=== PATIENT | male | born 1975 | race Caucasian/White ===

== ENCOUNTER 2020-11-19 15:17 | Outpatient (REF) | payer OTHER, SELFPAY ==
--- NOTE | ~2020-11-19 | XR_ITS ---
EXAMINATION: XR ANKLE, RIGHT CLINICAL INFORMATION: Right ankle swelling/discomfort for one month. COMPARISON: None. TECHNIQUE: AP, lateral, and mortise views of the right ankle. FINDINGS: No acute fracture or dislocation. The ankle mortise is maintained. No joint space narrowing or marginal osteophytes. No osseous erosion. Soft tissue swelling/thickening in the region of the distal Achilles, likely indicating underlying tendinopathy. XR/XR ankle RT 2V IMPRESSION: Soft tissue swelling/thickening in the region of the distal Achilles, likely indicating underlying tendinopathy.
== END 2020-11-19 15:18 | disposition home or self-care (01) ==
LOC: HO.XRAY 15:17
PROVIDERS: PCP Physician Assistant; Visit Provider Family Medicine
DX: R07.89 Other chest pain (principal); M25.471 Effusion, right ankle
CPT/HCPCS: 73600

== ENCOUNTER 2020-11-20 08:47 | Outpatient (REF) | payer OTHER, SELFPAY ==
[2020-11-20 10:25] LABS: Alanine Aminotransferase 23 U/L (0-40); Albumin Level 4.3 g/dL (3.5-5.0); Alkaline Phosphatase 57 U/L (39-117); Anion Gap 13 (12-20); Aspartate Amino Transferase 20 U/L (5-37); Bilirubin Total 0.8 mg/dL (0.0-1.0); Blood Urea Nitrogen 13 mg/dL (9-16); Carbon Dioxide 29 mmol/L (22-29); Chloride 103 mmol/L (96-108); Cholesterol 297 mg/dL; Estimated Glomerular Filt Rate > 60; Glucose Fasting 108 mg/dL (60-99); HDL Cholesterol 53 mg/dL; LDL Cholesterol Calculated 194 mg/dl; Potassium 4.2 mmol/L (3.3-5.1); Sodium 141 mmol/L (135-145); Total Protein 6.8 g/dL (6.5-8.0); Triglycerides 252 mg/dL
[2020-11-20 10:50] LABS: Prostate Specific Antigen Scr 0.28 ng/mL (<0.05-4.0); TSH reflex Free T4 0.61 uIU/mL (0.32-4.0)
== END 2020-11-20 08:48 | disposition home or self-care (01) ==
LOC: HO.LAB 08:47
PROVIDERS: PCP Physician Assistant; Visit Provider Family Medicine
DX: Z00.00 Encounter for general adult medical examination without abnormal findings (principal); Z12.5 Encounter for screening for malignant neoplasm of prostate
CPT/HCPCS: 36415; 80053; 80061; 84153; 84443

== ENCOUNTER 2020-12-26 16:00 | Outpatient (RCR) | payer OTHER, SELFPAY ==
--- NOTE | 2020-11-09 16:32 | MHC.PT.EP ---
[facility] Office [place] Office [place] Office [address] Donnie Skinner [address] [phone] F: [phone] F: [phone] F: [phone] F: [phone] Physical Therapy Plan of Care Date of Evaluation: 11/09/20 Date of Surgery: NA Diagnosis: EFFUSION R ANKLE Assessment: Pt IS 45 YO M REFERRED TO PT FROM DR LAWRENCE WITH R ANKLE PAIN/SWELLING OF INSIDIOUS ONSET WORSENING OVER LAST 2 MONTHS. Pt REPORTS 4 KNEE SURGERIES R (LAST OVER A YEAR AGO WITH PT AFTER). PRESENTS WITH GENU VARUS AND PES PLANUS WITH SWELLING MED ACHILLES AREA WITH SLIGHT TTP HERE WITH SLIGHT DECREASED IN R ANKLE EVERSION STRENGTH. Pt SHOULD BENEFIT FROM PT TO ADDRESS THESE ISSUES. Frequency and Duration: The patient will be seen 2X/WK X 6 WKS Short Term Goals: 1. INCREASED AWARENESS ANKLE CARE 2. DECREASED SWELLING NOTED/REPORTED 3. I KT IF BENEFICIAL Vp Analysis Goals: 1.I HEP WITH DC EX PLAN 2. IMPROVED LEFI 3. DECREASED R ANKLE PAIN AT LEAST 50% WITH ADLS Treatment Plan: Modalities to reduce pain, spasms and effusion. Manual therapy to restore motion and function. Therapeutic exercise to improve strength and flexibility. Neuromuscular re-education for posture and balance. Therapeutic activities to return to functional activities of daily living. Electronically signed by: GHAZAL REIS PT Please sign and return to therapist. Thank you for your referral.
--- NOTE | 2021-01-18 13:26 | MHC.PT.DC ---
[facility] Office [place] Office [place] Office [address] Donnie Skinner 140 [facility] [phone] F: [phone] F: [phone] F: [phone] F: [phone] Physical Therapy Discharge Report Diagnosis: EFFUSION R ANKLE Date of Surgery: NA Date of Evaluation: 11/09/20 Date of Discharge: 12/26/20 Treatments to Date: 10 Cancellations to Date: No Shows to Date: Discharge Status: Independent with HEP Patient Elected to Stop Discharge Summary: Pt WAS LAST SEEN ON 12/26/20 WHERE SUBJECTIVELY (PER NOTE) [pt stated he feels he is back to where he first started. A friend of his recently so he was not as compliant w/ HEP as he had been. He also was doing a lot of stairs.]. PLAN WAS TO SEE Pt FOR 1 WK FU (BUT NOT SCHEDULED) [ End ] Electronically signed by: GHAZAL REIS PT Please sign and return to therapist. Thank you for your referral.
== END 2021-01-18 13:38 | disposition other institution (70) ==
LOC: HO.PT 16:00
PROVIDERS: Visit Provider Family Medicine
DX: M25.471 Effusion, right ankle (principal)
CPT/HCPCS: 97033; 97110; 97112; 97140; 97162; 97530

== ENCOUNTER 2021-04-15 18:18 | Outpatient (REF) | payer OTHER, SELFPAY ==
[2021-04-15 19:22] LABS: Influenza A PCR NEGATIVE (Negative); Influenza B PCR NEGATIVE (Negative); Resp Syncy Virus RNA Qual PCR NEGATIVE (Negative); SARS COV2 PCR INHOUSE NEGATIVE (Negative)
== END 2021-04-15 18:19 | disposition home or self-care (01) ==
LOC: HO.LNP 18:18
PROVIDERS: Visit Provider Family Medicine
DX: Z20.822 Contact with and (suspected) exposure to COVID-19 (principal); B34.9 Viral infection, unspecified
CPT/HCPCS: 0241U

== ENCOUNTER 2021-05-22 16:20 | Outpatient (REF) | payer OTHER, SELFPAY ==
--- NOTE | ~2021-05-22 | US_ITS ---
EXAMINATION: US SCROTUM CLINICAL INFORMATION: Scrotal pain, greater on left. N50.819. COMPARISON: None TECHNIQUE: A sonogram of the scrotum was performed assessing pastrana-scale appearance and color Doppler flow. Spectral Doppler analysis of the arterial and venous flow were performed in the testes bilaterally. FINDINGS: RIGHT: Right testicle measures 3.6 x 3.4 x 3.7 cm, volume 24 mL. No focal testicular parenchymal lesions are visualized. Normal color flow with low resistance waveform. No torsion. Small right epididymal head cyst measuring 0.3 cm. No right hydrocele or varicocele is seen. Right epididymal Doppler flow is within normal LEFT: Left testicle measures 3.6 x 2.4 x 5.0 cm, volume 22 mL. No focal testicular parenchymal lesions are visualized. Normal color flow with low resistance waveform. No torsion. Left epididymal head is normal in size. No left hydrocele or varicocele is seen. Left epididymal Doppler flow is within normal. US/US scrotum IMPRESSION: 1. No intratesticular mass or torsion. No hydrocele. 2. Small right epididymal head cyst under 5 mm.
== END 2021-05-22 16:21 | disposition home or self-care (01) ==
LOC: HO.US 16:20
PROVIDERS: PCP Family Medicine; Visit Provider Family Medicine
DX: N50.819 Testicular pain, unspecified (principal)
CPT/HCPCS: 76870

== ENCOUNTER 2021-08-09 13:42 | Outpatient (REF) | payer OTHER, SELFPAY ==
[2021-08-09 15:02] LABS: Binax Internal Control QC Valid; Binax Now Covid-19 Ag Negative (Negative)
== END 2021-08-09 13:43 | disposition home or self-care (01) ==
LOC: HO.LAB 13:42
PROVIDERS: Visit Provider Internal Medicine
DX: Z20.822 Contact with and (suspected) exposure to COVID-19 (principal)
CPT/HCPCS: 36415; C9803

== ENCOUNTER 2021-08-13 09:08 | Outpatient (REF) | payer OTHER, SELFPAY ==
[2021-08-13 11:43] LABS: MANUAL DIFF FLAG NO
[2021-08-13 11:57] LABS: Basophils Percent Auto 0.9 % (0-2); Eosinophils Absolute Auto 0.3 X10*3/uL (0.0-0.4); Eosinophils Percent Auto 6.7 % (0-4); Hematocrit 45.3 % (42.0-52.0); Hemoglobin 15.1 g/dl (14.0-18.0); Lymphocytes Absolute Auto 1.7 X10*3/uL (1.2-4.9); Lymphocytes Percent Auto 35.8 % (20-40); Mean Corpuscular HGB Conc 33.3 g/dl (31.0-36.0); Mean Corpuscular Hemoglobin 30.6 pg (27.0-33.0); Mean Corpuscular Volume 91.9 fL (80.0-98.0); Mean Platelet Volume 10.6 fL (9.4-12.4); Monocytes Absolute Auto 0.4 X10*3/uL (0.1-1.2); Monocytes Percent Auto 7.7 % (2-11); Neutrophils Absolute Auto 2.3 x10*3/uL (2.0-8.3); Neutrophils Percent Auto 48.9 % (45-73); Platelet Count 272 X10*3/uL (160-400); Red Blood Count 4.93 X10*6/uL (4.60-5.80); White Blood Count 4.7 X10*3/uL (4.8-10.8)
[2021-08-13 12:20] LABS: Alanine Aminotransferase 22 U/L (0-40); Albumin Level 4.2 g/dL (3.5-5.0); Alkaline Phosphatase 58 U/L (39-117); Anion Gap 8 (12-20); Aspartate Amino Transferase 16 U/L (5-37); Bilirubin Total 0.6 mg/dL (0.0-1.0); Blood Urea Nitrogen 13 mg/dL (9-16); Calcium 9.6 mg/dL (8.4-10.2); Carbon Dioxide 32 mmol/L (22-29); Chloride 104 mmol/L (96-108); Cholesterol 250 mg/dL; Estimated Glomerular Filt Rate > 60; Glucose Random 115 mg/dL (60-115); HDL Cholesterol 56 mg/dL; LDL Cholesterol Calculated 166 mg/dl; Potassium 4.7 mmol/L (3.3-5.1); Rheumatoid Factor < 15.0 IU/mL (<15.0); Sodium 139 mmol/L (135-145); Total Protein 7.1 g/dL (6.5-8.0); Triglycerides 140 mg/dL
[2021-08-13 13:00] LABS: Erythrocyte Sedimentation Rate 3 MM/HR (0-15)
[2021-08-15 13:42] LABS: CRP High Sensitivity 1.1 mg/L
== END 2021-08-13 09:09 | disposition home or self-care (01) ==
LOC: HO.WFDLDS 09:08
PROVIDERS: Visit Provider Family Medicine
DX: Z00.00 Encounter for general adult medical examination without abnormal findings (principal); E78.2 Mixed hyperlipidemia; M25.50 Pain in unspecified joint
CPT/HCPCS: 36415; 80053; 80061; 85025; 85652; 86141; 86431

== ENCOUNTER 2021-10-01 11:22 | Outpatient (REF) | payer OTHER, SELFPAY ==
--- NOTE | ~2021-10-01 | XR_ITS ---
EXAMINATION: XR LUMBOSACRAL SPINE WITH OBLIQUES CLINICAL INFORMATION: Flexion/extension views to evaluate instability. COMPARISON: None TECHNIQUE: AP, both oblique, and lateral views of the lumbar spine. Lateral view of the lumbosacral junction. FINDINGS: There is normal lumbar lordosis. The vertebral heights are normal. There is grade 1 anterolisthesis L5 over S1. There is loss of L5-S1 disc height. The rest of the disc heights and alignment is normal. No acute fracture, lytic or sclerotic process seen. On oblique views, there is bilateral L5 pars defect. The paravertebral soft tissues are normal. XR/XR lumbar spine 6V w bending IMPRESSION: Bilateral L5 pars defect with grade 1 anterolisthesis L5 over S1. There is no acute fracture or lytic process seen. Mild degenerative disc changes at L5-S1 disc level.
== END 2021-10-01 11:23 | disposition home or self-care (01) ==
LOC: HO.XRAY 11:22
PROVIDERS: PCP Family Medicine; Visit Provider Physical Medicine & Rehabilitation
DX: M53.2X7 Spinal instabilities, lumbosacral region (principal)
CPT/HCPCS: 72114

== ENCOUNTER → 2021-11-26 14:30 | Outpatient (BNVA) | payer OTHER, SELFPAY | PROVIDERS: PCP Family Medicine; Visit Provider Urology | DX: N50.819 Testicular pain, unspecified (principal) | CPT/HCPCS: 99202 ==

== ENCOUNTER 2021-12-19 12:01 | Outpatient (REF) | payer OTHER, SELFPAY ==
[2021-12-19 14:32] LABS: Alanine Aminotransferase 20 U/L (0-40); Albumin Level 4.4 g/dL (3.5-5.0); Alkaline Phosphatase 61 U/L (39-117); Anion Gap 13 (12-20); Aspartate Amino Transferase 16 U/L (5-37); Bilirubin Total 0.6 mg/dL (0.0-1.0); Blood Urea Nitrogen 10 mg/dL (9-16); Calcium 9.9 mg/dL (8.4-10.2); Carbon Dioxide 29 mmol/L (22-29); Chloride 102 mmol/L (96-108); Cholesterol 280 mg/dL; Estimated Glomerular Filt Rate > 60; Glucose Fasting 94 mg/dL (60-99); HDL Cholesterol 53 mg/dL; LDL Cholesterol Calculated 205 mg/dl; Potassium 4.7 mmol/L (3.3-5.1); Sodium 139 mmol/L (135-145); Total Protein 7.3 g/dL (6.5-8.0); Triglycerides 113 mg/dL
[2021-12-19 14:39] LABS: Prostate Specific Antigen Scr 0.26 ng/mL (<0.05-4.0)
== END 2021-12-19 12:02 | disposition home or self-care (01) ==
LOC: HO.WFDLDS 12:01
PROVIDERS: Visit Provider Family Medicine
DX: Z00.00 Encounter for general adult medical examination without abnormal findings (principal); Z12.5 Encounter for screening for malignant neoplasm of prostate; E78.2 Mixed hyperlipidemia
CPT/HCPCS: 36415; 80053; 80061; 84153; 84443

== ENCOUNTER → 2022-03-20 10:52 | Outpatient (BNVA) | payer OTHER, SELFPAY | PROVIDERS: PCP Family Medicine; Visit Provider Nurse Practitioner | DX: Z01.818 Encounter for other preprocedural examination (principal); K21.9 Gastro-esophageal reflux disease without esophagitis | CPT/HCPCS: 99202; 99212 ==

== ENCOUNTER 2022-04-14 09:44 | Outpatient (REF) | payer OTHER, SELFPAY ==
[2022-04-14 10:40] LABS: Cholesterol 270 mg/dL; HDL Cholesterol 54 mg/dL; LDL Cholesterol Calculated 199 mg/dl; Triglycerides 87 mg/dL
== END 2022-04-14 09:45 | disposition home or self-care (01) ==
LOC: HO.LAB 09:44
PROVIDERS: PCP Family Medicine; Visit Provider Family Medicine
DX: E78.2 Mixed hyperlipidemia (principal)
CPT/HCPCS: 36415; 80061

== ENCOUNTER 2022-07-15 08:29 | Day surgery (SDC) | payer OTHER, SELFPAY ==
[2022-07-08 15:31] VITALS: BMI 22.8
--- NOTE | 2022-07-14 12:11 | HO.ANESPROP2 ---
Documented by User: Ruby Rodriguez NP 07/14/22 12:14 HPI - Anesthesia Eval Consult details Narrative: 46yo M Colonoscopy PMFSH Active Problems Active Problems: All Active Problems (Updated 07/08/22 @ 15:24 by Sandra Reese RN) Right ankle swelling (Acute) Heartburn (Acute) Anxiety (Acute) Laboratory examination ordered as part of a routine general medical examination (Acute) Screening for prostate cancer (Acute) Atypical chest pain (Acute) Elevated fasting blood sugar (Acute) Hyperlipidemia (Acute) Screening for colon cancer (Acute) Adult general medical exam (Acute) Viral illness (Acute) Intercostal muscle pain (Acute) Testicular pain (Acute) Mixed hyperlipidemia (Acute) Joint pain (Acute) Bilateral hip pain (Acute) Low back pain (Acute) Spondylosis without myelopathy or radiculopathy, lumbar region (Acute) Screening for prostate cancer (Acute) Preop examination (Acute) Past Medical History Medical History Anxiety Bilateral hip pain Depression Elevated cholesterol GERD (gastroesophageal reflux disease) Lumbar spondylosis Surgical History Surgical History H/O right knee surgery Social History Social History Housing: House Alcohol intake: current Alcohol intake frequency: 0-2 drinks per day Alcohol type: beer Patient Tobacco Use Status: Never used Tobacco e-Cigarette/Vaping Use: Never Used Second Hand Smoke Exposure: No service: No Current occupational status: employed Current occupational exposures/hazards: No Cognitive needs: No Hearing needs: No Vision needs: No Meds Allergies Allergy/AdvReac Type Severity Reaction Status Date / Time morphine AdvReac Intermediate nausea, Verified 07/12/22 09:05 vomiting Home Medications Medication Instructions Recorded Confirmed Last Taken Type lorazepam 0.5 mg tablet 0.5 mg PO anxiety 11/06/20 07/12/22 Unknown History buspirone 5 mg tablet 5 mg PO DAILY PRN 12/19/21 07/12/22 Unknown History gabapentin 300 mg capsule 300 mg PO TID 02/26/22 07/12/22 Unknown History Exam Exam Date and Time: July 14, 2022 1211 Height,Weight and Vital Signs: Height 5 ft 9 in Weight 70.307 kg Pertinent Lab Results Pertinent Lab Results: Laboratory Tests 08/13/21 12/19/21 09:20 12:10 WBC 4.7 L Hgb 15.1 Hct 45.3 Plt Count 272 Sodium 139 Potassium 4.7 Chloride 102 Carbon Dioxide 29 BUN 10 Creatinine 0.86 Assessment and Plan Assessment Anesthesia Assessment: Chart Reviewed Documented by User: Deana Max MD 07/15/22 11:54 [facility] Past Medical History Medical History Anxiety Bilateral hip pain Depression Elevated cholesterol GERD (gastroesophageal reflux disease) Lumbar spondylosis Functional capacity: independent ambulation Family History Family history of problems with anesthesia: No Surgical History Surgical History H/O right knee surgery History of Problems with Anesthesia: No Social History Social History Housing: House Alcohol intake: current Alcohol intake frequency: 0-2 drinks per day Alcohol type: beer Patient Tobacco Use Status: Never used Tobacco e-Cigarette/Vaping Use: Never Used Second Hand Smoke Exposure: No service: No Current occupational status: employed Current occupational exposures/hazards: No Cognitive needs: No Hearing needs: No Vision needs: No Meds Allergies Allergy/AdvReac Type Severity Reaction Status Date / Time morphine AdvReac Intermediate nausea, Verified 07/12/22 09:05 vomiting Home Medications Medication Instructions Recorded Confirmed Last Taken Type lorazepam 0.5 mg tablet 0.5 mg PO anxiety 11/06/20 07/12/22 Unknown History buspirone 5 mg tablet 5 mg PO DAILY PRN 12/19/21 07/12/22 Unknown History gabapentin 300 mg capsule 300 mg PO TID 02/26/22 07/12/22 Unknown History Exam Airway Mallampati Class: II TM Dist: >3cm Neck ROM: Full Heart: RRR Lungs: CTA Assessment and Plan Final Anesthetic Review Family History of Problems with Anesthesia: No History of Problems with Anesthesia: No ASA Class: II Final Preanesthetic Review: No Changes in Pt Med Stat, Meds/Allgs Chart Reviewed, Consent Obtained/Reviewed and Anes Risks/Benef Reviewed Patient Risk: Low Procedure Risk: Low Anesthetic Plan Disposition: Standard PACU
[2022-07-15 08:44] VITALS: BMI 22.6
[2022-07-15 08:50] VITALS: BP 122/86; PULSE 89; RESP 16; TEMP 36.7; O2SAT 96
--- NOTE | 2022-07-15 09:07 | P.HPSUR_ITS ---
Pre-Procedural Eval Section A Date of Service: 07/15/22 Section B Chief Complaint: screening Relevant Social History: None Present Medications: see Short Stay Collaborative assessment Medical History: Significant History (Anxiety Bilateral hip pain Depression Elevated cholesterol GERD (gastroesophageal reflux disease) Lumbar spondylosis) History of Previous Operations: Relevant previous surgery/procedure and date(s) (knee surgery) Allergies: Allergies Allergy/AdvReac Type Severity Reaction Status Date / Time morphine AdvReac Intermediate nausea, Verified 07/12/22 09:05 vomiting Review of Systems Sugical H&P ROS: Negative: Constitution, Cardiovascular, Respiratory, Neurol ogical, Psychiatric, Hem-Onc, Allergic/Immunologic, Gastrointestinal, Genitourinary, Musculoskeletal, Integumentary, Endocrine and Eyes/Ears/Nose/Throat Exam Surgical H&P Exam: Normal: HEENT, Normal: Heart, Normal: Lungs, Normal: Extremities, Normal: Abdomen, Normal: Skin and Normal: Neurological Plan Diagnosis/Plan: Unchanged I have reviewed the history and physical and performed a pertinent physical examination on my patient. No changes have occurred unless specified. Time Spent With Patient Time: Total time managing care of this patient today ____ minutes.
[2022-07-15] MEDS: Lactated Ringers 1,000 ML 100 ML IVCONT (09:09)
--- NOTE | 2022-07-15 09:30 | W.PM.OPN ---
Operative Note Operative Note Date of Service: 07/15/22 Narrative: Operative Information Procedure Description: Colonoscopy Indication: screening Anesthesia: MAC COLONOSCOPY Instrument: Olympus variable stiffness pediatric scope 190L Colonoscopy Monitoring: Vital signs and clinical assessment, continuous EKG monitoring, Pulse oximetry, Carbon Dioxide monitoring and blood pressure monitoring were done throughout the procedure. Colon withdrawal time was 13 minutes. Procedure: The patient was placed in the left lateral decubitis position and pre-procedure medications were administered. After a digital rectal examination of the ano-rectum, the video colonoscope was inserted into the rectum and advanced through the colon to the cecum/TI. The colonoscope was slowly withdrawn in a retrograde panoramic fashion and the colon mucosa was carefully examined including a retroflexed view of the rectum. Findings and interventions are described below. Procedure Difficulty: easy Findings: Terminal Ileum-normal Cecum: 10 mm flat polyp lifted with saline and removed en bloc with cold snare Ascending Colon: normal Transverse Colon - x 2 sessile polyps 8-10 mm removed with cold snare Descending Colon: 12 mm sessile polyp removed with cold snare Sigmoid Colon: severe diverticulosis with wide mouthed tics noted Rectum: Retroflexion with small internal hemorrhoids, grade I Anorectum - normal Colon preparation: [place] Bowel Preparation Scale Right colon; 2 Transverse colon: 3 Left colon; 3 (0 = Unprepared colon segment with mucosa not seen due to solid stool that cannot be cleared. 1 = Portion of mucosa of the colon segment seen, but other areas of the colon segment not well seen due to staining, residual stool and/or opaque liquid. 2 = Minor amount of residual staining, small fragments of stool and/or opaque liquid, but mucosa of colon segment seen well. 3 = Entire mucosa of colon segment seen well with no residual staining, small fragments of stool or opaque liquid) Impression and Post Procedure Diagnosis: polyps internal hemorrhoids diverticular disease Plan: High fiber diet leaflet Avoid straining at stool, epsom salts and sitz bath, anusol supps or cream Repeat Colonoscopy in 3 years due to polyp burden or earlier if clinically indicated Above findings were reviewed with the patient and relevant handouts were provided if indicated.
[2022-07-15 10:14] VITALS: BP 91/46; PULSE 91; RESP 16; TEMP 36.4; O2SAT 96
[2022-07-15 10:29] VITALS: BP 95/56; PULSE 86; RESP 16; O2SAT 96
[2022-07-15 10:44] VITALS: BP 102/60; PULSE 77; RESP 16; TEMP 36.3; O2SAT 97
--- NOTE | 2022-07-15 11:56 | HO.POSTANES ---
Post Anesthesia Evaluation Post Anesthesia Evaluation Vital Signs: Vital Signs Temp Pulse Resp BP Pulse Ox O2 Del Method O2 Flow Rate 07/15/22 10:44 97.3 F 77 16 102/60 97 Room Air 07/15/22 10:29 86 16 95/56 L 96 Room Air 07/15/22 10:14 97.6 F 91 16 91/46 L 96 Nasal Cannula 2 07/15/22 08:50 98.1 F 89 16 122/86 96 Room Air Anesthesia: Monitored Mental Status: Awake Pain Control: Satisfactory Nausea/Vomiting: None Hydration: Adequate Anesthesia-Related Issues: No Anes. Related Issues
== END 2022-07-15 11:03 | disposition home or self-care (01) ==
PROVIDERS: PCP Family Medicine; Visit Provider Internal Medicine Gastroenterology
PROC: 0DJD8ZZ Inspection of Lower Intestinal Tract, Via Natural or Artificial Opening Endoscopic (ICD-10-PCS; CPT 45378; principal; 2022-07-15 10:00)
DX: Z12.11 Encounter for screening for malignant neoplasm of colon (principal); D12.0 Benign neoplasm of cecum; D12.3 Benign neoplasm of transverse colon; D12.4 Benign neoplasm of descending colon; K57.30 Diverticulosis of large intestine without perforation or abscess without bleeding; K64.0 First degree hemorrhoids; K21.9 Gastro-esophageal reflux disease without esophagitis; E78.00 Pure hypercholesterolemia, unspecified; F41.1 Generalized anxiety disorder; Z79.899 Other long term (current) drug therapy; Z88.8 Allergy status to other drugs, medicaments and biological substances
CPT/HCPCS: 45385; 45381; 88305

== ENCOUNTER → 2022-07-29 11:18 | Outpatient (BNVA) | payer OTHER, SELFPAY | PROVIDERS: PCP Family Medicine; Visit Provider Nurse Practitioner | DX: K57.30 Diverticulosis of large intestine without perforation or abscess without bleeding (principal); D12.0 Benign neoplasm of cecum; D12.3 Benign neoplasm of transverse colon; D12.4 Benign neoplasm of descending colon; K64.8 Other hemorrhoids; Z98.890 Other specified postprocedural states | CPT/HCPCS: 99212 ==

== ENCOUNTER 2022-07-30 12:00 | Outpatient (RCR) | payer OTHER, SELFPAY | END 2022-08-06 09:33 | disposition home or self-care (01) | LOC: HO.PT 12:00 | PROVIDERS: PCP Family Medicine; Visit Provider Orthopaedic Surgery | DX: M54.50 Low back pain, unspecified (principal) | CPT/HCPCS: 97110; 97161; 97530 ==

== ENCOUNTER 2022-08-19 09:02 | Outpatient (REF) | payer OTHER, SELFPAY ==
[2022-08-19 10:05] LABS: Cholesterol 196 mg/dL; HDL Cholesterol 60 mg/dL; LDL Cholesterol Calculated 122 mg/dl; Triglycerides 72 mg/dL
== END 2022-08-19 09:03 | disposition home or self-care (01) ==
LOC: HO.LAB 09:02
PROVIDERS: PCP Family Medicine; Visit Provider Family Medicine
DX: E78.5 Hyperlipidemia, unspecified (principal)
CPT/HCPCS: 36415; 80061

== ENCOUNTER 2023-04-17 08:54 | Outpatient (AMB) | payer OTHER, SELFPAY ==
[2023-04-17 09:03] VITALS: BP 116/62; PULSE 75; RESP 12; TEMP 36.7; O2SAT 99; BMI 23.8
--- NOTE | 2023-04-17 09:03 | MHC.PC.OV ---
Vital Signs 04/17/23 09:03 Height 5 ft 9 in Weight 161 lb BMI 23.8 BP 116/62 Blood Pressure Location Rt brachial Position Sitting Respiration 12 Pulse 75 Pulse Source Pulse Oximeter Temp 98.1 F Temp Source Oral Pulse Oximetry (%) 99 Oxygen Delivery Method Room Air Intake Visit Reasons: Lymph Node Pain Intake Note: Patient is here today with hearing blockage in right ear. Allergies morphine Adverse Reaction (Intermediate, Verified 04/17/23 09:34) nausea, vomiting Medication List - Last Reconciled 04/17/23 by Ainsley Meneses CNP atorvastatin 20 mg PO BEDTIME gabapentin 300 mg PO TID 30 days lorazepam 0.5 mg PO Tobacco use date assessed: 04/17/23 Dental Screening Dental Screen Date: 04/17/23 Did you have a dental visit in the last 12 months?: Yes Did you have a dental problem in the last 6 months where you did not have access to dental care?: No Was dental information given to patient?: Yes HPI HPI Comments History of Present Illness Details 47 year old male presents with c/o blockage both ears, right greater than left. He also reports intermittent ringing of the right ear for the past 2 days. No ear pain, headache, fever, chills body aches, fatigue, or weakness. He reports intermittent suprapubic pressure with intermittent sharp pain to his left side. His symptoms have been ongoing for a month. He note she he had normal colonoscopy last year. He denies acute symptoms. He denies n/v, bowel changes or blood in his stool. He denies dysuria, urinary frequency/urgency, or blood in the urine. 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 Terry Zacarias, July Sepulveda, Kev Ling and colleagues, with an educational lincoln from [employer]. Review of Systems Const Details: Const Denies chills, Denies fatigue, Denies fever(s), Denies headache(s) and Denies weakness ENT Reports as per HPI Card Denies chest pain, Denies lightheadedness, Denies dyspnea and Denies other (Palpitations) Resp Denies cough, Denies dyspnea, Denies wheezing and Denies other ( shortness of breath) GI Reports as per HPI Denies hematuria and Denies dysuria Musc Denies abnormal gait, Denies myalgias, Denies arthralgias, Denies numbness and Denies tingling Skin/Breast Denies rash, Denies unusual bruising and Denies wounds Neuro Denies abnormal gait, Denies dizziness, Denies headache(s), Denies memory loss, Denies numbness, Denies Sensory deficit (Neuro), Denies tingling and Denies weakness Psych Denies anxiety, Denies depression, Denies memory loss Endo Denies cold intolerance, Denies fatigue, Denies heat intolerance, Denies polydipsia and Denies polyuria Aller/Immun Denies wheezing Physical exam (Primary Care) Vital Signs: Last Vital Signs Temp 98.1 F 04/17/23 09:03 Pulse 75 04/17/23 09:03 Resp 12 04/17/23 09:03 BP 116/62 04/17/23 09:03 Pulse Ox 99 04/17/23 09:03 Oxygen Delivery Method Room Air 04/17/23 09:03 BMI result Body Mass Index 23.8 Tobacco/Smoking Status: Tobacco use Status Tobacco use date assessed 04/17/23 04/17/23 09:12 Patient Tobacco Use Status Never used Tobacco 04/17/23 09:12 e-Cigarette/Vaping Use Never Used 04/17/23 09:12 Thrive Assessment: Date of Thrive Assessment Date Thrive assessed 08/21/22 04/17/23 09:12 Const Other: General: no acute distress and well developed Nutritional Appearance: well nourished Orientation/consciousness: patient oriented x3 HENSD Head is normocephalic Impacted cerumen to both ears occluding the TMs Nasal turbinates and oropharynx are pink and moist Sinuses are nontender with palpation No auricular or cervical lymphadenopathy Eyes General: appearance normal, both eyes and all related structures Pupils: Equal, round and reactive pupils present EOM: EOMs intact bilaterally Resp Effort & Inspection: normal respiratory effort Auscultation: clear to auscultation bilaterally Cardio Rate: regular rate Rhythm: regular rhythm Heart sounds: S1 normal heart sound present, S2 normal heart sound present, no gallops, no murmurs and no rubs GI Palpation (GI): No Abdominal aortic bruit present, Soft to palpation, nontender, No hepatosplenomegaly present and No Rebound tenderness present Auscultation: Hyperactive bowel sounds General: Yes no CVA tenderness Back/Spine/Pelvis Back: no CVA tenderness Cervical Spine: cervical ROM normal and No Cervical spine tenderness Thoracic/Lumbar Spine: thoraco-lumbar ROM normal, No pain with thoraco-lumbar ROM, No thoracic spinal tenderness and No lumbar spinal tenderness Extrem General: Yes normal to inspection, No edema and No calf tenderness Skin General: warm and dry. Normal skin color. Normal skin turgor Lesions: no lesions Rashes: no rashes Trauma: no lacerations or abrasions Wounds: no wounds Nails: normal Neuro General: patient oriented x3, gait normal and no focal neuro deficit Cranial nerves: Yes Equal, round and reactive pupils present Cognition (Neuro): normal cognition Gait exam (Neuro): Normal gait present Sensory Exam: No Sensory deficit (Neuro) Psych Appearance: grossly normal Affect: normal affect Attitude: cooperative Thought process: Normal thought process present Assessment and Plan Assessment & Plan (1) Impacted cerumen of both ears: Code(s): H61.23 - Impacted cerumen, bilateral Plan: Impacted cerumen of both ears occluding the TMs Significant amount of cerumen removed from both ears with irrigation Normal ear canal and TM bilaterally Patient reports significant hearing improvement Advised to follow-up with new or worsening symptoms Verbalized understanding and agree with the plan. (2) Suprapubic pain: Code(s): R10.2 - Pelvic and perineal pain Plan: He reports intermittent suprapubic pressure with intermittent sharp pain to his left side. His symptoms have been ongoing for a month. No associated symptoms. Abdomen is soft, nontender, nondistended, hyperactive bowel sounds x4 Likely muscular pain. May also be attributed to GI issues including excessive gas UTI is also possible. UA ordered with culture May take ibuprofen or Tylenol for pain or discomfort Warm/cold compresses encouraged Follow-up with PCP with new or worsening symptoms Verbalized understanding and agreed with treatment plan. Orders: Orders UA CC w/rflx Micro + Cult Today R10.2 - Pelvic and perineal pain Coding Level of Care Code Est Pt Level 3 (33688) Diagnoses Impacted cerumen of both ears H61.23 Suprapubic pain R10.2
== END 2023-04-17 09:57 | disposition home or self-care (01) ==
PROVIDERS: PCP Family Medicine; Visit Provider Nurse Practitioner Family
DX: H61.23 Impacted cerumen, bilateral (principal); R10.2 Pelvic and perineal pain
CPT/HCPCS: 99213

== ENCOUNTER 2023-04-24 12:50 | Outpatient (REF) | payer OTHER, SELFPAY ==
[2023-04-24 13:39] LABS: Appearance Urine Clear; Color Urine Yellow; Glucose Urine UA Negative (Negative); Leukocyte Esterase Urine Negative (Negative); Nitrite Urine Negative (Negative); PH 7.5 (5.0-9.0); Specific Gravity - Urine <= 1.005 (1.005-1.025); Urine Blood Negative (Negative); Urine Ketones Negative (Negative); Urine Protein Negative (Neg-Trace)
[2023-04-24 14:29] LABS: Creatinine Urine 30.34 mg/dL; Microalbumin Urine < 5.0 mg/L
== END 2023-04-24 12:51 | disposition home or self-care (01) ==
LOC: HO.LAB 12:50
PROVIDERS: PCP Family Medicine; Visit Provider Nurse Practitioner Family
DX: Z00.00 Encounter for general adult medical examination without abnormal findings (principal); R10.2 Pelvic and perineal pain; I10 Essential (primary) hypertension
CPT/HCPCS: 81003; 82043; 82570

== ENCOUNTER 2023-05-14 08:19 | Outpatient (AMB) | payer OTHER, SELFPAY ==
--- NOTE | 2023-05-14 08:27 | MHC.PC.OV ---
Vital Signs 05/14/23 08:28 Height 5 ft 9 in Weight 154 lb 8 oz BMI 22.8 BP 108/64 Blood Pressure Location Lt brachial Position Sitting Respiration 12 Pulse 58 Pulse Source Pulse Oximeter Temp 98.7 F Temp Source Oral Pulse Oximetry (%) 99 Oxygen Delivery Method Room Air Intake Visit Reasons: suprapubric pain Intake Note: Patient is here to discuss abdominal pain x6 weeks. Patient reports he has tried ibuprofen and dietary changes. Patient states this has helped some. 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 pain. He reports abd. pain x6 weeks. He has trialed ibuprofen and dietary changes which has helped some. Pt notes abd. pain seems to be exacerbated by greasy food. Pt notes bowel movements are 75% solid, 25% loose. Pt notes he had a colonoscopy about 6 months ago which showed some polyps and diverticuloses. 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 Terry Zacarias, July Sepulveda, Kev Ling and colleagues, with an educational lincoln from [employer]. Review of Systems Const Denies chills, Denies fatigue, Denies fever(s), Denies headache(s) and Denies weakness ENT Denies dizziness and Denies headache(s) Card Denies dyspnea Resp Denies cough, Denies dyspnea, Denies wheezing and Denies other (shortness of breath) GI Reports abdominal pain Musc Denies numbness and Denies tingling Neuro Denies dizziness, Denies headache(s), Denies numbness, Denies tingling and Denies weakness Psych Denies anxiety and Denies depression Endo Denies fatigue Aller/Immun Denies wheezing Physical exam (Primary Care) Vital Signs: Last Vital Signs Temp 98.7 F 05/14/23 08:28 Pulse 58 05/14/23 08:28 Resp 12 05/14/23 08:28 BP 108/64 05/14/23 08:28 Pulse Ox 99 05/14/23 08:28 Oxygen Delivery Method Room Air 05/14/23 08:28 BMI result Body Mass Index 22.8 Tobacco/Smoking Status: Tobacco use Status Tobacco use date assessed 04/17/23 05/14/23 08:37 Patient Tobacco Use Status Never used Tobacco 05/14/23 08:37 e-Cigarette/Vaping Use Never Used 05/14/23 08:37 Thrive Assessment: Date of Thrive Assessment Date Thrive assessed 08/21/22 05/14/23 08:37 Const General: well developed; No acute distress Nutritional Appearance: well nourished Orientation/consciousness: patient [facility]: Yes normocephalic and Yes atraumatic Eyes General: appearance normal, both eyes and all related structures Pupils: Equal, round and reactive pupils present EOM: EOMs intact bilaterally Resp Effort & Inspection: normal respiratory effort Neuro General: patient oriented x3 and gait normal Cranial nerves: Yes Equal, round and reactive pupils present Psych Affect: normal affect Assessment and Plan Assessment & Plan (1) Abdominal pain: Code(s): R10.9 - Unspecified abdominal pain Plan: 47-year-old?male?with?colonoscopy?in?July?that?showed?diverticulosis,?presenting?with?left?lower?quadrant?discomfort?for?the?past?2?months.??Seems?to?be?associated?with?food?and?bowel?movements. No?rebound?tenderness. No?abdominal?wall?abnormalities?or?impulse?on?cough/Valsalva. No?blood?in?stools.??No?fevers?or?chills. Possible?smoldering/chronic?diverticulitis Possible?constipation Possible?functional?obstruction/ileus?though?less?likely Check?plain?abdominal?film Check?labs Will?give?him?a?course?metronidazole?and?prednisone If?not?improving,?he?can?follow-up?with?GI If?significantly?worsens?he?will?call?for?re-evaluation. Orders: Orders Comprehensive Met. Panel Today R10.9 - Unspecified abdominal pain XR KUB Today R10.9 - Unspecified abdominal pain CRP High Sensitivity Today R10.9 - Unspecified abdominal pain Complete Blood Count Auto Diff Today Z00.00 - Encounter for general adult medical examination without abnormal findings Erythrocyte Sedimentation Rate Today R10.9 - Unspecified abdominal pain Referrals Gastroenterology Referral R10.9 - Unspecified abdominal pain Medications: New metronidazole 500 mg PO Q12H 5 days 10 tabs 0RF Coding Level of Care Code Est Pt Level 3 (99584) Diagnoses Abdominal pain R10.9
[2023-05-14 08:28] VITALS: BP 108/64; PULSE 58; RESP 12; TEMP 37.1; O2SAT 99; BMI 22.8
== END 2023-05-14 09:12 | disposition home or self-care (01) ==
PROVIDERS: PCP Family Medicine; Visit Provider Family Medicine
DX: R10.9 Unspecified abdominal pain (principal)
CPT/HCPCS: 99213

== ENCOUNTER 2023-05-14 09:13 | Outpatient (REF) | payer OTHER, SELFPAY ==
[2023-05-14 11:39] LABS: MANUAL DIFF FLAG NO
[2023-05-14 11:51] LABS: Eosinophils Absolute Auto 0.3 X10*3/uL (0.0-0.4); Hematocrit 46.6 % (42.0-52.0); Hemoglobin 15.3 g/dl (14.0-18.0); Imm Gran Abs Auto 0.01 X10*3/uL (0.00-0.03); Imm Gran Pct Auto 0.2 % (0.0-0.4); Lymphocytes Absolute Auto 1.5 X10*3/uL (1.2-4.9); Lymphocytes Percent Auto 35.2 % (20-40); Mean Corpuscular HGB Conc 32.8 g/dl (31.0-36.0); Mean Corpuscular Hemoglobin 30.2 pg (27.0-33.0); Mean Corpuscular Volume 91.9 fL (80.0-98.0); Mean Platelet Volume 11.1 fL (9.4-12.4); Monocytes Absolute Auto 0.4 X10*3/uL (0.1-1.2); Monocytes Percent Auto 8.9 % (2-11); Neutrophils Percent Auto 48.7 % (45-73); Platelet Count 233 X10*3/uL (160-400); Red Blood Count 5.07 X10*6/uL (4.60-5.80); Red Cell Distribution Width 13.2 % (11.0-16.0); White Blood Count 4.2 X10*3/uL (4.8-10.8)
[2023-05-14 12:22] LABS: Prostate Specific Antigen Scr 0.26 ng/mL (<0.05-4.0)
[2023-05-14 12:27] LABS: Alanine Aminotransferase 22 U/L (0-40); Albumin Level 4.3 g/dL (3.5-5.0); Alkaline Phosphatase 66 U/L (39-117); Anion Gap 14 (12-20); Aspartate Amino Transferase 19 U/L (5-37); Bilirubin Total 0.4 mg/dL (0.0-1.0); Blood Urea Nitrogen 14 mg/dL (9-16); Calcium 9.7 mg/dL (8.4-10.2); Carbon Dioxide 27 mmol/L (22-29); Chloride 104 mmol/L (96-108); Cholesterol 168 mg/dL (<200); Estimated Glomerular Filt Rate > 60; Glucose Fasting 94 mg/dL (60-99); Glucose Random 94 mg/dL (60-115); HDL Cholesterol 49 mg/dL (>40); LDL Cholesterol Calculated 104 mg/dL (<100); Potassium 4.5 mmol/L (3.3-5.1); Sodium 140 mmol/L (135-145); Total Protein 7.3 g/dL (6.5-8.0); Triglycerides 78 mg/dL (<150)
[2023-05-14 12:31] LABS: TSH reflex Free T4 0.56 uIU/mL (0.32-4.0)
== END 2023-05-14 09:14 | disposition home or self-care (01) ==
LOC: HO.WFDLDS 09:13
PROVIDERS: Visit Provider Family Medicine
DX: Z00.00 Encounter for general adult medical examination without abnormal findings (principal); R10.9 Unspecified abdominal pain
CPT/HCPCS: 36415; 80053; 80061; 84153; 84443; 85025

== ENCOUNTER 2023-06-01 08:58 | Outpatient (REF) | payer OTHER, SELFPAY ==
--- NOTE | ~2023-06-01 | XR_ITS ---
EXAMINATION: XR ABDOMEN KUB CLINICAL INDICATION: Abdominal pain COMPARISON: None available. TECHNIQUE: AP view of the abdomen. FINDINGS: The bowel gas pattern is normal with no evidence of ileus or obstruction. No unusual soft tissue calcifications are noted. The bones are unremarkable. XR/XR KUB IMPRESSION: Unremarkable examination.
== END 2023-06-01 08:59 | disposition home or self-care (01) ==
LOC: HO.XRAY 08:58
PROVIDERS: PCP Family Medicine; Visit Provider Family Medicine
DX: R10.9 Unspecified abdominal pain (principal)
CPT/HCPCS: 74018

== ENCOUNTER 2023-06-03 15:19 | Outpatient (AMB) | payer OTHER, SELFPAY ==
--- NOTE | 2023-06-03 15:24 | MHC.OFFVIS ---
Intake Vital Signs 06/03/23 15:35 Height 5 ft 9 in Weight 159 lb 2.78 oz BMI 23.5 BP 123/86 Blood Pressure Location Rt brachial Position Sitting Pulse 66 Intake Visit Reasons: abdominal pain Intake Note: Patient presents to in office visit today for abdominal pain. CC: Patient c/o LLQ abdominal pain for a coupl months. Pain is constant, flax seed and psyllium husk seems to help per PT. He also reports having more loose stools than usual. Per Pt Dr. Stoddard ordered blood work and imaging and both have been done but he has not discussed results with PCP yet. 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 Otherwise, he tolerated the procedure well and his bowels have returned to normal after the procedure. I reviewed the results with him and he is quite agreeable to a 3 year follow-up. He says he does not have any first-degree relatives to inform but appreciates the information nevertheless. He seeks reassurance about his chances of developing colon cancer and I tell him that so long as he make sure he never goes more than 5 years without a colonoscopy this should be a completely prevent double illness. He feels better with this explanation. He is agreeable to a 3 year recall and he knows that we will put him on a list. If he moves out of the area will need to remember that we want to do this again in 3 years due to the size and number polyps. Overall he is quite satisfied with the service we provided. d Laboratory Tests 05/14/23 09:15 WBC 4.2 L Hgb 15.3 Hct 46.6 Plt Count 233 Estimated GFR > 60 Total Bilirubin 0.4 AST 19 ALT 22 Alkaline Phosphata se 66 TSH 0.56 KUB X-RAY: This is it is chart but has not been read by Radiology at [facility] Patient was seen in the past for only a screening colonoscopy and appears to be presenting today for a new complaint of abdominal pain. His primary care provider seem to feel it was diverticulitis in gave him a course of Flagyl and some prednisone. About 2 mos ago he started having abd pain in the LLQ. It was bad for a week, then he saw his PCP and he has been Trying to be more attentive to my diet. Now it is coming and going in severity but it is a bit better. He denies any blood or CIC, some looser stools. No fever/chills, no N/V. Denies any diet changes, new medications, He is educated about diverticulitis and possible foods that sometimes trigger some people in terms of seeds and nuts. He also has educated that sometimes there is some bowel irritability that persist after antibiotic treatment. At this point I suggest that we wait and watch and see how things resolved and if he has an acute exacerbation to call my office immediately and I will treat him presumptively with a antibiotics so that he does not have to go through and ER visit. 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 Current occupational exposures/hazards: No Cognitive needs: No Hearing needs: No Vision needs: No Review of Systems Const Denies fatigue, Denies fever(s), Denies night sweats, Denies poor appetite and Denies weight loss ENT Reports Normal hearing present, Denies dental pain, Denies dysphagia, Denies hearing loss, Denies mouth pain, Denies odynophagia, Denies throat swelling, Denies tongue swelling and Reports other (Dentition adequate) Card Reports no additional complaints Resp Reports no additional complaints GI Reports abdominal pain, Denies melena, Denies bloating, Denies hematochezia, Denies constipation, Reports GI cramping, Denies dysphagia, Denies excessive flatus, Denies early satiety, Denies heartburn, Reports diarrhea, Denies nausea, Denies odynophagia, Denies vomiting and Denies hematemesis Skin/Breast Denies pruritus, Denies lesions, Denies rash and Denies jaundice Neuro Reports Normal hearing present and Denies Abnormal speech present Endo Denies fatigue Aller/Immun Denies throat swelling and Denies tongue swelling Physical Exam Vital Signs: Last Vital Signs Pulse 66 06/03/23 15:35 BP 123/86 06/03/23 15:35 BMI result Body Mass Index 23.5 Const General: cooperative, no acute distress, well developed and well groomed Nutritional Appearance: average body habitus and well nourished Orientation/consciousness: oriented to person, oriented to place and oriented to time Limitations: No language barrier HEENT Head: Yes normocephalic and Yes atraumatic Eyes General: appearance normal, both eyes and all related structures Pupils: Equal, round and reactive pupils present Neck Neck: Yes normal visual inspection and Yes no lymphadenopathy Thyroid: Thyroid normal Resp Effort & Inspection: normal respiratory effort and able to speak in complete sentences Auscultation: clear to auscultation bilaterally Cardio Rate: regular rate Rhythm: regular rhythm Heart sounds: Normal, physiologic split S2 sound present Peripheral pulses: radial pulses present and posterior tibial pulses present GI Inspection: No distended and No Abdominal panniculus present Palpation (GI): Soft to palpation, nontender, no guarding, not rigid and No hepatosplenomegaly present Percussion: Yes normal to percussion Auscultation: normal bowel sounds Rectal Exam - Male: Yes deferred Skin General skin exam: no rashes or lesions noted, turgor normal, skin not dry, no jaundice, No spider nevi and no striae Rashes: no rashes Nails: normal Neuro General: oriented to person, oriented to place and oriented to time Cranial nerves: Yes Equal, round and reactive pupils present and Yes Normal hearing present Speech: No Abnormal speech present Extrem General: Yes normal to inspection, No clubbing, No cyanosis and No edema Psych Appearance: grossly normal and well kempt Mental Status: mental status grossly normal Speech and movement: Normal speech and movement present Affect: normal affect Attitude: cooperative Thought process: Normal thought process present and not confabulating Thought content: Normal thought content present Insight: Fair insight present (Psych) Judgement: Fair judgement present (Psych) Results Reviewed Results Reviewed: Laboratory Tests 05/14/23 09:15 WBC 4.2 L Hgb 15.3 Hct 46.6 Plt Count 233 Estimated GFR > 60 Total Bilirubin 0.4 AST 19 ALT 22 Alkaline Phosphatase 66 TSH 0.56 KUB X-RAY: This is it is chart but has not been read by Radiology at Assessment & Plan Assessment & Plan (1) Diverticulitis: Code(s): K57.92 - Diverticulitis of intestine, part unspecified, without perforation or abscess without bleeding Plan Patient was seen in the past for only a screening colonoscopy and appears to be presenting today for a new complaint of abdominal pain. His primary care provider seem to feel it was diverticulitis in gave him a course of Flagyl and some prednisone. About 2 mos ago he started having abd pain in the LLQ. It was bad for a week, then he saw his PCP and he has been Trying to be more attentive to my diet. Now it is coming and going in severity but it is a bit better. He denies any blood or CIC, some looser stools. No fever/chills, no N/V. Denies any diet changes, new medications, He is educated about diverticulitis and possible foods that sometimes trigger some people in terms of seeds and nuts. He also has educated that sometimes there is some bowel irritability that persist after antibiotic treatment. At this point I suggest that we wait and watch and see how things resolved and if he has an acute exacerbation to call my office immediately and I will treat him presumptively with a antibiotics so that he does not have to go through and ER visit. Return office visit in 4 weeks Medications: New amoxicillin-pot clavulanate 875-125 mg 1 tab PO BID 14 tabs 0RF K57.92 - Diverticulitis of intestine, part unspecified, without perforation or abscess without bleeding Coding Level of Care Code Est Pt Level 3 (93973) Diagnoses Diverticulitis K57.92
[2023-06-03 15:35] VITALS: BP 123/86; PULSE 66; BMI 23.5
== END 2023-06-03 16:01 | disposition home or self-care (01) ==
PROVIDERS: PCP Family Medicine; Visit Provider Nurse Practitioner
DX: K57.92 Diverticulitis of intestine, part unspecified, without perforation or abscess without bleeding (principal)
CPT/HCPCS: 99213

== ENCOUNTER → 2023-06-03 15:19 | Outpatient (BNVA) | payer OTHER, SELFPAY | PROVIDERS: PCP Family Medicine; Visit Provider Nurse Practitioner | DX: K57.92 Diverticulitis of intestine, part unspecified, without perforation or abscess without bleeding (principal) | CPT/HCPCS: 99212 ==

== ENCOUNTER 2023-07-01 15:38 | Outpatient (AMB) | payer OTHER, SELFPAY ==
[2023-07-01 15:46] VITALS: BP 120/71; PULSE 72; BMI 23.4
--- NOTE | 2023-07-01 15:46 | A.OFFVIS_ITS ---
Intake Vital Signs 07/01/23 15:46 Height 5 ft 9 in Weight 158 lb 4.67 oz BMI 23.4 BP 120/71 Blood Pressure Location Lt brachial Position Sitting Pulse 72 Intake Visit Reasons: 3 week follow up Intake Note: Patient presents to in office visit today for abdominal pain. CC: Patient reports he feels that LLQ abd pain has subsided but feels pressure when he needs to have a BM. Patient reports having loose stools. Denies other GI symptoms today. 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 His primary care provider seem to feel it was diverticulitis in gave him a course of Flagyl and some prednisone. About 2 mos ago he started having abd pain in the LLQ. It was bad for a week, then he saw his PCP and he has been Trying to be more attentive to my diet. Now it is coming and going in severity but it is a bit better. He denies any blood or CIC, some looser stools. No fever/chills, no N/V. Denies any diet changes, new medications, Assessment & Plan (1) Diverticulitis: Code(s): K57.92 - Diverticulitis of intestine, part unspecified, without perforation or abscess without bleeding Medications: New amoxicillin-pot cl avulanate 875-125 mg 1 tab PO BID 14 t abs 0RF K57.92 - Diverticu litis of intestine , part unspecified , without perforat ion or abscess wit hout bleeding [facility] He is definitely feeling better, no pain but still some pressure. His BM's are still loose, his baseline was normal and formed. WE discuss fiber, watch and wait and if worse he will call and will treat with double abx. ROV 6 weeks. 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 Current occupational exposures/hazards: No Cognitive needs: No Hearing needs: No Vision needs: No Review of Systems Const Denies fatigue, Denies fever(s), Denies night sweats, Denies poor appetite and Denies weight loss Eyes Details: glasses Reports requires corrective lenses ENT Reports Normal hearing present, Denies dental pain, Denies dysphagia, Denies hearing loss, Denies mouth pain, Denies odynophagia, Denies throat swelling, Denies tongue swelling and Reports other (Dentition adequate) Card Reports no additional complaints Resp Reports no additional complaints GI Denies abdominal pain, Denies melena, Denies bloating, Denies hematochezia, Denies constipation, Denies GI cramping, Denies dysphagia, Denies excessive flatus, Denies early satiety, Denies heartburn, Denies diarrhea, Denies nausea, Denies odynophagia, Denies vomiting and Denies hematemesis Skin/Breast Denies pruritus, Denies lesions, Denies rash and Denies jaundice Neuro Reports Normal hearing present and Denies Abnormal speech present Endo Denies fatigue Aller/Immun Denies throat swelling and Denies tongue swelling Physical Exam Vital Signs: Last Vital Signs Pulse 72 07/01/23 15:46 BP 120/71 07/01/23 15:46 BMI result Body Mass Index 23.4 Const General: cooperative, no acute distress, well developed and well groomed Nutritional Appearance: average body habitus and well nourished Orientation/consciousness: oriented to person, oriented to place and oriented to time Limitations: No language barrier HEENT Head: Yes normocephalic and Yes atraumatic Eyes General: appearance normal, both eyes and all related structures Pupils: Equal, round and reactive pupils present Neck Neck: Yes normal visual inspection and Yes no lymphadenopathy Thyroid: Thyroid normal Resp Effort & Inspection: normal respiratory effort and able to speak in complete sentences Auscultation: clear to auscultation bilaterally Cardio Rate: regular rate Rhythm: regular rhythm Heart sounds: Normal, physiologic split S2 sound present Peripheral pulses: radial pulses present and posterior tibial pulses present GI Inspection: No distended and No Abdominal panniculus present Palpation (GI): Soft to palpation, nontender, no guarding, not rigid and No hepatosplenomegaly present Percussion: Yes normal to percussion Auscultation: normal bowel sounds Rectal Exam - Male: Yes deferred Skin General skin exam: no rashes or lesions noted, turgor normal, skin not dry, no jaundice, No spider nevi and no striae Rashes: no rashes Nails: normal Neuro General: oriented to person, oriented to place and oriented to time Cranial nerves: Yes Equal, round and reactive pupils present and Yes Normal hearing present Speech: No Abnormal speech present Extrem General: Yes normal to inspection, No clubbing, No cyanosis and No edema Psych Appearance: grossly normal and well kempt Mental Status: mental status grossly normal Speech and movement: Normal speech and movement present Affect: normal affect Attitude: cooperative Thought process: Normal thought process present and not confabulating Thought content: Normal thought content present Insight: Fair insight present (Psych) Judgement: Fair judgement present (Psych) Assessment & Plan Assessment & Plan (1) Diverticulitis: Code(s): K57.92 - Diverticulitis of intestine, part unspecified, without perforation or abscess without bleeding (2) Abdominal pain: Code(s): R10.9 - Unspecified abdominal pain Plan He is definitely feeling better, no pain but still some pressure. His BM's are still loose, his baseline was normal and formed. WE discuss fiber, watch and wait and if worse he will call and will treat with double abx. ROV 6 weeks. Coding Level of Care Code Est Pt Level 3 (35464) Diagnoses Diverticulitis K57.92 Abdominal pain R10.9
== END 2023-07-01 16:22 | disposition home or self-care (01) ==
PROVIDERS: PCP Family Medicine; Visit Provider Nurse Practitioner
DX: K57.92 Diverticulitis of intestine, part unspecified, without perforation or abscess without bleeding (principal); R10.9 Unspecified abdominal pain
CPT/HCPCS: 99213

== ENCOUNTER → 2023-07-01 15:38 | Outpatient (BNVA) | payer OTHER, SELFPAY | PROVIDERS: PCP Family Medicine; Visit Provider Nurse Practitioner | DX: K57.92 Diverticulitis of intestine, part unspecified, without perforation or abscess without bleeding (principal); R10.9 Unspecified abdominal pain | CPT/HCPCS: 99212 ==

== ENCOUNTER 2023-07-04 09:06 | Outpatient (AMB) | payer OTHER, SELFPAY ==
[2023-07-04 09:15] VITALS: BP 102/76; PULSE 94; TEMP 36.9; O2SAT 95; BMI 22.4
--- NOTE | 2023-07-04 09:15 | MHC.OFFWIV ---
Intake Vital Signs 07/04/23 09:15 Height 5 ft 9 in Weight 152 lb BMI 22.4 BP 102/76 Blood Pressure Location Rt brachial Position Sitting Pulse 94 Pulse Source Pulse Oximeter Temp 98.5 F Temp Source Oral Pulse Oximetry (%) 95 Oxygen Delivery Method Room Air Intake Visit Reasons: EP, nausea after taking anti biotics Intake Note: Pt is here today c/o nausea, h/a and bodyaches due to the side affect to ABX Patient Tobacco Use Status: Never used Tobacco Allergies amoxicillin Allergy (Mild, Verified 07/10/23 16:10) nausea, body aches, headaches, vomiting, body acheses morphine Adverse Reaction (Intermediate, Verified 07/04/23 09:18) nausea, vomiting HPI EP, nausea after taking anti biotics HPI Details Patient is a 47 year male comes to the walk-in clinic complaining of headaches, body aches and nausea with vomiting after starting a prescription of amoxicillin for prophylaxis on July 02 after oral surgery. He said that that dentist had advised that he take Pepto-Bismol, which is not alleviating his symptoms. He has no blood in the stool or in his emesis. He has no fever chills, weakness or dizziness, malaise, respiratory symptoms, chest pain or shortness of breath, or other significant associated symptoms. States that this happened to him with a past prescription of amoxicillin. 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 Current occupational exposures/hazards: No Cognitive needs: No Hearing needs: No Vision needs: No Review of Systems Const All systems reviewed & are unremarkable except as noted in HPI and below Physical Exam Vital Signs: Last Vital Signs Temp 98.5 F 07/04/23 09:15 Pulse 94 07/04/23 09:15 BP 102/76 07/04/23 09:15 Pulse Ox 95 07/04/23 09:15 Oxygen Delivery Method Room Air 07/04/23 09:15 BMI result Body Mass Index 22.4 Const General: cooperative, healthy appearing, comfortable, no acute distress, alert, awake, Physically active and well groomed; No anxious, diaphoretic, ill appearing, intoxicated appearing, poor hygiene or tired appearing Nutritional Appearance: average body habitus Orientation/consciousness: oriented to person Limitations: no limitations Neck Neck: Yes normal visual inspection, Yes no lymphadenopathy, Yes trachea midline, Yes supple and No anterior neck swelling Resp Effort & Inspection: normal respiratory effort, able to speak in complete sentences, no audible wheezes, no cough, no grunting, not labored, no nasal flaring, no retractions and symmetric chest movement Auscultation: clear to auscultation bilaterally, no crackles, no rales, no rhonchi, no wheezes, lung sounds not diminished and No rub present Cardio Palpation: normal PMI Rate: regular rate Rhythm: regular rhythm Heart sounds: S1 normal heart sound present and S2 normal heart sound present GI Palpation (GI): Soft to palpation, not firm, nontender, no guarding, not rigid and No hepatosplenomegaly present Skin Other: Good color, warm and dry Neuro General: oriented to person Psych Appearance: grossly normal Mental Status: mental status grossly normal Speech and movement: Normal speech and movement present Affect: normal affect Attitude: cooperative Thought process: Normal thought process present Insight: Good insight present (Psych) Judgement: Good judgement present (Psych) Assessment & Plan Assessment & Plan (1) Medication side effects: Code(s): T88.7XXA - Unspecified adverse effect of drug or medicament, initial encounter Plan: Started patient on cefdinir and recommended that he not take amoxicillin again. He was agreeable with this plan. Also wrote him for Rufino for the nausea. He plans to call his dentist on Thursday, and he has appointment to follow-up with primary care in a few days, so he plans on getting labs done prior to that. He knows reach up sooner if symptoms persist or worsen in the meantime. Medications: New ondansetron 4 mg PO TID PRN 15 tabs 0RF nausea and vomiting 5 days cefdinir 300 mg PO BID 20 caps 0RF 10 days Coding Level of Care Code Est Pt Level 4 (76221) Diagnoses Medication side effects T88.7XXA
== END 2023-07-04 09:56 | disposition home or self-care (01) ==
PROVIDERS: PCP Family Medicine; Visit Provider Physician Assistant Medical
DX: T88.7XXA Unspecified adverse effect of drug or medicament, initial encounter (principal)
CPT/HCPCS: 99051; 99214

== ENCOUNTER 2023-07-10 15:55 | Outpatient (AMB) | payer OTHER, SELFPAY ==
[2023-07-10 16:07] VITALS: BP 120/64; PULSE 78; O2SAT 97; BMI 22.8
--- NOTE | 2023-07-10 16:07 | MHC.PC.OV ---
Vital Signs 07/10/23 16:07 Height 5 ft 9 in Weight 154 lb 2 oz BMI 22.8 BP 120/64 Blood Pressure Location Lt brachial Position Sitting Pulse 78 Pulse Source Pulse Oximeter Pulse Oximetry (%) 97 Oxygen Delivery Method Room Air Intake Visit Reasons: Extended exam with f/u labs and health maintenance Intake Note: Patient is here for extended exam and follow up labs, and today has a concern of a knot in his back for 5 days. Allergies amoxicillin Allergy (Mild, Verified 07/10/23 16:10) nausea, body aches, headaches, vomiting, body acheses morphine Adverse Reaction (Intermediate, Verified 07/04/23 09:18) nausea, vomiting Tobacco use date assessed: 07/10/23 HPI Extended exam with f/u labs and health maintenance HPI Details 47 y/o male presents for an extended exam with f/u labs and health maintenance. Labs were drawn 05/14/23. Reviewed labs with pt. Triglyceries 78. TC 168. LDL 104. HDL 49. He is on artovastatin 20mg daily. His labs were fine. Pt has complaints of upper back pain. Pt continues to eat a healthy diet. 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 Terry Zacarias, July Sepulveda, Kev Ling and colleagues, with an educational lincoln from [employer]. Review of Systems Const Denies chills, Denies fatigue, Denies fever(s), Denies headache(s) and Denies weakness Eyes Denies change in vision ENT Denies dizziness, Denies headache(s), Denies hearing loss, Denies nasal congestion, Denies sinus pain, Denies sinus pressure and Denies sore throat Card Denies chest pain, Denies lightheadedness, Denies dyspnea and Denies other (palpitations) Resp Denies cough, Denies dyspnea and Denies wheezing GI Denies abdominal pain, Denies melena, Denies hematochezia, Denies change in bowel habits, Denies dyspepsia and Denies nausea Denies hematuria and Denies dysuria Musc Denies abnormal gait, Denies myalgias, Denies arthralgias, Denies numbness and Denies tingling Skin/Breast Denies rash, Denies unusual bruising and Denies wounds Neuro Denies abnormal gait, Denies dizziness, Denies headache(s), Denies memory loss, Denies numbness, Denies Sensory deficit (Neuro), Denies tingling and Denies weakness Psych Denies anxiety, Denies depression and Denies memory loss Endo Denies cold intolerance, Denies fatigue, Denies heat intolerance, Denies polydipsia and Denies polyuria Stevan/Lymph Denies easy bleeding and Denies easy bruising Aller/Immun Denies wheezing Physical exam (Primary Care) Vital Signs: Last Vital Signs Pulse 78 07/10/23 16:07 BP 120/64 07/10/23 16:07 Pulse Ox 97 07/10/23 16:07 Oxygen Delivery Method Room Air 07/10/23 16:07 BMI result Body Mass Index 22.8 Tobacco/Smoking Status: Tobacco use Status Tobacco use date assessed 07/10/23 07/10/23 16:11 Patient Tobacco Use Status Never used Tobacco 07/10/23 16:11 e-Cigarette/Vaping Use Never Used 07/10/23 16:11 Thrive Assessment: Date of Thrive Assessment Date Thrive assessed 08/21/22 07/10/23 16:11 Const General: no acute distress, well developed, alert and awake Nutritional Appearance: well nourished Orientation/consciousness: patient oriented x3 HENMT Head: Yes normocephalic and Yes atraumatic Ears: hearing grossly normal bilaterally and TM's normal bilaterally General nose exam: Normal external nose present and Normal nares present Mouth: Normal oral and palatal mucosa present and moist mucous membranes Teeth and gingiva: dentition normal Throat: Yes posterior oropharynx normal Eyes General: appearance normal, both eyes and all related structures Pupils: Equal, round and reactive pupils present and Pupil accommodation reflex normal EOM: EOMs intact bilaterally Neck Neck: Yes normal visual inspection, Yes no lymphadenopathy and Yes trachea midline Thyroid: Thyroid normal Carotids: no bruits Lymphatic: no lymphadenopathy noted Chest Chest palpation & inspection: normal inspection of the chest Resp Effort & Inspection: normal respiratory effort Auscultation: clear to auscultation bilaterally Cardio Rate: regular rate Rhythm: regular rhythm Heart sounds: S1 normal heart sound present, S2 normal heart sound present, no gallops, no murmurs and no rubs Bruits: no abdominal aortic bruits and no carotid bruits GI Palpation (GI): No Abdominal aortic bruit present, Soft to palpation, nontender, No hepatosplenomegaly present and No Rebound tenderness present Auscultation: normal bowel sounds General: Yes no CVA tenderness Back/Spine/Pelvis Back: no CVA tenderness Cervical Spine: cervical ROM normal and No Cervical spine tenderness Thoracic/Lumbar Spine: thoraco-lumbar ROM normal, No pain with thoraco-lumbar ROM, No thoracic spinal tenderness and No lumbar spinal tenderness Skin Lesions: no lesions Rashes: no rashes Trauma: no lacerations or abrasions Wounds: no wounds Nails: normal Neuro General: patient oriented x3 Cranial nerves: Yes Equal, round and reactive pupils present Cognition (Neuro): normal cognition Gait exam (Neuro): Normal gait present Motor exam (neuro): 5/5 motor strength present throughout Sensory Exam: No Sensory deficit (Neuro) Deep tendon reflexes (DTR's): Right patellar reflex intensity grade: 2+ and Left patellar reflex intensity grade: 2+ Extrem General: Yes normal to inspection and No edema Psych Appearance: grossly normal Affect: normal affect Attitude: cooperative Thought process: Normal thought process present Assessment and Plan Assessment & Plan (1) Diverticulitis: Code(s): K57.92 - Diverticulitis of intestine, part unspecified, without perforation or abscess without bleeding Plan: No?significant?abdominal?pain. He?is?hydrating?well?and?watching?his?diet Follow-up?with?GI?as?recommended?and?he?make?an?acute?visit?here?if?he?has?a?flare-up?and?can?not?get?in?to?see?GI (2) Hyperlipidemia: Code(s): E78.5 - Hyperlipidemia, unspecified Plan: Well?controlled Continue?current?medication (3) Abdominal pain: Code(s): R10.9 - Unspecified abdominal pain Plan: As?above Stable (4) Upper back pain: Code(s): M54.9 - Dorsalgia, unspecified Plan: Left?subscapularis?strain Recommended?ice/heat, relative?rest?and?then demonstrated?exercises?he?can?try If?not?improving?he?will?let?me?know?and?I?will?refer?him?for?physical?therapy (5) Screening for colon cancer: Code(s): Z12.11 - Encounter for screening for malignant neoplasm of colon Plan: Follow-up?with?Gastroenterology?as?recommended (6) Screening for prostate cancer: Code(s): Z12.5 - Encounter for screening for malignant neoplasm of prostate Plan: PSA?was?within?normal?limits (7) Adult general medical exam: Code(s): Z00.00 - Encounter for general adult medical examination without abnormal findings Plan: 47-year-old?male?presents?for?an?extended?exam Encouraged?healthy?diet?with?active?lifestyle?and?exercise. Orders: Orders Microalbumin, Random (w Creat) 11 Months I10 - Essential (primary) hypertension Comprehensive [place]. Panel Fast 11 Months Z00.00 - Encounter for general adult medical examination without abnormal findings Lipid Panel 11 Months Z00.00 - Encounter for general adult medical examination without abnormal findings Prostate Specific Antigen Scr 11 Months Z12.5 - Encounter for screening for malignant neoplasm of prostate UA and rflx microscopic 11 Months Z00.00 - Encounter for general adult medical examination without abnormal findings TSH reflex Free T4 11 Months Z00.00 - Encounter for general adult medical examination without abnormal findings Coding Level of Care Code Est Pt Level 4 (64084) Diagnoses Diverticulitis K57.92 Hyperlipidemia E78.5 Abdominal pain R10.9 Upper back pain M54.9 Screening for colon cancer Z12.11 Screening for prostate cancer Z12.5 Adult general medical exam Z00.00
== END 2023-07-10 16:38 | disposition home or self-care (01) ==
PROVIDERS: PCP Family Medicine; Visit Provider Family Medicine
DX: Z00.00 Encounter for general adult medical examination without abnormal findings (principal); K57.92 Diverticulitis of intestine, part unspecified, without perforation or abscess without bleeding; E78.5 Hyperlipidemia, unspecified; R10.9 Unspecified abdominal pain; M54.9 Dorsalgia, unspecified
CPT/HCPCS: 99396

== ENCOUNTER 2023-08-07 09:24 | Outpatient (AMB) | payer OTHER, SELFPAY ==
[2023-08-07 09:51] VITALS: BP 122/70; PULSE 61; RESP 16; O2SAT 99; BMI 23.6
--- NOTE | 2023-08-07 09:51 | MHC.PC.OV ---
Vital Signs 08/07/23 09:51 Height 5 ft 9 in Weight 160 lb 2 oz BMI 23.6 BP 122/70 Blood Pressure Location Lt brachial Position Sitting Respiration 16 Pulse 61 Pulse Source Pulse Oximeter Pulse Oximetry (%) 99 Oxygen Delivery Method Room Air Intake Visit Reasons: back pain Intake Note: Patient is here with back pain, looking for referral to Stevie Ohara, head of Neurosurgery, and would like CT scan. Allergies amoxicillin Allergy (Mild, Verified 08/07/23 09:53) nausea, body aches, headaches, vomiting, body acheses morphine Adverse Reaction (Intermediate, Verified 08/07/23 09:53) nausea, vomiting Tobacco use date assessed: 08/07/23 HPI back pain HPI Details 47 y/o male presents with complaints of back pain. Pt reports he would like a referral to Stevie Ohara, Neurosurgery. Pt reports he has had a MRI about a year and a half ago. He notes he has trialed PT about over a year ago and states he did not see much relief from this. Pt reports he has been using gabapentin at night which has been helping. Also?using?some?ibuprofen Pain?at?low?back?and?radiates?into?his?thighs Pain?gets?severe?enough?to?make?walking?difficult No?loss?of?bowel?or?bladder?function [facility] Medical History Bilateral hip pain GERD (gastroesophageal reflux disease) Lumbar spondylosis Elevated cholesterol Depression Anxiety Surgical History H/O colonoscopy H/O right knee surgery Social History Housing: House Alcohol intake: current Alcohol intake frequency: 0-2 drinks per day Alcohol type: beer Patient Tobacco Use Status: Never used Tobacco e-Cigarette/Vaping Use: Never Used Second Hand Smoke Exposure: No service: No Current occupational status: employed 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 Terry Zacarias, July Sepulveda, Kev Ling and colleagues, with an educational lincoln from [employer]. Review of Systems Const Denies chills, Denies fatigue, Denies fever(s), Denies headache(s) and Denies weakness ENT Denies dizziness and Denies headache(s) Card Denies dyspnea Resp Denies cough, Denies dyspnea, Denies wheezing and Denies other (shortness of breath) Musc Reports back pain, Denies numbness and Denies tingling Neuro Denies dizziness, Denies headache(s), Denies numbness, Denies tingling and Denies weakness Psych Denies anxiety and Denies depression Endo Denies fatigue Aller/Immun Denies wheezing Physical exam (Primary Care) Vital Signs: Last Vital Signs Pulse 61 08/07/23 09:51 Resp 16 08/07/23 09:51 BP 122/70 08/07/23 09:51 Pulse Ox 99 08/07/23 09:51 Oxygen Delivery Method Room Air 08/07/23 09:51 BMI result Body Mass Index 23.6 Tobacco/Smoking Status: Tobacco use Status Tobacco use date assessed 08/07/23 08/07/23 09:58 Patient Tobacco Use Status Never used Tobacco 08/07/23 09:58 e-Cigarette/Vaping Use Never Used 08/07/23 09:58 Thrive Assessment: Date of Thrive Assessment Date Thrive assessed 08/21/22 08/07/23 09:58 Const General: well developed; No acute distress Nutritional Appearance: well nourished Orientation/consciousness: [facility] x[facility]: Yes normocephalic and Yes atraumatic Eyes General: appearance normal, both eyes and all related structures Pupils: Equal, round and reactive pupils present EOM: EOMs intact bilaterally Resp Effort & Inspection: normal respiratory effort Neuro General: patient oriented x3 and gait normal Cranial nerves: Yes Equal, round and reactive pupils present Psych Affect: normal affect Assessment and Plan Assessment & Plan (1) Lumbar radiculopathy: Code(s): M54.16 - Radiculopathy, lumbar region Plan: Severe?low?back?pain?which?can?affect?walking.??This?radiates?down?into?buttocks?and?thighs. History?of?spondylolisthesis?at?L5-S1?and?pars?defect. Will?check?x-ray?and?also?send?patient?for?MRI He?is?had?physical?therapy?which?did?not?help?much.??He?is?followed?by?pain?management?and?has?had?start?injections?which?helped?partially. Will?follow-up?in?a?week?to?review?x-ray?with?patient?and?see?if?we?need?additional?imaging?such?as?CT?scan?for?fractures. Patient?had?spoken?with??Oh's?office?and?they?recommended?CT?scan?if?there?is?a?fracture.??They?will?need?an?MRI?ultimately. He?can?use?ibuprofen?and?gabapentin?as?well?as?ice?and?heat (2) Low back pain: Code(s): M54.50 - Low back pain, unspecified Plan: As?above Orders: Orders MR lumbar spine wo con Today M54.16 - Radiculopathy, lumbar region XR lumbar spine 2-3V Today M54.50 - Low back pain, unspecified Coding Level of Care Code Est Pt Level 3 (01963) Diagnoses Lumbar radiculopathy M54.16 Low back pain M54.50
== END 2023-08-07 11:44 | disposition home or self-care (01) ==
PROVIDERS: PCP Family Medicine; Visit Provider Family Medicine
DX: M54.16 Radiculopathy, lumbar region (principal); M54.50 Low back pain, unspecified
CPT/HCPCS: 99213

== ENCOUNTER 2023-08-07 11:12 | Outpatient (REF) | payer OTHER, SELFPAY ==
--- NOTE | ~2023-08-07 | XR_ITS ---
EXAMINATION: XR LUMBOSACRAL SPINE CLINICAL INFORMATION: Low back pain COMPARISON: 10/01/2021 TECHNIQUE: Three views of the lumbosacral spine. FINDINGS: There are 5 not ribs bearing vertebral bodies. There is stable grade 1 anterior listhesis of L5 over S1 and narrowing of L5-S1 intervertebral disc space. There is bilateral pars defect at the level of L5-S1. Pedicles are otherwise are preserved. There is no fractures or subluxations. There is mild wedge-shaped deformity of T12 vertebral body with marginal spurring, most likely chronic XR/XR lumbar spine 2-3V IMPRESSION: Chronic changes at the level of L5-S1 with grade 1 anterolisthesis of L5 over S1 and narrowing of L5-S1 intervertebral disc space.
== END 2023-08-07 11:13 | disposition home or self-care (01) ==
LOC: HO.XRAY 11:12
PROVIDERS: PCP Family Medicine; Visit Provider Family Medicine
DX: M54.50 Low back pain, unspecified (principal)
CPT/HCPCS: 72100

== ENCOUNTER 2023-08-12 15:48 | Outpatient (AMB) | payer OTHER, SELFPAY ==
--- NOTE | 2023-08-12 15:55 | MHC.OFFVIS ---
Intake Vital Signs 08/12/23 15:57 Height 5 ft 9 in Weight 157 lb 13.616 oz BMI 23.3 BP 119/69 Blood Pressure Location Lt brachial Position Sitting Pulse 64 Intake Visit Reasons: 6 week follow up Intake Note: Patient presents to in office visit today in 6 weeks follow up of diverticulosis. CC: Patient reports he feels well about the same. Denies other GI symptoms today. 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 His [facility] care provider seem to feel it w as diverticulitis in gave him a cour se of Flagyl and s ome prednisone. A bout 2 mos ago he started having abd pain in the zLLQ. It was bad for a week, then he saw his PCP and he has been Trying to b e more attentive t o my diet. NOw it is coming and goi ng in severity but it is a bit santi r. He denies any b lood or CIC, some looser stools. No fever/chills, no N /V. Denies any t changes, new med ications, Ass essment & Plan (1 ) Diverticulitis: Code(s): K57 .92 - Diverticulit is of intestine, p art unspecified, w ithout perforation or abscess withou t bleeding M edications: New a moxicillin-pot cl avulanate 875-125 mg 1 tab PO BID 1 4 t abs 0RF K57.92 - D iverticu litis of intestine , part unspecified , without per forat ion or a bscess wit mary t bleeding He is definitely feeling better, no pain b ut still some pres sure. His BM's are still loose, his baseline was ludin l and formed. WE d iscuss fiber, watc h and wait and if worse he will call and will treat wi th double abx. R OV 6 weeks. A ssessment & Plan (1) Diverticulitis : Code(s): K57.92 - Diverticu litis of intestine , part unspecified , without perforat ion or abscess wit hout bleeding (2) Abdominal pain: Code(s): R10 .9 - Unspecified a bdominal pain TODAY'S VISIT He has not had any pain, but is still quite aware of his bowels. He is taking metamucil, but CIC was not a prior problem. Will give empiric bactrim and flagyl for self tx if sx recur. ROV 6 mos. 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 Current occupational exposures/hazards: No Cognitive needs: No Hearing needs: No Vision needs: No Review of Systems Const Denies fatigue, Denies fever(s), Denies night sweats, Denies poor appetite and Denies weight loss Eyes Details: glasses Reports requires corrective lenses ENT Reports Normal hearing present, Denies dental pain, Denies dysphagia, Denies hearing loss, Denies mouth pain, Denies odynophagia, Denies throat swelling, Denies tongue swelling and Reports other (Dentition adequate) Card Reports no additional complaints Resp Reports no additional complaints GI Denies abdominal pain, Denies melena, Denies bloating, Denies hematochezia, Denies constipation, Denies GI cramping, Denies dysphagia, Denies excessive flatus, Denies early satiety, Denies heartburn, Denies diarrhea, Denies nausea, Denies odynophagia, Denies vomiting and Denies hematemesis Skin/Breast Denies pruritus, Denies lesions, Denies rash and Denies jaundice Neuro Reports Normal hearing present and Denies Abnormal speech present Endo Denies fatigue Aller/Immun Denies throat swelling and Denies tongue swelling Physical Exam Vital Signs: Last Vital Signs Pulse 64 08/12/23 15:57 BP 119/69 08/12/23 15:57 BMI result Body Mass Index 23.3 Const General: cooperative, no acute distress, well developed and well groomed Nutritional Appearance: average body habitus and well nourished Orientation/consciousness: oriented to person, oriented to place and oriented to time Limitations: No language barrier HEENT Head: Yes normocephalic and Yes atraumatic Eyes General: appearance normal, both eyes and all related structures Pupils: Equal, round and reactive pupils present Neck Neck: Yes normal visual inspection and Yes no lymphadenopathy Thyroid: Thyroid normal Resp Effort & Inspection: normal respiratory effort and able to speak in complete sentences Auscultation: clear to auscultation bilaterally Cardio Rate: regular rate Rhythm: regular rhythm Heart sounds: Normal, physiologic split S2 sound present Peripheral pulses: radial pulses present and posterior tibial pulses present GI Inspection: No distended and No Abdominal panniculus present Palpation (GI): Soft to palpation, nontender, no guarding, not rigid and No hepatosplenomegaly present Percussion: Yes normal to percussion Auscultation: normal bowel sounds Rectal Exam - Male: Yes deferred Skin General skin exam: no rashes or lesions noted, turgor normal, skin not dry, no jaundice, No spider nevi and no striae Rashes: no rashes Nails: normal Neuro General: oriented to person, oriented to place and oriented to time Cranial nerves: Yes Equal, round and reactive pupils present and Yes Normal hearing present Speech: No Abnormal speech present Extrem General: Yes normal to inspection, No clubbing, No cyanosis and No edema Psych Appearance: grossly normal and well kempt Mental Status: mental status grossly normal Speech and movement: Normal speech and movement present Affect: normal affect Attitude: cooperative Thought process: Normal thought process present and not confabulating Thought content: Normal thought content present Insight: Good insight present (Psych) Judgement: Good judgement present (Psych) Assessment & Plan Assessment & Plan (1) Diverticulitis: Code(s): K57.92 - Diverticulitis of intestine, part unspecified, without perforation or abscess without bleeding Plan He has not had any pain, but is still quite aware of his bowels. He is taking metamucil, but CIC was not a prior problem. Will give empiric bactrim and flagyl for self tx if sx recur. ROV 6 mos. Medications: New sulfamethoxazole-trimethoprim 800-160 mg (Bactrim DS) 1 tab PO BID 10 days 20 tabs 0RF K57.92 - Diverticulitis of intestine, part unspecified, without perforation or abscess without bleeding metronidazole 500 mg PO TID 10 days 30 tabs 0RF Coding Level of Care Code Est Pt Level 3 (81916) Diagnoses Diverticulitis K57.92
[2023-08-12 15:57] VITALS: BP 119/69; PULSE 64; BMI 23.3
== END 2023-08-12 16:24 | disposition home or self-care (01) ==
PROVIDERS: PCP Family Medicine; Visit Provider Nurse Practitioner
DX: K57.92 Diverticulitis of intestine, part unspecified, without perforation or abscess without bleeding (principal)
CPT/HCPCS: 99213

== ENCOUNTER → 2023-08-12 15:48 | Outpatient (BNVA) | payer OTHER, SELFPAY | PROVIDERS: PCP Family Medicine; Visit Provider Nurse Practitioner | DX: K57.92 Diverticulitis of intestine, part unspecified, without perforation or abscess without bleeding (principal) | CPT/HCPCS: 99212 ==

== ENCOUNTER 2023-08-13 16:37 | Outpatient (AMB) | payer OTHER, SELFPAY ==
--- NOTE | 2023-08-13 16:35 | A.OFFPC_ITS ---
Intake Visit Reasons: f/u x-ray Intake Note: Patient reports he has no concerns at this time. 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 Lumbar spine x-ray 08/07/23 shows chronic changes at the level of L5-S1 with grade 1 anterolisthesis of L5 over S1 and narrowing of L5-S1 intervertebral disc space. 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 Terry Zacarias, July Sepulveda, Kev Ling and colleagues, with an educational lincoln from [employer]. Review of Systems Const Denies chills, Denies fatigue, Denies fever(s), Denies headache(s) and Denies weakness ENT Denies dizziness and Denies headache(s) Card Denies dyspnea Resp Denies cough, Denies dyspnea, Denies wheezing and Denies other (shortness of b reath) Musc Denies numbness and Denies tingling Neuro Denies dizziness, Denies headache(s), Denies numbness, Denies tingling and Denies weakness Psych Denies anxiety and Denies depression Endo Denies fatigue Aller/Immun Denies wheezing Physical exam (Primary Care) Tobacco/Smoking Status: Tobacco use Status Tobacco use date assessed 08/07/23 08/13/23 16:37 Patient Tobacco Use Status Never used Tobacco 08/13/23 16:37 e-Cigarette/Vaping Use Never Used 08/13/23 16:37 Thrive Assessment: Date of Thrive Assessment Date Thrive assessed 08/21/22 08/13/23 16:37 Telehealth Telehealth Location of provider rendering services: practice address Location of patient: other (In his car) Patient Identification confirmed using: Name, : Yes Telehealth method: voice only Patient verbally consented to treatment: Yes Patient verbally consented to billing insurance company: Yes Patient informed of any privacy concerns related to visit: Yes Minutes spent on Phone/Video with Pt.: 1 Assessment and Plan Assessment & Plan (1) Lumbar radiculopathy: Code(s): M54.16 - Radiculopathy, lumbar region Plan: Lumbar?plain?film?showed?anterolisthesis?of?L5?over?S1?with?disc?narrowing?of?L5 -S1. Patient?has?lumbar?radiculopathy?with?radiation?into?his?legs Ordering?MRI?to?evaluate?further. The?patient?had?already?contacted??Oh's office?and?they?will?require?MRI He?has?already?had?physical?therapy?which?did?not?help?much We?can?follow-up?after?MRI?and?make?referral. Orders: Orders MR lumbar spine wo con Today M54.16 - Radiculopathy, lumbar region, M54.50 - Low back pain, unspecified Coding Level of Care Code Tele Est Pt Level 2 (71368) Diagnoses Lumbar radiculopathy M54.16
== END 2023-08-13 16:45 | disposition home or self-care (01) ==
PROVIDERS: PCP Family Medicine; Visit Provider Family Medicine
DX: M54.16 Radiculopathy, lumbar region (principal)
CPT/HCPCS: 99212

== ENCOUNTER 2023-09-11 09:35 | Outpatient (AMB) | payer OTHER, SELFPAY ==
[2023-09-11 09:47] VITALS: BP 120/77; PULSE 71; O2SAT 97; BMI 24.1
--- NOTE | 2023-09-11 09:47 | MHC.PC.OV ---
Vital Signs 09/11/23 09:47 Height 5 ft 9 in Weight 163 lb BMI 24.1 BP 120/77 Blood Pressure Location Lt brachial Position Sitting Pulse 71 Pulse Source Pulse Oximeter Pulse Oximetry (%) 97 Oxygen Delivery Method Room Air Intake Visit Reasons: follow up re eval Intake Note: Patient is here for reeval of MRI. Allergies amoxicillin Allergy (Mild, Verified 09/11/23 09:50) nausea, body aches, headaches, vomiting, body acheses morphine Adverse Reaction (Intermediate, Verified 09/11/23 09:50) nausea, vomiting Tobacco use date assessed: 08/07/23 HPI follow up re eval HPI Details 48 y/o male presents to f/u MRI for lumbar radiculopathy. Patient?presents?to?discuss?insurance?denial?of?order?for?MRI?of?lumbar?spine. We?reviewed?patient's?history?regarding?low?back?pain?and?lumbar?radiculopathy. Lumbar plain film showed anterolisthesis of L5 over S1 with disc narrowing of L5-S1. 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 Pain noted in L5 region Since B/L hip L>R and now Low back & Hips and radiates francy thighs w/ numbness Testicular pain & urologist stated related to back issues Has used Gabapentin, Ibuprofen PT x 6 weeks november/december 2020 Cortisone injections x 2 starting Sep 2022, help w/ pain but not mobility/flexibility PFSH Medical History Bilateral hip pain GERD (gastroesophageal reflux disease) Lumbar spondylosis Elevated cholesterol Depression Anxiety Surgical History H/O colonoscopy H/O right knee surgery Social History Housing: House Alcohol intake: current Alcohol intake frequency: 0-2 drinks per day Alcohol type: beer Patient Tobacco Use Status: Never used Tobacco e-Cigarette/Vaping Use: Never Used Second Hand Smoke Exposure: No service: No Current occupational status: employed 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 Terry Zacarias, July Sepulveda, Kev Ling and colleagues, with an educational lincoln from [employer]. Review of Systems Const Denies chills, Denies fatigue, Denies fever(s), Denies headache(s) and Denies weakness ENT Denies dizziness and Denies headache(s) Card Denies dyspnea Resp Denies cough, Denies dyspnea, Denies wheezing and Denies other (shortness of breath) Musc Denies numbness and Denies tingling Neuro Denies dizziness, Denies headache(s), Denies numbness, Denies tingling and Denies weakness Psych Denies anxiety and Denies depression Endo Denies fatigue Aller/Immun Denies wheezing Physical exam (Primary Care) Vital Signs: Last Vital Signs Pulse 71 09/11/23 09:47 BP 120/77 09/11/23 09:47 Pulse Ox 97 09/11/23 09:47 Oxygen Delivery Method Room Air 09/11/23 09:47 BMI result Body Mass Index 24.1 Tobacco/Smoking Status: Tobacco use Status Tobacco use date assessed 08/07/23 09/11/23 09:54 Patient Tobacco Use Status Never used Tobacco 09/11/23 09:54 e-Cigarette/Vaping Use Never Used 09/11/23 09:54 Thrive Assessment: Date of Thrive Assessment Date Thrive assessed 08/21/22 09/11/23 09:54 Const General: well developed; No acute distress Nutritional Appearance: well nourished Orientation/consciousness: patient oriented x3 [facility] Head: Yes normocephalic and Yes atraumatic Eyes General: appearance normal, both eyes and all related structures Pupils: Equal, round and reactive pupils present EOM: EOMs intact bilaterally Resp Effort & Inspection: normal respiratory effort Back/Spine/Pelvis Other: Low back pain radiating into b/L hips and wrapping to anterolateral thighs and to the knees Neuro General: patient oriented x3 and gait normal Cranial nerves: Yes Equal, round and reactive pupils present Psych Affect: normal affect Assessment and Plan Assessment & Plan (1) Lumbar radiculopathy: Code(s): M54.16 - Radiculopathy, lumbar region Plan: As?above,?reviewed?history?of?patient's?low?back?pain?and?radiculopathy. I?have?generated?a?letter?regarding?this See?letter. Coding Level of Care Code Est Pt Level 4 (65129) Diagnoses Lumbar radiculopathy M54.16
== END 2023-09-11 11:13 | disposition home or self-care (01) ==
PROVIDERS: PCP Family Medicine; Visit Provider Family Medicine
DX: M54.16 Radiculopathy, lumbar region (principal)
CPT/HCPCS: 99215

== ENCOUNTER 2023-11-05 18:47 | Outpatient (REF) | payer OTHER, SELFPAY ==
--- NOTE | ~2023-11-05 | MR_ITS ---
MRI OF THE LUMBAR SPINE WITHOUT CONTRAST CLINICAL INFORMATION: Lumbar region radiculopathy. COMPARISON: Lumbar spine radiographs 08/07/2023.. TECHNIQUE: Multiplanar multisequence MR imaging of the lumbar spine obtained without contrast. FINDINGS: There is grade 2 spondylolytic anterolisthesis of L5 on S1 in the setting of chronic bilateral L5 pars defects. Grade 1 retrolisthesis of L3 on L4 and L4 on L5. There are Modic type I endplate signal changes at L5-S1. No additional bone marrow edema. No acute fractures. Chronic vertebral body height loss at T12 and L5. Multilevel endplate osteophytes. There is moderate disc volume loss at L5-S1 and there is mild disc volume loss at L3-L4 and L4-L5 with disc desiccation at all these levels. Conus terminates at the T12 level. No significant extraspinal soft tissue findings. The L1-L2 and the L2-L3 disc contours are normal. There is no central canal stenosis and there is no foraminal stenosis at these levels. L3-L4: Grade 1 retrolisthesis. Diffuse annular disc bulge and mild bilateral facet arthropathy. No central canal stenosis and no foraminal stenosis. Ventral annular fissure. L4-L5: Grade 1 retrolisthesis. Diffuse annular disc bulge and moderate bilateral hypertrophic facet arthropathy. No central canal stenosis. Mild foraminal encroachment bilaterally. L5-S1: Grade 2 spondylolytic anterolisthesis in the setting of chronic bilateral L5 pars defects that along with uncovered disc osteophyte results in severe bilateral foraminal stenosis with compression of the exiting L5 nerve roots bilaterally. A 4 mm synovial cyst along the medial margin of the degenerative right facet joint results in mass effect on the traversing right S1 nerve root within the right subarticular zone. No central canal stenosis. MR/MR lumbar spine wo con IMPRESSION: At L5-S1, grade 2 spondylolytic anterolisthesis in the setting of chronic bilateral L5 pars defects and uncovered disc osteophyte results in severe bilateral foraminal stenosis with compression of the exiting L5 nerve roots bilaterally. A 4 mm synovial cyst along the medial margin of the degenerative right facet joint at L5-S1 results in mass effect on the traversing right S1 nerve root within the right subarticular zone. No central canal stenosis. Modic type I endplate signal changes at L5-S1.
== END 2023-11-05 18:48 | disposition home or self-care (01) ==
LOC: HO.MRI 18:47
PROVIDERS: PCP Family Medicine; Visit Provider Family Medicine
DX: M54.16 Radiculopathy, lumbar region (principal); M54.50 Low back pain, unspecified
CPT/HCPCS: 72148

== ENCOUNTER → 2023-11-24 13:39 | Outpatient (AMB) | payer OTHER, SELFPAY ==
--- NOTE | 2023-11-24 13:37 | A.OFFPC_ITS ---
Intake Visit Reasons: MRI Results Intake Note: Patient would like to go over MRI results. Mysql Developer Required: No Accompanied by: Self / Same As Patient Allergies amoxicillin Allergy (Mild, Verified 11/24/23 13:38) nausea, body aches, headaches, vomiting, body acheses morphine Adverse Reaction (Intermediate, Verified 11/24/23 13:38) nausea, vomiting Tobacco use date assessed: 11/18/23 Dental Screening Dental Screen Date: 11/18/23 HPI MRI Results HPI Details 48 y/o male presents to discuss MRI resu lts for lumbar radiculopathy via telemedicine. Per lumbar spine MRI note: At L5-S1, grade 2 spondylolytic anterolisthesis in the setting of chronic bilateral L5 pars defects and uncovered disc osteophyte results in severe bilateral foraminal stenosis with compression of the exiting L5 nerve roots bilaterally. A 4 mm synovial cyst along the medial margin of the degenerative right facet joint at L5-S1 results in mass effect on the traversing right S1 nerve root within the right subarticular zone. No central canal stenosis. Modic type I endplate signal changes at L5-S1. 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 Terry Zacarias, July Sepulveda, Kev Ling and colleagues, with an educational lincoln from [email or web address]. Review of Systems Const Denies chills, Denies fatigue, Denies fever(s), Denies headache(s) and Denies weakness ENT Denies dizziness and Denies headache(s) Card Denies dyspnea Resp Denies cough, Denies dyspnea, Denies wheezing and Denies other (shortness of breath) Musc Denies numbness and Denies tingling Neuro Denies dizziness, Denies headache(s), Denies numbness, Denies tingling and Denies weakness Psych Denies anxiety and Denies depression Endo Denies fatigue Aller/Immun Denies wheezing Physical exam (Primary Care) Tobacco/Smoking Status: Tobacco use Status Tobacco use date assessed 11/18/23 11/24/23 13:38 Patient Tobacco Use Status Never used Tobacco 11/24/23 13:38 e-Cigarette/Vaping Use Never Used 11/24/23 13:38 Thrive Assessment: Date of Thrive Assessment Date Thrive assessed 11/18/23 11/24/23 13:38 Telehealth Telehealth Telehealth Platform: Telephone Location of provider rendering services: practice address Location of patient: address on file Patient Identification confirmed using: Name, : Yes Telehealth method: voice only Patient verbally consented to treatment: Yes Patient verbally consented to billing insurance company: Yes Patient informed of any privacy concerns related to visit: Yes Minutes spent on Phone/Video with Pt.: 11 Assessment and Plan Assessment & Plan (1) Lumbar radiculopathy: Code(s): M54.16 - Radiculopathy, lumbar region Plan: MRI shows: L5-S1 Grade 2 Anterolisthesis, Pars Defect and Osteophyte resulting in Severe Bilateral Foraminal stenoses with compression of exiting L5 nerve roots bilaterally. Synovial cyst producing Mass effect on travesing R S1 nerve root. Referred?to?neuro?surgery,?Dr.?0h. Orders: Referrals Neurosurgery Referral M54.16 - Radiculopathy, lumbar region Coding Level of Care Code Tele Est Pt Level 2 (28326) Diagnoses Lumbar radiculopathy M54.16
== END ==
PROVIDERS: PCP Family Medicine; Visit Provider Family Medicine
DX: M54.16 Radiculopathy, lumbar region (principal)
CPT/HCPCS: 99212

== ENCOUNTER 2024-02-25 15:46 | Outpatient (AMB) | payer OTHER, SELFPAY ==
--- NOTE | 2024-02-25 15:57 | MHC.OFFVIS ---
Vital Signs 02/25/24 15:58 Height 5 ft 9 in Weight 152 lb 1.903 oz BMI 22.5 BP 128/87 Blood Pressure Location Lt brachial Position Sitting Pulse 79 Intake Visit Reasons: 6 months follow up Intake Note: Ha presents in the office as a 6 month follow up. CC: No concerns at this time just here for a follow up. Claims Investigator Required: No Allergies amoxicillin Allergy (Mild, Verified 02/25/24 16:00) nausea, body aches, headaches, vomiting, body acheses morphine Adverse Reaction (Intermediate, Verified 02/25/24 16:00) nausea, vomiting HPI HPI 6 months follow up: Details: Assessment & Plan (1) Diverticulitis: Code(s): K57.92 - Diverticulitis of intestine, part unspecified, without perforation or abscess without bleeding Plan He has not had any pain, but is still quite aware of his bowels. He is taking metamucil, but CIC was not a prior problem. Will give empiric bactrim and flagyl for self tx if sx recur. ROV 6 mos. Medications: New sulfamethoxazole-trimethoprim 800-160 mg (Bactrim DS) 1 tab PO BID 10 days 20 tabs 0RF K57.92 - Diverticulitis of intestine, part unspecified, without perforation or abscess without bleeding metronidazole 500 mg PO TID 10 days 30 tabs 0RF TODAY'S VISIT He has continued to practice diet modification and has had no return of the pain and has not had to use the antibiotics I gave him. Stools are somewhat on the loose side but of course we do not want to attempt making them more formed as this could lead to constipation and may further precipitate diverticulitis attacks. He is agreeable to this. He is going to be due for colonoscopy in 2024 saw see him in 6 months and that will be what we discuss at her next visit. [facility] Medical History Screening for colon cancer Adult general medical exam Viral illness Joint pain Low back pain Screening for prostate cancer Preop examination Screening for prostate cancer Laboratory examination ordered as part of a routine general medical examination Bilateral hip pain GERD (gastroesophageal reflux disease) Lumbar spondylosis Elevated cholesterol Depression Anxiety Surgical History H/O colonoscopy H/O right knee surgery Family History (Updated 02/25/24 @ 16:00 by KAUSHIK Linares) Paternal Aunt Colon cancer Social History Housing: House Alcohol intake: current Alcohol intake frequency: 0-2 drinks per day Alcohol type: beer Patient Tobacco Use Status: Never used Tobacco e-Cigarette/Vaping Use: Never Used Second Hand Smoke Exposure: No service: No Current occupational status: employed 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 Current occupational exposures/hazards: No Cognitive needs: No Hearing needs: No Vision needs: No Review of Systems Const Denies fatigue, Denies fever(s), Denies night sweats, Denies poor appetite and Denies weight loss Eyes Details: glasses Reports requires corrective lenses ENT Reports Normal hearing present, Denies dental pain, Denies dysphagia, Denies hearing loss, Denies mouth pain, Denies odynophagia, Denies throat swelling, Denies tongue swelling and Reports other (Dentition adequate) Card Reports no additional complaints Resp Reports no additional complaints GI Details: Denies abdominal pain, Denies melena, Denies bloating, Denies hematochezia, Denies constipation, Denies GI cramping, Denies dysphagia, Denies excessive flatus, Denies early satiety, Denies heartburn, Denies diarrhea, Reports loose stools, Denies nausea, Denies odynophagia, Denies vomiting and Denies hematemesis Skin/Breast Denies pruritus, Denies lesions, Denies rash and Denies jaundice Neuro Reports Normal hearing present and Denies Abnormal speech present Endo Denies fatigue Aller/Immun Denies throat swelling and Denies tongue swelling Physical Exam Vital Signs: Last Vital Signs Pulse 79 02/25/24 15:58 BP 128/87 02/25/24 15:58 BMI result Body Mass Index 22.5 Const General: cooperative, no acute distress, well developed and well groomed Nutritional Appearance: average body habitus and well nourished Orientation/consciousness: oriented to person, oriented to place and oriented to time Limitations: No language barrier HEENT Head: Yes normocephalic and Yes atraumatic Eyes General: appearance normal, both eyes and all related structures Pupils: Equal, round and reactive pupils present Neck Neck: Yes normal visual inspection and Yes no lymphadenopathy Thyroid: Thyroid normal Resp Effort & Inspection: normal respiratory effort and able to speak in complete sentences Auscultation: clear to auscultation bilaterally Cardio Rate: regular rate Rhythm: regular rhythm Heart sounds: Normal, physiologic split S2 sound present Peripheral pulses: radial pulses present and posterior tibial pulses present GI Inspection: No distended and No Abdominal panniculus present Palpation (GI): Soft to palpation, nontender, no guarding, not rigid and No hepatosplenomegaly present Percussion: Yes normal to percussion Auscultation: normal bowel sounds Rectal Exam - Male: Yes deferred Skin General skin exam: no rashes or lesions noted, turgor normal, skin not dry, no jaundice, No spider nevi and no striae Rashes: no rashes Nails: normal Neuro General: oriented to person, oriented to place and oriented to time Cranial nerves: Yes Equal, round and reactive pupils present and Yes Normal hearing present Speech: No Abnormal speech present Extrem General: Yes normal to inspection, No clubbing, No cyanosis and No edema Psych Appearance: grossly normal and well kempt Mental Status: mental status grossly normal Speech and movement: Normal speech and movement present Affect: normal affect Attitude: cooperative Thought process: Normal thought process present and not confabulating Thought content: Normal thought content present Insight: Good insight present (Psych) Judgement: Good judgement present (Psych) Assessment & Plan Assessment & Plan (1) Diverticulitis: Code(s): K57.92 - Diverticulitis of intestine, part unspecified, without perforation or abscess without bleeding Category: Medical (2) Tubular adenoma of colon: Comment: 06/2022= 3 TA's scope repeat 3 years Code(s): D12.6 - Benign neoplasm of colon, unspecified Category: Medical Plan He has continued to practice diet modification and has had no return of the pain and has not had to use the antibiotics I gave him. Stools are somewhat on the loose side but of course we do not want to attempt making them more formed as this could lead to constipation and may further precipitate diverticulitis attacks. He is agreeable to this. He is going to be due for colonoscopy in 2024 saw see him in 6 months and that will be what we discuss at her next visit. Coding Level of Care Code Est Pt Level 3 (68691) Diagnoses Diverticulitis K57.92 Tubular adenoma of colon D12.6
[2024-02-25 15:58] VITALS: BP 128/87; PULSE 79; BMI 22.5
== END 2024-02-25 16:19 | disposition home or self-care (01) ==
PROVIDERS: PCP Family Medicine; Visit Provider Nurse Practitioner
DX: K57.92 Diverticulitis of intestine, part unspecified, without perforation or abscess without bleeding (principal); D12.6 Benign neoplasm of colon, unspecified
CPT/HCPCS: 99213

== ENCOUNTER → 2024-02-25 15:46 | Outpatient (BNVA) | payer OTHER, SELFPAY | PROVIDERS: PCP Family Medicine; Visit Provider Nurse Practitioner | DX: K57.92 Diverticulitis of intestine, part unspecified, without perforation or abscess without bleeding (principal); D12.6 Benign neoplasm of colon, unspecified | CPT/HCPCS: 99212 ==

== ENCOUNTER 2024-04-12 11:18 | Outpatient (AMB) | payer OTHER, SELFPAY ==
--- NOTE | 2024-04-12 11:14 | A.OFFPC_ITS ---
Vital Signs 04/12/24 11:35 Height 5 ft 9 in Weight 156 lb 4 oz BMI 23.1 BP 98/82 Blood Pressure Location Rt brachial Position Sitting Respiration 14 Pulse 72 Pulse Source Pulse Oximeter Pulse Oximetry (%) 98 Oxygen Delivery Method Room Air Intake Visit Reasons: follow-up on neurosurgery and knee pain Intake Note: Follow up knee pain Allergies amoxicillin Allergy (Mild, Verified 04/12/24 11:32) nausea, body aches, headaches, vomiting, body acheses morphine Adverse Reaction (Intermediate, Verified 04/12/24 11:32) nausea, vomiting Tobacco use date assessed: 04/12/24 Dental Screening Dental Screen Date: 11/18/23 HPI follow-up on neurosurgery and knee pain HPI Details 48 y/o male presents to f/u back pain, k nee pain. He is s/p L5-S1 steroid injection for foraminal stenosis and compression with radiculopathy in January. Had seen Dr. Romero and they had recommended ongoing steroid injections. Ongoing R knee pain and notes most of the symptoms are in the R. He has been taking ibuprofen, sometimes tylenol for relief. He reports significant anxiety - had been seeing a psychiatrist for several years and had been prescribed lorazepam. Reports difficulty sleeping. Denies any symptoms of sleep apnea. HPI Comments History of Present Illness Details Documentation assistance for Christopher Stoddard MD, was provided by Jhoan Lainez, Orthopedic Shoe Maker on 04/12/2024 at 11:47 AM DWAIN. Jamar, Dr. Stoddard, have read, observed, and verified documentation. [facility] Medical History Screening for colon cancer Adult general medical exam Viral illness Joint pain Low back pain Screening for prostate cancer Preop examination Screening for prostate cancer Laboratory examination ordered as part of a routine general medical examination Bilateral hip pain GERD (gastroesophageal reflux disease) Lumbar spondylosis Elevated cholesterol Depression Anxiety Surgical History H/O colonoscopy H/O right knee surgery Family History (Updated 02/25/24 @ 16:00 by KAUSHIK Linares) Paternal Aunt Colon cancer Social History Housing: House Alcohol intake: current Alcohol intake frequency: 0-2 drinks per day Alcohol type: beer Patient Tobacco Use Status: Never used Tobacco e-Cigarette/Vaping Use: Never Used Second Hand Smoke Exposure: No service: No Current occupational status: employed 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 1. Little interest or pleasure in doing things: not at all 2. Feeling down, depressed, or hopeless: not at all 3. Trouble falling or staying asleep, or sleeping too much: nearly every day 4. Feeling tired or having little energy: several days 5. Poor appetite or overeating: not at all 6. Feeling bad about yourself - or that you are a failure or have let yourself or your family down: not at all 7. Trouble concentrating on things, such as reading the newspaper or watching television: not at all 8. Moving or speaking so slowly that other people could have noticed. Or the opposite - being so fidgety or restless that you have been moving around a lot more than usual: not at all 9. Thoughts that you would be better off or of hurting yourself in some way: not at all Total score: 4 Depression Screening Interpretation: Positive Depression Screening Done: Yes 77088 - PHQ-9 Billing: Yes Source: Developed by Drs. Terry Zacarias, July Sepulveda, Kev Ling and colleagues, with an educational linclon from [employer]. Thrive Questionnaire Date Thrive assessed: 04/12/24 I am a: Patient What is your living situation today?: I have a steady place to live Within the past 12 months, did the food you bought not last and you didn't have the money to get more?: Never true Within the past 12 months, did you worry whether your food would run out before you got money to buy more?: Never true Do you have trouble paying for medicines?: No Do you have trouble getting transportation to medical appointments?: No Do you have trouble paying your heating and electricity bill?: No Do you have trouble taking care of your child, family member or friend?: No Do you have trouble with day-to-day activities such as bathing, preparing meals, shopping, managing finances, etc.?: No Are you currently unemployed and looking for a job?: No Are you interested in more education?: No Please select the resources that you would like help with: None Currently or been in a relationship where the following occur: No concerns reported THRIVE Score: 0 FAZAL-7 AMB Questionnaire FAZAL-7 Date FAZAL - 7 assessed: 04/12/24 Feeling nervous, anxious, or on edge: 0 = Not at all Not being able to stop or control worryin = Not at all Worrying too much about different things: 0 = Not at all Trouble relaxin = Several days Being so restless that it is hard to sit still: 0 = Not at all Becoming easily annoyed or irritable: 1 = Several days Feeling afraid as if something awful might happen: 1 = Several days Total FAZAL-7 score (0-4 normal; 5-9 mild; 10-14 moderate; 15-21 severe): 3 Source: Developed by Drs. Terry Zacarias, July Sepulveda, Kev Ling and colleagues, with an educational lincoln from [employer]. FAZAL-7 Assessment Billing FAZAL-7 Assessment Tool: FAZAL-7 Assessment 34277 Review of Systems Const Denies chills, Denies fatigue, Denies fever(s), Denies headache(s) and Denies weakness ENT Denies dizziness and Denies headache(s) Card Denies dyspnea Resp Denies cough, Denies dyspnea, Denies wheezing and Denies other (shortness of breath) Musc Details: R knee pain Denies numbness and Denies tingling Neuro Denies dizziness, Denies headache(s), Denies numbness, Denies tingling and Denies weakness Psych Reports anxiety and Denies depression Endo Denies fatigue Aller/Immun Denies wheezing Physical exam (Primary Care) Vital Signs: Last Vital Signs Pulse 72 04/12/24 11:35 Resp 14 04/12/24 11:35 BP 98/82 04/12/24 11:35 Pulse Ox 98 04/12/24 11:35 Oxygen Delivery Method Room Air 04/12/24 11:35 BMI result Body Mass Index 23.1 Tobacco/Smoking Status: Tobacco use Status Tobacco use date assessed 04/12/24 04/12/24 11:32 Patient Tobacco Use Status Never used Tobacco 04/12/24 11:14 e-Cigarette/Vaping Use Never Used 04/12/24 11:14 PHQ-9: PHQ-9 Score PHQ-9: Total score 4 04/12/24 11:43 Depression Screening Interpretation: Positive Thrive Assessment: Date of Thrive Assessment Date Thrive assessed 04/12/24 04/12/24 11:36 Currently or been in a relationship where the following occur: No concerns reported Const General: well developed; No acute distress Nutritional Appearance: well nourished Orientation/consciousness: patient oriented x3 [facility] Head: Yes normocephalic and Yes atraumatic Eyes General: appearance normal, both eyes and all related structures Pupils: Equal, round and reactive pupils present EOM: EOMs intact bilaterally Resp Effort & Inspection: normal respiratory effort Auscultation: clear to auscultation bilaterally Cardio Rate: regular rate Rhythm: regular rhythm Heart sounds: S1 normal heart sound present, S2 normal heart sound present, no gallops, no murmurs and no rubs Neuro General: patient oriented x3 and gait normal Cranial nerves: Yes Equal, round and reactive pupils present Psych Affect: normal affect Assessment and Plan Assessment & Plan (1) Lumbar radiculopathy: Code(s): M54.16 - Radiculopathy, lumbar region Plan: S/p L5-S1 steroid injection for foraminal stenosis and compression with radiculopathy, in January. Pt then saw Dr Ohara in March and they discussed fusion - recommended ongoing steroid?injections?until?they?are?no?longer?working.??Fusion?as?last?resort Patient?agrees?with?this?strategy Follow-up?with?neurosurgeon?as?recommended (2) Right knee pain: Code(s): M25.561 - Pain in right knee Plan: History?of?right?knee?arthritis Had?seen?new?[facility]?in?the?past.??Will?refer?him?back?to? Will?check?an?x-ray?and?start?some?physical?therapy Can?use?ibuprofen?as?needed Ice/heat Has?a?brace?and?can?use?this?for?longer?periods?of?walking?or?exertion (3) Anxiety: Code(s): F41.9 - Anxiety disorder, unspecified Plan: History?of?anxiety?and?difficulty?sleeping. Will?give?him?a?script?for?trazodone Encouraged?him?to?work?on?trying?to?go?to?bed?earlier?and?encouraged?h im?to?read?about?sleep?hygiene (4) Difficulty sleeping: Code(s): G47.9 - Sleep disorder, unspecified Plan: As?above Orders: Orders Comprehensive [place]. Panel Fast Today Z00.00 - Encounter for general adult medical examination without abnormal findings Lipid Panel Today Z00.00 - Encounter for general adult medical examination without abnormal findings Microalbumin, Random (w Creat) Today I10 - Essential (primary) hypertension Prostate Specific Antigen Scr Today Z12.5 - Encounter for screening for malignant neoplasm of prostate XR knee LT 3V Today M25.561 - Pain in right knee PT Evaluation and Treatment Today M25.561 - Pain in right knee TSH reflex Free T4 Today Z00.00 - Encounter for general adult medical examination without abnormal findings UA and rflx microscopic Today Z00.00 - Encounter for general adult medical examination without abnormal findings Referrals Orthopedics Referral M17.11 - Unilateral primary osteoarthritis, right knee, M25.561 - Pain in right knee Coding Level of Care Code Est Pt Level 4 (55893) Diagnoses Lumbar radiculopathy M54.16 Right knee pain M25.561 Anxiety F41.9 Difficulty sleeping G47.9 Additional Codes FAZAL-7 Assessment Billing - FAZAL-7 Assessment Tool: FAZAL-7 Assessment 75803 ([id number])
[2024-04-12 11:35] VITALS: BP 98/82; PULSE 72; RESP 14; O2SAT 98; BMI 23.1
== END 2024-04-12 12:03 | disposition home or self-care (01) ==
PROVIDERS: PCP Family Medicine; Visit Provider Family Medicine
DX: M54.16 Radiculopathy, lumbar region (principal); M25.561 Pain in right knee; F41.9 Anxiety disorder, unspecified; G47.9 Sleep disorder, unspecified
CPT/HCPCS: 96127; 99214

== ENCOUNTER 2024-04-28 14:35 | Outpatient (REF) | payer OTHER, SELFPAY ==
--- NOTE | ~2024-04-28 | XR_ITS ---
EXAMINATION: XR KNEE, RIGHT CLINICAL INFORMATION: Pain in right knee COMPARISON: None available. TECHNIQUE: 3 views of the right knee. FINDINGS: Tricompartmental degenerative changes are seen with most marked findings in the medial compartment with narrowing osteophytes and sclerosis. The lateral compartment is well maintained but there are lateral tibial plateau osteophytes. Posterior patellar osteophytes are seen. No significant joint effusion. No fracture. No chondrocalcinosis. XR/XR knee RT 3V IMPRESSION: Tricompartmental degenerative changes most marked in the medial compartment. Electronically signed by: Bennett Lindsey MD 04/28/2024 05:33 PM EDT
== END 2024-04-28 14:36 | disposition home or self-care (01) ==
LOC: HO.XRAY 14:35
PROVIDERS: PCP Family Medicine; Visit Provider Family Medicine
DX: M25.561 Pain in right knee (principal)
CPT/HCPCS: 73562

== ENCOUNTER 2024-05-05 10:56 | Outpatient (AMB) | payer OTHER, SELFPAY ==
--- NOTE | 2024-05-05 10:59 | MHC.OFFVIS ---
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 He has history of multiple surgeries to the right knee including femoral defect repair with Allograft that failed and was later removed, most recent being a Right knee Meniscal and Intraarticular debridement in 2019 at [facility]. His constant right knee pain is affecting and limiting his AODL. In 2020 he was given an unloading brace as he is not a surgical candidate due to his age. Currently he complains of right knee pain and swelling. His pain is felt all the time worse with squatting and prolonged walking. He is a patient with [facility] - He receives lumbar spine injections. 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 He wears an unloading brace and has done so for many years but this is falling apart. He states when he is wearing his brace it is tolerable and when it is not he has to modify his activities. He is not interested in surgery given his age. [facility] Medical History Screening for colon cancer Adult general medical exam Viral illness Joint pain Low back pain Screening for prostate cancer Preop examination Screening for prostate cancer Laboratory examination ordered as part of a routine general medical examination Bilateral hip pain GERD (gastroesophageal reflux disease) Lumbar spondylosis Elevated cholesterol Depression Anxiety Surgical History H/O colonoscopy H/O right knee surgery Family History (Updated 02/25/24 @ 16:00 by KAUSHIK Linares) Paternal Aunt Colon cancer Social History Housing: House Alcohol intake: current Alcohol intake frequency: 0-2 drinks per day Alcohol type: beer Patient Tobacco Use Status: Never used Tobacco e-Cigarette/Vaping Use: Never Used Second Hand Smoke Exposure: No service: No Current occupational status: employed 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 Severe, varus pattern, right knee osteoarthritis Assessment & Plan Assessment & Plan (1) Arthritis of right knee: Code(s): M17.11 - Unilateral primary osteoarthritis, right knee Category: Medical Plan: This is a very pleasant 48-year-old gentleman with right knee osteoarthritis. He is wearing unloading brace which helps him and I will help him get a 1 as this is no longer functional. I think this is a good approach. I also think injections could be useful. We did discuss surgery and the role of robotics in surgical intervention. He will let me know if I can help him out in the future but at this time he is satisfied with bracing. (2) Instability of right knee joint: Code(s): M25.361 - Other instability, right knee Category: Medical Plan: Medial unloading brace. Coding Level of Care Code New Pt Level 3 (15010) Complex EM visit Add On G2211 Diagnoses Arthritis of right knee M17.11 Instability of right knee joint M25.361
== END 2024-05-05 14:42 | disposition home or self-care (01) ==
PROVIDERS: PCP Family Medicine; Visit Provider Orthopaedic Surgery
DX: M17.11 Unilateral primary osteoarthritis, right knee (principal); M25.361 Other instability, right knee
CPT/HCPCS: 99203

== ENCOUNTER → 2024-05-05 10:56 | Outpatient (BNVA) | payer OTHER, SELFPAY | PROVIDERS: PCP Family Medicine; Visit Provider Orthopaedic Surgery | DX: M17.11 Unilateral primary osteoarthritis, right knee (principal); M25.361 Other instability, right knee | CPT/HCPCS: 99202 ==

== ENCOUNTER 2024-07-12 08:05 | Outpatient (REF) | payer OTHER, SELFPAY ==
[2024-07-12 09:11] LABS: Appearance Urine Clear; Color Urine Yellow; Glucose Urine UA Negative (Negative); Leukocyte Esterase Urine Negative (Negative); Nitrite Urine Negative (Negative); PH 5.5 (5.0-9.0); Urine Blood Negative (Negative); Urine Ketones Negative (Negative); Urine Protein Negative (Neg-Trace)
[2024-07-12 09:15] LABS: Alanine Aminotransferase 27 U/L (0-40); Albumin Level 4.1 g/dL (3.5-5.0); Alkaline Phosphatase 55 U/L (39-117); Anion Gap 10 (12-20); Aspartate Amino Transferase 20 U/L (5-37); Bilirubin Total 0.9 mg/dL (0.0-1.0); Blood Urea Nitrogen 13 mg/dL (9-16); Calcium 9.3 mg/dL (8.4-10.2); Carbon Dioxide 28 mmol/L (22-29); Chloride 107 mmol/L (96-108); Cholesterol 187 mg/dL (<200); Estimated Glomerular Filt Rate > 60; Glucose Fasting 108 mg/dL (60-99); HDL Cholesterol 59 mg/dL (>40); LDL Cholesterol Calculated 111 mg/dL (<100); Potassium 4.1 mmol/L (3.3-5.1); Sodium 141 mmol/L (135-145); Total Protein 6.7 g/dL (6.5-8.0); Triglycerides 86 mg/dL (<150)
[2024-07-12 09:31] LABS: TSH reflex Free T4 0.76 uIU/mL (0.32-4.0)
[2024-07-12 09:32] LABS: Prostate Specific Antigen Scr 0.21 ng/mL (<0.05-4.0)
[2024-07-12 09:57] LABS: Creatinine Urine 159.98 mg/dL
== END 2024-07-12 08:06 | disposition home or self-care (01) ==
LOC: HO.LAB 08:05
PROVIDERS: PCP Family Medicine; Visit Provider Family Medicine
DX: Z00.00 Encounter for general adult medical examination without abnormal findings (principal); I10 Essential (primary) hypertension; Z12.5 Encounter for screening for malignant neoplasm of prostate; S89.92XA Unspecified injury of left lower leg, initial encounter; S89.91XA Unspecified injury of right lower leg, initial encounter; M25.561 Pain in right knee; M25.562 Pain in left knee; E78.5 Hyperlipidemia, unspecified
CPT/HCPCS: 36415; 80053; 80061; 81003; 82043; 82570; 84153; 84443; 96127; 99212

== ENCOUNTER 2024-07-12 15:50 | Outpatient (AMB) | payer OTHER, SELFPAY ==
--- NOTE | 2024-07-12 16:22 | MHC.PC.OV ---
Vital Signs 07/12/24 16:26 Height 5 ft 9 in Weight 154 lb 4 oz BMI 22.8 BP 120/70 Blood Pressure Location Rt brachial Position Sitting Respiration 14 Pulse 80 Pulse Source Pulse Oximeter Temp 97.9 F Temp Source Oral Pulse Oximetry (%) 97 Oxygen Delivery Method Room Air Intake Visit Reasons: Extended exam with f/u labs and health maintenance Intake Note: physical Allergies amoxicillin Allergy (Mild, Verified 07/12/24 16:23) nausea, body aches, headaches, vomiting, body acheses morphine Adverse Reaction (Intermediate, Verified 07/12/24 16:23) nausea, vomiting Tobacco use date assessed: 07/12/24 Dental Screening Dental Screen Date: 07/12/24 Did you have a dental visit in the last 12 months?: Yes Did you have a dental problem in the last 6 months where you did not have access to dental care?: No Was dental information given to patient?: Patient has dentist [facility] Medical History (Updated 07/12/24 @ 17:12 by Christopher Stoddard MD) Screening for colon cancer Screening for prostate cancer Adult general medical exam Viral illness Joint pain Low back pain Screening for prostate cancer Preop examination Laboratory examination ordered as part of a routine general medical examination Bilateral hip pain GERD (gastroesophageal reflux disease) Lumbar spondylosis Elevated cholesterol Depression Anxiety Surgical History H/O colonoscopy H/O right knee surgery Family History (Updated 07/12/24 @ 16:25 by Diego Bhakta CMA) Paternal Aunt Colon cancer Mother Alzheimer dementia Social History Housing: House Alcohol intake: current Alcohol intake frequency: 0-2 drinks per day Alcohol type: beer Patient Tobacco Use Status: Never used Tobacco e-Cigarette/Vaping Use: Never Used Second Hand Smoke Exposure: No service: No Current occupational status: employed 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 1. Little interest or pleasure in doing things: not at all 2. Feeling down, depressed, or hopeless: not at all 3. Trouble falling or staying asleep, or sleeping too much: not at all 4. Feeling tired or having little energy: not at all 5. Poor appetite or overeating: not at all 6. Feeling bad about yourself - or that you are a failure or have let yourself or your family down: not at all 7. Trouble concentrating on things, such as reading the newspaper or watching television: not at all 8. Moving or speaking so slowly that other people could have noticed. Or the opposite - being so fidgety or restless that you have been moving around a lot more than usual: not at all 9. Thoughts that you would be better off or of hurting yourself in some way: not at all Total score: 0 Depression Screening Interpretation: Negative Depression Screening Done: Yes 89725 - PHQ-9 Billing: Yes Source: Developed by Drs. Terry Zacarias, July Sepulveda, Kev Ling and colleagues, with an educational lincoln from [employer]. Thrive Questionnaire Date Thrive assessed: 07/12/24 I am a: Patient What is your living situation today?: I have a steady place to live Within the past 12 months, did the food you bought not last and you didn't have the money to get more?: Never true Within the past 12 months, did you worry whether your food would run out before you got money to buy more?: Never true Do you have trouble paying for medicines?: No Do you have trouble getting transportation to medical appointments?: No Do you have trouble paying your heating and electricity bill?: No Do you have trouble taking care of your child, family member or friend?: No Do you have trouble with day-to-day activities such as bathing, preparing meals, shopping, managing finances, etc.?: No Are you currently unemployed and looking for a job?: No Are you interested in more education?: No Please select the resources that you would like help with: None Currently or been in a relationship where the following occur: No concerns reported THRIVE Score: 0 AUDIT C Alcohol Use Questionnaire (AUDIT-C) 1. How often do you have a drink containing alcohol?: 4 or more times a week 2. How many drinks containing alcohol do you have on a typical day when you are drinking?: 1 or 2 3. How often do you have six or more drinks on one occasion?: Never Total Score: 4 FAZAL-7 AMB Questionnaire FAZAL-7 Date FAZAL - 7 assessed: 07/12/24 Feeling nervous, anxious, or on edge: 2 = More than half the days Not being able to stop or control worryin = More than half the days Worrying too much about different things: 2 = More than half the days Trouble relaxin = More than half the days Being so restless that it is hard to sit still: 0 = Not at all Becoming easily annoyed or irritable: 2 = More than half the days Feeling afraid as if something awful might happen: 1 = Several days Total FAZAL-7 score (0-4 normal; 5-9 mild; 10-14 moderate; 15-21 severe): 11 Source: Developed by Drs. Terry Zacarias, July Sepulveda, Kev Ling and colleagues, with an educational lincoln from [employer]. FAZAL-7 Assessment Billing FAZAL-7 Assessment Tool: FAZAL-7 Assessment 88830 Physical exam (Primary Care) Vital Signs: Last Vital Signs Temp 97.9 F 07/12/24 16:26 Pulse 80 07/12/24 16:26 Resp 14 07/12/24 16:26 BP 120/70 07/12/24 16:26 Pulse Ox 97 07/12/24 16:26 Oxygen Delivery Method Room Air 07/12/24 16:26 BMI result Body Mass Index 22.8 Tobacco/Smoking Status: Tobacco use Status Tobacco use date assessed 07/12/24 07/12/24 16:28 Patient Tobacco Use Status Never used Tobacco 07/12/24 16:28 e-Cigarette/Vaping Use Never Used 07/12/24 16:28 PHQ-9: PHQ-9 Score PHQ-9: Total score 0 07/12/24 16:28 Depression Screening Interpretation: Negative Thrive Assessment: Date of Thrive Assessment Date Thrive assessed 07/12/24 07/12/24 16:28 Currently or been in a relationship where the following occur: No concerns reported Coding Level of Care Code Est Pt Level 4 (56754) Diagnoses Injury of left knee S89.92XA Injury of knee, right S89.91XA Left knee pain M25.562 Right knee pain M25.561 Elevated fasting blood sugar R73.01 Hyperlipidemia E78.5 Screening for colon cancer Z12.11 Screening for prostate cancer Z12.5 Adult wellness visit Z00.00 Additional Codes FAZAL-7 Assessment Billing - FAZAL-7 Assessment Tool: FAZAL-7 Assessment 70370 ([id number]) PHQ-9 - 40244 - PHQ-9 Billing: Yes ([id number]) Assessment & Plan Assessment & Plan (1) Injury of left knee: Code(s): S89.92XA - Unspecified injury of left lower leg, initial encounter Category: Medical Plan: Patient?fell?on?bilateral?knees?about?2?weeks?ago. Has?a?small?area?of?sharp?pain?on?left?patella?and?mild?effusion. Check?x-ray Use?ice?and?NSAIDs We?will?follow-up?after?x-ray (2) Injury of knee, right: Code(s): S89.91XA - Unspecified injury of right lower leg, initial encounter Category: Medical Plan: Patient?fell?on?bilateral?knees. History?of?severe?arthritis?and?meniscal?injuries?of?right?knee. Now?has?acute?on?chronic?pain?and?swelling?at?right?knee Check?x-ray Use?brain Relative?rest Use?ice?and?NSAIDs Has?seen??Ady and?may?need?referral?back?to?him We?will?follow-up?after?x-ray?and?determine?next?steps. (3) Left knee pain: Code(s): M25.562 - Pain in left knee Category: Medical Plan: As?above (4) Right knee pain: Code(s): M25.561 - Pain in right knee Category: Medical Plan: As?above (5) Elevated fasting blood sugar: Code(s): R73.01 - Impaired fasting glucose Category: Medical Plan: Mildly?elevated?fasting?blood?sugar?on?lab He?will?get?this?repeated?along?with?an?A1c?in?will?follow-up?at?his?next?visit (6) Hyperlipidemia: Code(s): E78.5 - Hyperlipidemia, unspecified Category: Medical Plan: Mildly?elevated?LDL?cholesterol Encouraged?a?diet?lower?in?saturated?fats?and?cholesterol.??We?can?follow-up?at?a?subsequent?visit (7) Screening for colon cancer: Code(s): Z12.11 - Encounter for screening for malignant neoplasm of colon Category: Medical Plan: Patient?is?followed?by?November?Gutiérrez?for?history?of?diverticulitis/diverticulosis He?has?an?upcoming?appointment?and?expects?he?will?get?scheduled?for?a?colonoscopy. (8) Screening for prostate cancer: Code(s): Z12.5 - Encounter for screening for malignant neoplasm of prostate Category: Medical Plan: PSA?is?within?normal?range. Will?continue?annual?screen (9) Adult wellness visit: Code(s): Z00.00 - Encounter for general adult medical examination without abnormal findings Category: Medical Plan: 48-year-old?male?presents?for?an?extended?exam Encouraged?healthy?diet?with?active?lifestyle?and?plenty?of?exercise Orders: Orders Lipid Panel 1 Day E78.5 - Hyperlipidemia, unspecified, Z00.00 - Encounter for general adult medical examination without abnormal findings XR knee RT 3V Today M25.561 - Pain in right knee, S89.91XA - Unspecified injury of right lower leg, initial encounter XR knee LT 3V Today M25.562 - Pain in left knee, S89.92XA - Unspecified injury of left lower leg, initial encounter Comprehensive [place]. Panel Fast 1 Day E78.5 - Hyperlipidemia, unspecified, Z00.00 - Encounter for general adult medical examination without abnormal findings Hemoglobin A1c Today R73.01 - Impaired fasting glucose
[2024-07-12 16:26] VITALS: BP 120/70; PULSE 80; RESP 14; TEMP 36.6; O2SAT 97; BMI 22.8
== END 2024-07-12 17:06 | disposition home or self-care (01) ==
PROVIDERS: PCP Family Medicine; Visit Provider Family Medicine
DX: S89.92XA Unspecified injury of left lower leg, initial encounter (principal); S89.91XA Unspecified injury of right lower leg, initial encounter; M25.562 Pain in left knee; M25.561 Pain in right knee; R73.01 Impaired fasting glucose; E78.5 Hyperlipidemia, unspecified; Z12.11 Encounter for screening for malignant neoplasm of colon; Z12.5 Encounter for screening for malignant neoplasm of prostate; Z00.00 Encounter for general adult medical examination without abnormal findings

== ENCOUNTER 2024-07-29 14:59 | Outpatient (REF) | payer OTHER, SELFPAY ==
--- NOTE | ~2024-07-29 | XR_ITS ---
CLINICAL HISTORY: M25.561 - Pain in right knee Exam: AP, lateral, and sunrise views of the right knee. Comparison: None. Findings: Mild genu varum. Mild patella baja. Moderate to severe tricompartmental osteoarthritis with joint space narrowing and osteophyte formation. This is most pronounced of the medial compartment. No acute fracture or erosion. Likely small knee joint effusion. Impression: 1. Moderate to severe DJD without acute fracture. 2. 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 This document has been electronically signed by: Eduardo Bryan MD on 08/01/2024 21:37:03
--- NOTE | ~2024-07-29 | XR_ITS ---
CLINICAL HISTORY: M25.562 - Pain in left knee Three views of the left knee. COMPARISON: None FINDINGS: No suprapatellar joint effusion. Joint spaces are maintained. Visualized portions of the distal femur, patella, and proximal tibia and fibula appear intact. IMPRESSION: 1. No radiographic evidence of acute injury to the left knee. No significant degenerative changes. This document has been electronically signed by: Bryant Restrepo MD on 08/01/2024 15:00:47
== END 2024-07-29 15:00 | disposition home or self-care (01) ==
LOC: HO.XRAY 14:59
PROVIDERS: PCP Family Medicine; Visit Provider Family Medicine
DX: M25.561 Pain in right knee (principal); S89.91XA Unspecified injury of right lower leg, initial encounter; M25.562 Pain in left knee; S89.92XA Unspecified injury of left lower leg, initial encounter
CPT/HCPCS: 73562

== ENCOUNTER → 2024-07-29 15:22 | Outpatient (BNV) | payer OTHER, SELFPAY | PROVIDERS: PCP Family Medicine; Visit Provider Radiology Diagnostic Radiology | DX: M25.562 Pain in left knee (principal); M25.561 Pain in right knee | CPT/HCPCS: 73562 ==

== ENCOUNTER 2024-08-18 11:37 | Outpatient (AMB) | payer OTHER, SELFPAY ==
--- NOTE | 2024-08-18 12:03 | A.OFFPC_ITS ---
Vital Signs 08/18/24 12:05 Height 5 ft 9 in Weight 153 lb 4 oz BMI 22.6 BP 100/74 Blood Pressure Location Lt brachial Position Sitting Respiration 12 Pulse 72 Pulse Source Pulse Oximeter Temp 98.0 F Temp Source Oral Pulse Oximetry (%) 96 Oxygen Delivery Method Room Air Intake Visit Reasons: fu knee injury Intake Note: f/u for RT knee injury patient also states he is having some throat discomfort [id number] Allergies amoxicillin Allergy (Mild, Verified 08/18/24 12:04) nausea, body aches, headaches, vomiting, body acheses morphine Adverse Reaction (Intermediate, Verified 08/18/24 12:04) nausea, vomiting Tobacco use date assessed: 07/12/24 Dental Screening Dental Screen Date: 07/12/24 HPI fu knee injury HPI Details 48 y/o male presents to f/u bilateral kn ee pain. Pt had fallen on both knees. Hx of severe R knee arthritis meniscal injuries. Had ordered x-rays. R knee x-ray shows: 1. Moderate to severe DJD without acute fracture. 2. Mild genu varum with mild patella baj a. L knee x-ray shows no significant degenerative changes or evidence of acute injury. Notes difficulty swallowing the last couple weeks. [facility] Medical History (Updated 08/18/24 @ 13:11 by Jhoan Lainez) Screening for colon cancer Screening for prostate cancer Adult general medical exam Viral illness Joint pain Low back pain Screening for prostate cancer Preop examination Laboratory examination ordered as part of a routine general medical examination Bilateral hip pain GERD (gastroesophageal reflux disease) Lumbar spondylosis Elevated cholesterol Depression Anxiety Surgical History H/O colonoscopy H/O right knee surgery Family History (Updated 07/12/24 @ 16:25 by Diego Bhakta CMA) Paternal Aunt Colon cancer Mother Alzheimer dementia Social History Housing: House Alcohol intake: current Alcohol intake frequency: 0-2 drinks per day Alcohol type: beer Patient Tobacco Use Status: Never used Tobacco e-Cigarette/Vaping Use: Never Used Second Hand Smoke Exposure: No service: No Current occupational status: employed 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 1. Little interest or pleasure in doing things: not at all 2. Feeling down, depressed, or hopeless: not at all 3. Trouble falling or staying asleep, or sleeping too much: several days 4. Feeling tired or having little energy: not at all 5. Poor appetite or overeating: not at all 6. Feeling bad about yourself - or that you are a failure or have let yourself or your family down: not at all 7. Trouble concentrating on things, such as reading the newspaper or watching television: not at all 8. Moving or speaking so slowly that other people could have noticed. Or the opposite - being so fidgety or restless that you have been moving around a lot more than usual: not at all 9. Thoughts that you would be better off or of hurting yourself in some way: not at all Total score: 1 Source: Developed by Drs. Terry Zacarias, July Sepulveda, Kev Ling and colleagues, with an educational lincoln from [employer]. Thrive Questionnaire Date Thrive assessed: 07/12/24 I am a: Patient What is your living situation today?: I have a steady place to live Within the past 12 months, did the food you bought not last and you didn't have the money to get more?: Never true Within the past 12 months, did you worry whether your food would run out before you got money to buy more?: Never true Do you have trouble paying for medicines?: No Do you have trouble getting transportation to medical appointments?: No Do you have trouble paying your heating and electricity bill?: No Do you have trouble taking care of your child, family member or friend?: No Do you have trouble with day-to-day activities such as bathing, preparing meals, shopping, managing finances, etc.?: No Are you currently unemployed and looking for a job?: No Are you interested in more education?: No Please select the resources that you would like help with: None Currently or been in a relationship where the following occur: No concerns reported THRIVE Score: 0 AUDIT C Alcohol Use Questionnaire (AUDIT-C) 1. How often do you have a drink containing alcohol?: 4 or more times a week 2. How many drinks containing alcohol do you have on a typical day when you are drinking?: 1 or 2 3. How often do you have six or more drinks on one occasion?: Less than monthly Total Score: 5 FAZAL-7 AMB Questionnaire FAZAL-7 Date FAZAL - 7 assessed: 07/12/24 Feeling nervous, anxious, or on edge: 2 = More than half the days Not being able to stop or control worryin = More than half the days Worrying too much about different things: 2 = More than half the days Trouble relaxin = More than half the days Being so restless that it is hard to sit still: 0 = Not at all Becoming easily annoyed or irritable: 1 = Several days Feeling afraid as if something awful might happen: 1 = Several days Total FAZAL-7 score (0-4 normal; 5-9 mild; 10-14 moderate; 15-21 severe): 10 Source: Developed by Drs. Terry Zacarias, July Sepulveda, Kev Ling and colleagues, with an educational lincoln from [employer]. Review of Systems Const Denies chills, Denies fatigue, Denies fever(s), Denies headache(s) and Denies weakness ENT Denies dizziness and Denies headache(s) Card Denies dyspnea Resp Denies cough, Denies dyspnea, Denies wheezing and Denies other (shortness of breath) Musc Denies numbness and Denies tingling Neuro Denies dizziness, Denies headache(s), Denies numbness, Denies tingling and Denies weakness Psych Denies anxiety and Denies depression Endo Denies fatigue Aller/Immun Denies wheezing Physical exam (Primary Care) Vital Signs: Last Vital Signs Temp 98.0 F 08/18/24 12:05 Pulse 72 08/18/24 12:05 Resp 12 08/18/24 12:05 BP 100/74 08/18/24 12:05 Pulse Ox 96 08/18/24 12:05 Oxygen Delivery Method Room Air 08/18/24 12:05 BMI result Body Mass Index 22.6 Tobacco/Smoking Status: Tobacco use Status Tobacco use date assessed 07/12/24 08/18/24 12:09 Patient Tobacco Use Status Never used Tobacco 01/16/25 12:09 e-Cigarette/Vaping Use Never Used 08/18/24 12:09 PHQ-9: PHQ-9 Score PHQ-9: Total score 1 08/18/24 12:59 Thrive Assessment: Date of Thrive Assessment Date Thrive assessed 07/12/24 08/18/24 12:09 Currently or been in a relationship where the following occur: No concerns reported Const General: well developed; No acute distress Nutritional Appearance: well nourished Orientation/consciousness: patient oriented x3 [facility] Head: Yes normocephalic and Yes atraumatic Eyes General: appearance normal, both eyes and all related structures Pupils: Equal, round and reactive pupils present EOM: EOMs intact bilaterally Resp Effort & Inspection: normal respiratory effort Neuro General: patient oriented x3 and gait normal Cranial nerves: Yes Equal, round and reactive pupils present Psych Affect: normal affect Coding Level of Care Code Est Pt Level 3 (08292) Diagnoses Bilateral knee pain M25.561; M25.562 Dysphagia R13.10 Assessment & Plan Assessment & Plan (1) Bilateral knee pain: Code(s): M25.561 - Pain in right knee; M25.562 - Pain in left knee Category: Medical Plan: Patient?has?a?history?o f?chronic?right?knee?pain?but?recently?fell?audible?knees?with?additional?pain?a t?anterior?right?knee?and?concern?for?fractured?patella. X-ray?does?not?show?any?acute?findings. Pain?has?begun?to?subside He?can?follow-up?with?his?orthopedic?specialist?as?needed?for?chronic?pain. (2) Dysphagia: Code(s): R13.10 - Dysphagia, unspecified Category: Medical Plan: Patient?notes?over?the?last?several?weeks?that?he?has?had?difficulty?with?swallo wing?and?some?choking?sensations Will?check?modified?barium?swallow Meantime,?advised?take?smaller?boluses?food?and?make?sure?that?he?uses?moist?betty ds?and?drinks?plenty?of?fluids Chew?well Also?advised?warm?saltwater?gargles Orders: Orders FL Modified Barium Swallow Today R13.10 - Dysphagia, unspecified
[2024-08-18 12:05] VITALS: BP 100/74; PULSE 72; RESP 12; TEMP 36.7; O2SAT 96; BMI 22.6
== END 2024-08-18 13:11 | disposition home or self-care (01) ==
PROVIDERS: PCP Family Medicine; Visit Provider Family Medicine
DX: M25.561 Pain in right knee (principal); M25.562 Pain in left knee; R13.10 Dysphagia, unspecified

== ENCOUNTER → 2024-08-18 11:37 | Outpatient (BNVA) | payer OTHER, SELFPAY | PROVIDERS: PCP Family Medicine; Visit Provider Family Medicine | DX: M25.561 Pain in right knee (principal); M25.562 Pain in left knee; R13.10 Dysphagia, unspecified | CPT/HCPCS: 99212 ==

== ENCOUNTER 2024-09-13 13:51 | Outpatient (AMB) | payer OTHER, SELFPAY ==
--- NOTE | 2024-09-13 15:20 | MHC.OFFWIV ---
Intake Vital Signs 09/13/24 15:21 Weight 154 lb BP 120/80 Blood Pressure Location Rt brachial Position Sitting Pulse 63 Pulse Source Pulse Oximeter Pulse Oximetry (%) 97 Oxygen Delivery Method Room Air Intake Visit Reasons: EP difficulty swallowing Intake Note: Patient here for difficulty swallowing that has been going on for about 1 month. Patient Tobacco Use Status: Never used Tobacco Allergies amoxicillin Allergy (Mild, Verified 09/13/24 15:22) nausea, body aches, headaches, vomiting, body acheses morphine Adverse Reaction (Intermediate, Verified 09/13/24 15:22) nausea, vomiting Do you need a note to return to daycare/school/sports/work: No HPI HPI Comments History of Present Illness Details This is a 49-year-old male with past medical history of insomnia, anxiety and hyperlipidemia presenting for evaluation of dysphagia. Patient states he has had difficulty swallowing for the past 1 month. Patient saw his primary care physician and a barium swallow was ordered however the test has not been scheduled until the beginning of October. Patient states that he feels discomfort episodically when swallowing, not every time. Patient states he is able to manage his personal secretions well and he notes that the dysphagia is worse when he is lying down at night. Patient feels over the past 1 week the intensity of his dysphagia has worsened. Patient has not been choking on food, regurgitating or coughing. Patient is hopeful that we can reschedule his barium swallow. [facility] Medical History (Updated 09/13/24 @ 16:09 by Ghada Avila PA-C) Screening for colon cancer Screening for prostate cancer Adult general medical exam Viral illness Joint pain Low back pain Screening for prostate cancer Preop examination Laboratory examination ordered as part of a routine general medical examination Bilateral hip pain GERD (gastroesophageal reflux disease) Lumbar spondylosis Elevated cholesterol Depression Anxiety Surgical History H/O colonoscopy H/O right knee surgery Family History (Updated 07/12/24 @ 16:25 by Diego Bhakta CMA) Paternal Aunt Colon cancer Mother Alzheimer dementia Social History Housing: House Alcohol intake: current Alcohol intake frequency: 0-2 drinks per day Alcohol type: beer Patient Tobacco Use Status: Never used Tobacco e-Cigarette/Vaping Use: Never Used Second Hand Smoke Exposure: No service: No Current occupational status: employed 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 Current occupational exposures/hazards: No Cognitive needs: No Hearing needs: No Vision needs: No Review of Systems Const All systems reviewed & are unremarkable except as noted in HPI and below Reports as per HPI Eyes Reports no additional complaints ENT Reports no additional complaints and Reports other (Dysphagia) Card Reports no additional complaints and Denies chest pain Resp Reports no additional complaints and Denies cough GI Reports no additional complaints and Denies dyspepsia Reports no additional complaints Musc Reports no additional complaints Skin/Breast Reports system reviewed and no additional complaints, except as documented Neuro Reports no additional complaints Psych Reports no additional complaints Endo Reports no additional complaints Stevan/Lymph Reports no additional complaints Aller/Immun Reports no additional complaints Physical Exam Vital Signs: Last Vital Signs Pulse 63 09/13/24 15:21 BP 120/80 09/13/24 15:21 Pulse Ox 97 09/13/24 15:21 Oxygen Delivery Method Room Air 09/13/24 15:21 Const General: cooperative, healthy appearing, no acute distress, well developed, alert, awake and Physically active; No acute distress Nutritional Appearance: average body habitus Orientation/consciousness: patient oriented x3 Limitations: no limitations HEENT Head: Yes normal to inspection and Yes normocephalic Mouth: Normal oral and palatal mucosa present and moist mucous membranes Throat: Yes posterior oropharynx normal, No postnasal drainage and No uvula laterally displaced Eyes General: appearance normal, both eyes and all related structures Neck Lymphatic: no lymphadenopathy noted Resp Effort & Inspection: normal respiratory effort and able to speak in complete sentences Auscultation: clear to auscultation bilaterally Neuro General: patient oriented x3 Psych Appearance: grossly normal Mental Status: mental status grossly normal Insight: Good insight present (Psych) Judgement: Good judgement present (Psych) Assessment & Plan Assessment & Plan (1) Dysphagia: Comment: Patient is neurologically intact, in no acute distress and managing secretions independently. Code(s): R13.10 - Dysphagia, unspecified Qualifiers: Dysphagia type: unspecified Qualified Code(s): R13.10 - Dysphagia, unspecified Plan: Patient will go to the ENT office directly in the coming days in an attempt to reschedule his barium swallow. He will follow-up with his PCP as an outpatient as needed. Coding Level of Care Code Est Pt Level 3 (64913) Diagnoses Dysphagia, unspecified type R13.10 Dysphagia type: unspecified Time Spent (min) 20
[2024-09-13 15:21] VITALS: BP 120/80; PULSE 63; O2SAT 97
== END 2024-09-13 16:11 | disposition home or self-care (01) ==
PROVIDERS: PCP Family Medicine; Visit Provider Physician Assistant
DX: R13.10 Dysphagia, unspecified (principal)

== ENCOUNTER → 2024-09-13 13:51 | Outpatient (BNVA) | payer OTHER, SELFPAY | PROVIDERS: PCP Family Medicine | DX: R13.10 Dysphagia, unspecified (principal) | CPT/HCPCS: 99212 ==

== ENCOUNTER → 2024-09-20 09:38 | Outpatient (BNVA) | payer OTHER, SELFPAY | PROVIDERS: PCP Family Medicine; Visit Provider Family Medicine ==

== ENCOUNTER 2024-10-05 14:12 | Outpatient (REF) | payer OTHER, SELFPAY ==
--- NOTE | ~2024-10-05 | FL_ITS ---
EXAMINATION: Modified Barium Swallow CLINICAL INFORMATION: Dysphagia COMPARISON: None TECHNIQUE: Modified barium swallow was performed under lateral fluoroscopy with patient in standing position. Barium mixed with solids and liquids of different consistencies was administered by the speech pathologist. Examination was recorded in the fluoroscopy suite. FINDINGS: No laryngeal penetration or aspiration was observed during this examination. FLUOROSCOPY TIME: 0.7 minutes Number of Spot Images: N/A DOSE AREA PRODUCT: 237.8 uGy-m2 (microgray-meter squared) FL/FL Modified Barium Swallow IMPRESSION: 1. No laryngeal penetration or aspiration was observed during this examination. Refer to the speech therapy report for further clarification This procedure was performed by Mert Armenta PA-C, and supervised by Dr. Whitfield Electronically signed by: Richard Whitfield MD 10/10/2024 04:55 PM EDT
--- OUTSIDE RECORDS SUMMARY | 2024-10-05 17:08 | XMS_ITS | Data Portability ---
Author Organization [facility] Managem [facility], PAIN OFFICE Address [address] [facility] [address] [place] [address] Care Team Providers Care Facilities Maintenance Technician Name Role Phone Dodie ALMONTE Referring Provider CHAZ LAWRENCE Primary Care Provider [phone] Assessment Encounter Date Assessment Date Assessment LastModified by Organization Details LastModified Time 12/17/2023 12/17/2023 Ha Fletcher is a 48 year old man with low back pain radiating into both lower extremities with numbness , greater on the left side. On exam ,he has pain on flexion. MRI Lumbar spine shows Spondylotic and degenerative disc changes of the lumbar spine are present . Grade II spondylolisthesis at L5-S1 measuring 9 mm and chronic bilateral L5 spondylolysis. Severe L5-S1 foraminal narrowing with compression of the exiting L5 nerve roots. Repeat Lumbar epidural steroid injection at L5-S1 level under fluoroscopic guidance was recommended . The risks and benefits of the procedure?? were discussed in detail. He wishes to proceed. An appointment will be booked for the same after insurance approval. He needs a non emergency services ambulance driver on the day of the procedure. He is planning to see Dr. Lev batista Not available 12/17/2023 13:57:11 02/09/2024 02/09/2024 Ha Fletcher is a 48 year old man with low back pain radiating into both lower extremities with numbness , greater on the left side. On exam ,he has pain on flexion. MRI Lumbar spine shows Spondylotic and degenerative disc changes of the lumbar spine are present . Grade II spondylolisthesis at L5-S1 measuring 9 mm and chronic bilateral L5 spondylolysis. Severe L5-S1 foraminal narrowing with compression of the exiting L5 nerve roots. He is here for a Lumbar epidural steroid injection at L5-S1 level under fluoroscopic guidance . The risks and benefits of the procedure?? were discussed in detail. He wishes to proceed. He will follow up as needed. [email or web address] Not available 02/09/2024 08:52:50 05/13/2024 05/13/2024 Ha Fletcher is a 48 year old man with low back pain radiating into both lower extremities with numbness , greater on the left side. On exam ,he has pain on flexion. MRI Lumbar spine shows Spondylotic and degenerative disc changes of the lumbar spine are present . Grade II spondylolisthesis at L5-S1 measuring 9 mm and chronic bilateral L5 spondylolysis. Severe L5-S1 foraminal narrowing with compression of the exiting L5 nerve roots. Repeat Lumbar epidural steroid injection at L5-S1 level under fluoroscopic guidance was recommended . The risks and benefits of the procedure?? were discussed in detail. He wishes to proceed. An appointment will be booked for the same after insurance approval. He needs a non emergency services ambulance driver on the day of the procedure. [email or web address] Not available 05/13/2024 10:14:22 06/23/2024 06/23/2024 Ha Fletcher is a 48 year old man with low back pain radiating into both lower extremities with numbness , greater on the left side. On exam ,he has pain on flexion. MRI Lumbar spine shows Spondylotic and degenerative disc changes of the lumbar spine are present . Grade II spondylolisthesis at L5-S1 measuring 9 mm and chronic bilateral L5 spondylolysis. Severe L5-S1 foraminal narrowing with compression of the exiting L5 nerve roots. He is here for a Lumbar epidural steroid injection at L5-S1 level under fluoroscopic guidance . The risks and benefits of the procedure?? were discussed in detail. He wishes to proceed. He will follow up as needed. [email or web address] Not available 06/23/2024 15:22:54 09/30/2024 09/30/2024 Ha Fletcher is a 49 year old man with low back pain radiating into both lower extremities with numbness , greater on the left side. On exam ,he has pain on flexion. MRI Lumbar spine shows Spondylotic and degenerative disc changes of the lumbar spine are present . Grade II spondylolisthesis at L5-S1 measuring 9 mm and chronic bilateral L5 spondylolysis. Severe L5-S1 foraminal narrowing with compression of the exiting L5 nerve roots. Repeat Lumbar epidural steroid injection at L5-S1 level under fluoroscopic guidance was recommended . The risks and benefits of the procedure?? were discussed in detail. He wishes to proceed. An appointment will be booked for the same after insurance approval. He needs a non emergency services ambulance driver on the day of the procedure. [email or web address] Not available 09/30/2024 10:16:43 Plan of Treatment Reminders Order Date Submit Date Provider Last Modified By Organization Details Last Modified Time Details Appointments PROCEDURE 2024 01:30P M Ly castorena MD Not available Not available Not available Lab None recorded. Referral None recorded. Procedures None recorded. Surgeries None recorded. Imaging None recorded. Medication Orders None recorded. Patient TargetsNo targets recorded. Patient Instructions Encounter Date Encounter Id Patient Instructions Last Modified By Organization Details Last Modified Time 12/17/2023 [id number] He was advised against bed rest lasting longer than four days and to continue activities as tolerated. [email or web address] Not available 12/17/2023 13:56:04 02/09/2024 [id number] He was advised against bed rest lasting longer than four days and to continue activities as tolerated. [email or web address] Not available 02/09/2024 08:51:38 05/13/2024 [id number] He was advised against bed rest lasting longer than four days and to continue activities as tolerated. [email or web address] Not available 05/13/2024 10:12:30 06/23/2024 [id number] He was advised against bed rest lasting longer than four days and to continue activities as tolerated. [email or web address] Not available 06/23/2024 15:22:58 09/30/2024 [id number] He was advised against bed rest lasting longer than four days and to continue activities as tolerated. [email or web address] Not available 09/30/2024 10:15:48 Reason for Referral None Reported. Problems Name Problem SNOMED Code Status Onset Date Resolution Date Notes Provider Name and Address Organization Details Recorded Time Degeneratio n of lumbar interverteb ral disc 85148435 Active 2021 Ly castorena MD [address] [place] [address] , [address], [facility] [place], [address] [place] [address] - [facility] Management 10:47:32 Lumbar spondylolis thesis 5508558029636 02 Active Ly castorena MD [address] , [address], [place], [address], [place] - [facility] 11:18:37 Lumbar radiculopat hy 722880015 Active Ly castorena MD [address] , [address], [place], [address], [place] [facility] 11:18:50 Problem Notes None recorded. Procedures Surgical History Date Name Laterality Status Provider Name and Address Organization Details Recorded Time 06/23/20 24 Lumbar Epidural steroid injection under fluoroscopic guidance completed Ly Webb MD [address] , [address], [place], [address], [place] [facility] 06/23/2024 15:23:41 02/09/20 24 Lumbar Epidural steroid injection under fluoroscopic guidance completed Ly Webb MD [address] , [address], [place], [address], [place] [facility] 02/09/2024 08:52:21 09/17/19 24 Lumbar Epidural steroid injection under fluoroscopic guidance completed Ly Webb MD [address] , [address], [place], [address], [place] [facility] 09/17/2023 09:47:48 11/27/19 23 Lumbar Epidural steroid injection under fluoroscopic guidance completed Ly Webb MD [address] , [address], [place], [address], [place] [facility] 11/26/2022 13:45:55 09/24/19 23 Lumbar Epidural steroid injection under fluoroscopic guidance completed Ly Webb MD [address] , [address], [place], [address], [place] [facility] 09/24/2022 14:42:40 Knee Surgery completed Ly Webb MD [address] , [address], [place], [address], [place] [facility] 07/24/2022 10:51:49 Imaging Results None recorded. Procedure Notes None recorded. Medical Equipment None Reported. Allergies Allergen ID Allergen Name Allergen Category Reaction Reaction Severity Criticality Documentation Date Start Date Code Code System Note Provider Name and Address Organization Details Recorded Time morphine medicatio n nausea mild Not available 07/24/2022 7052 RxNorm Ly castorena MD [address] [facility] , [address], [facility] [place], [address], [place] - [facility] 2 10:45:38 amoxicill in medicatio n nausea moderate low 07/30/2023 723 RxNorm Eri Castro null, [place] - [facility] 3 10:19:36 Medications Name Sig Start Date Stop Date Status Note LastModified by Organization Details LastModified Time buspirone 5 mg tablet TAKE 1/2 A TABLET BY MOUTH TWICE DAILY 12/16 completed Not Available Not Available Not Available atorvastati n 20 mg tablet TAKE 1 TABLET BY MOUTH EVERYDAY AT BEDTIME active Not Available Not Available No t Available trazodone 50 mg tablet TAKE 2 TABLETS BY MOUTH AT BEDTIME NEEDED FOR SLEEP active Not Available Not Available No t Available ibuprofen 800 mg tablet 1 TABLET EVERY 8 HOURS NEEDED FOR PAIN active Not Available Not Available No t Available meloxicam 15 mg tablet TAKE 1 TABLET BY MOUTH EVERY DAY 07/24 completed Not Available Not Available Not Available metronidazo le 500 mg tablet TAKE 1 TABLET BY MOUTH THREE TIMES A DAY FOR 10 DAYS 09/17 completed Not Available Not Available Not Available sulfamethox azole 800 mg-trimetho prim 160 mg tablet TAKE 1 TABLET BY MOUTH TWICE A DAY FOR 10 DAYS 09/17 completed Not Available Not Available Not Available amoxicillin 500 mg tablet TAKE 1 TABLET BY MOUTH EVERY 8 HOURS 07/30 completed Not Available Not Available Not Available lorazepam 0.5 mg tablet TAKE 1 TAB BY MOUTH UP TO TWICE DAILY IF NEEDED FOR SEVERE ANXIETY. active Not Available Not Available No t Available cephalexin 500 mg capsule TAKE 1 CAPSULE BY MOUTH EVERY 12 HOURS FOR 10 DAYS 10/31 completed Not Available Not Available Not Available gabapentin 300 mg capsule TAKE 1 CAPSULE BY MOUTH THREE TIMES A DAY active Not Available Not Available No t Available ondansetron 4 mg disintegrat ing tablet TAKE 1 TABLET BY MOUTH 3 TIMES A DAY NEEDED FOR NAUSEA AND VOMITTING FOR 5 DAYS 07/30 completed Not Available Not Available Not Available cefdinir 300 mg capsule 300 MG ORALLY 2 TIMES A DAY FOR 10 DAYS 07/30 completed Not Available Not Available Not Available amoxicillin 875 mg-potdevaniu m clavulanate 125 mg tablet TAKE 1 TABLET BY MOUTH TWICE A DAY 07/30 completed Not Available Not Available Not Available oxycodone 5 mg tablet TAKE ONE TABLET EVERY 6 HOURS NEEDED FOR PAIN 07/30 completed Not Available Not Available Not Available GaviLyte-G 236 gram-22.74 gram-6.74 gram-5.86 gram oral solution PLEASE SEE ATTACHED FOR DETAILED DIRECTION S 07/24 completed Not Available Not Available Not Available Paxlovid 300 mg (150 mg x 2)-100 mg tablets in a dose pack TAKE #2 150MG NIRMATREL VIR AND #1 100MG RITONAVIR TWO TIMES A DAY FOR 5 DAYS 07/30 completed Not Available Not Available Not Available Vitals Date Recorded Body height Heart rate Oxygen saturation Oxygen saturation in Arterial blood by Pulse oximetry Systolic blood pressure Diastolic blood pressure Provider Name and Address Organization Details Last Updated DateTime 4 177.8 cm 76 /min 95 % 95 % 135 mm[Hg] 86 mm[Hg] Eri Castro [place] - [facility] 4 13:36:51 Date Recorded Body height Heart rate Oxygen saturation Oxygen saturation in Arterial blood by Pulse oximetry Systolic blood pressure Diastolic blood pressure Provider Name and Address Organization Details Last Updated DateTime 4 177.8 cm 64 /min 95 % 95 % 125 mm[Hg] 75 mm[Hg] Maryanne Vargas [place] - [facility] 4 08:33:27 Date Recorded Body height Heart rate Oxygen saturation Oxygen saturation in Arterial blood by Pulse oximetry Body mass index (BMI) Body weight Systolic blood pressure Diastolic blood pressure Provider Name and Address Organization Details Last Updated DateTime 4 177.8 cm 69 /min 98 % 98 % 22 kg/m2 99444.6 3 g 114 mm[Hg] 78 mm[Hg] Ly castorena MD [address] [facility] , [address], [facility] [place], [address], [place] - [facility] 4 09:57:28 Date Recorded Body height Oxygen saturation Oxygen saturation in Arterial blood by Pulse oximetry Heart rate Systolic blood pressure Diastolic blood pressure Provider Name and Address Organization Details Last Updated DateTime 4 177.8 cm 96 % 96 % 74 /min 106 mm[Hg] 70 mm[Hg] Stephanie Cuetokeegan corbett [place] - [facility] 4 14:59:16 Date Recorded Body height Heart rate Oxygen saturation Oxygen saturation in Arterial blood by Pulse oximetry Body mass index (BMI) Body weight Systolic blood pressure Diastolic blood pressure Provider Name and Address Organization Details Last Updated DateTime 5 177.8 cm 68 /min 100 % 100 % 21.5 kg/m2 18053.8 6 g 125 mm[Hg] 79 mm[Hg] Ly castorena MD [address] , [address], [place], [address], [place] - [facility] 5 10:05:18 Social History Question Answer Notes LastModified by Organizat ion Details LastModified Time Tobacco Smoking Status Never Smoker Ly Webb MD [address] , [address], [place], [address], [place] - [facility] 07/24/2022 10:50:54 What Is Your Level Of Alcohol Consumption? Occasional Information not available 07/24/2022 Are You Blind Or Do You Have Difficulty Seeing? No Information not available 07/24/2022 Are You Currently Employed? Yes Information not available 07/24/2022 Are You Deaf Or Do You Have Serious Difficulty Hearing? No Information not available 07/24/2022 What Is The Highest Grade Or Level Of School You Have Completed Or The Highest Degree You Have Received? [id number] Brazilian Information not available 07/24/2022 What Is Your Occupation? [employer] Information not available 07/24/2022 What Is Your Relationship Status? Other Engaged Information not available 07/24/2022 Do You Use Any Illicit Or Recreational Drugs? No Cannabis - Medical For Anxiety Information not available 07/24/2022 Sex: Unknown Functional Status Question Answer Note LastModified by Organization D etails LastModified Time Do you have difficulty walking or climbing stairs? Yes Information not available 07/24/2022 Do you have difficulty doing errands alone? No Information not available 07/24/2022 Do you have difficulty dressing or bathing? No Information not available 07/24/2022 Mental Status Question Answer Note LastModified by Organization D etails LastModified Time Do you have difficulty concentrating, remembering or making decisions? No Information no t available 07/24/2022 Family History Relationship Description Onset Age of this Age Resolved Age Notes LastModified by Organization Details LastModified Time Father Arthritis [email or web address] Not avail able 07/24/2022 10:48:09 Mother Dementia Alzhem ier's [email or web address] Not available 07/24/2022 10:48:33 Medical History Condition Response Anxiety Disorder Y Arthritis Y High Cholesterol Y Immunizations Vaccine Type Date Status Note Provider Nam e and Address Organization Details Recorded Time SARS-COV-2 (COVID-19) vaccine, UNSPECIFIED 08/03/2023 completed [facility] 09/17/2023 09:25:50 Past Encounters Encounter ID Performer Location Encounter Start Date Encounter Closed Date Diagnosis/Indication Diagnosis SNOMED-CT Code Diagnosis ICD10 Code Diagnosis Note [id number] Ly Webb MD PAIN OFFICE [address] [place] [address] 07/24/2022 10:11:09 07/24/2022 11:30:11 Degeneration of lumbar intervertebral disc 47175926 M51.36 Lumbar radiculopathy 128 780594 M54.16 [id number] Ly Webb MD PAIN OFFICE [address] [place] [address] 09/24/2022 14:01:38 09/24/2022 15:09:25 Degeneration of lumbar intervertebral disc 76426583 M51.36 Lumbar radiculopathy 128 773592 M54.16 [id number] Ly Webb MD PAIN OFFICE [address] [place] [address] 10/31/2022 10:44:39 10/31/2022 11:00:47 Degeneration of lumbar intervertebral disc 60890513 M51.36 Lumbar radiculopathy 128 320674 M54.16 [id number] Ly Webb MD [facility] PAIN OFFICE [address] [place] [address] 11/26/2022 13:26:08 11/26/2022 13:51:19 Degeneration of lumbar intervertebral disc 08272120 M51.36 Lumbar radiculopathy 128 416976 M54.16 [id number] Ly Webb MD [facility] PAIN OFFICE [address] [place] [address] 07/30/2023 10:15:10 07/30/2023 10:51:10 Lumbar radiculopathy 205831311 M54.16 Degenerati on of lumbar intervertebral disc 33796915 M51.36 [id number] Ly Webb MD [facility] PAIN OFFICE [address] [place] [address] 09/17/2023 09:16:29 09/17/2023 10:28:40 Degeneration of lumbar intervertebral disc 15395584 M51.36 Lumbar radiculopathy 128 629222 M54.16 [id number] Ly Webb MD PAIN OFFICE [address] [place] [address] 12/17/2023 13:26:00 12/17/2023 13:59:05 Lumbar radiculopathy 264955164 M54.16 Degenerati on of lumbar intervertebral disc 32707146 M51.36 [id number] Ly Webb MD [facility] PAIN OFFICE [address] [place] [address] 02/09/2024 08:17:18 02/09/2024 11:29:16 Lumbar radiculopathy 416052786 M54.16 Lumbar spondylolisthesis 6311078945 17041 M43.16 Degenerati on of lumbar intervertebral disc 43686716 M51.36 [id number] Ly Webb MD PAIN OFFICE [address] [place] [address] 05/13/2024 09:52:03 05/13/2024 10:16:43 Lumbar radiculopathy 831007345 M54.16 Lumbar spondylolisthesis 8586963262 88886 M43.16 Degenerati on of lumbar intervertebral disc 63218302 M51.362 [id number] Ly Webb MD [facility] PAIN OFFICE [address] [facility] [place] [address] 06/23/2024 14:50:17 06/23/2024 15:28:41 Lumbar spondylolisthesis 3923071556 76087 M43.16 Lumbar radiculopathy 128 708934 M54.16 Degenerati on of lumbar intervertebral disc 97329466 M51.362 [id number] Ly Webb MD [facility] PAIN OFFICE [address] [facility] [place] [address] 09/30/2024 09:57:20 09/30/2024 10:18:01 Lumbar radiculopathy 218661637 M54.16 Lumbar spondylolisthesis 0826060007 24815 M43.16 Degenerati on of lumbar intervertebral disc 23438808 M51.362 Health Concerns Section Related Observation LastModified by Organization Detai ls LastModified Time None Recorded Concern Status LastModified by Organization Details LastModified Time None Recorded Advance Directives Directive None Recorded Payers Encounter Date Sequence Insurance Name Policy Number Policy Ceja Covered Member ID Ceja Member ID Guarantor Name 12/17/2023 1 [facility] (MEDICAID HMO) MATA Fletcher [id number] Ha Fletcher 02/09/2024 1 [facility] (MEDICAID HMO) MATA Fletcher [id number] Ha Fletcher 05/13/2024 1 [facility] (MEDICAID HMO) MATA Fletcher [id number] Ha Fletcher 06/23/2024 1 [facility] (MEDICAID HMO) MATA Fletcher [id number] Ha Fletcher 09/30/2024 1 [facility] NET [facility] (MEDICAID HMO) MATA Fletcher [id number] Ha Fletcher Notes Date Note Type Note Provider Name and Address Organization Details Recorded Time 12/17/2023 text/html Ha Fletcher is a 48 year old man with complaints of low back pain radiating into left lower extremity. The pain started in 04/2021. He was putting up a fence in his house and using an auger . He started to have severe pain radiating into left lower extremity. He describes the pain as a shooting pain , sharp from his left buttock region to the left leg with numbness, tingling and weakness in his left lower extremity. Current pain level is 5-10/10. Pain is aggravated by standing and walking . Pain is relieved a little with application of heat. He has no history of bladder or bowel incontinence.MRI Lumbar spine shows Grade II spondylolisthesis at L5-S1 measuring 9 mm and chronic bilateral L5 spondylolysis. Severe L5-S1 foraminal narrowing with compression of the exiting L5 nerve roots.He has trialed physical therapy with some pain benefit. He has also trialed massage.He is on gabapentin.He is here for a follow up after a lumbar epidural steroid injection under fluoroscopic guidance on 09/17/2023. He reports 90% pain relief for 3 months. He has return of pain back to baseline.. He has no history of bladder or bowel incontinence.He plans on seeing Dr. Ohara. His office states he needs an update CT scan which he is working with his PCP to get done. Ly Webb MD [address] , [address], [place], [address], [facility] Pain Management 12/17/2023 14:16:58 02/09/2024 text/html He is here today for a lumbar epidural steroid injection under fluoroscopic guidance. He has seen Dr. Stevie Ohara and he does not recommend surgery at time. Ly Webb MD [address] , [address], [place], [address], [facility] - Pain Management 02/09/2024 15:29:22 05/13/2024 text/html Ha Fletcher is a 48 year old man with complaints of low back pain radiating into left lower extremity. The pain started in 04/2021. He was putting up a fence in his house and using an auger . He started to have severe pain radiating into left lower extremity. He describes the pain as a shooting pain , sharp from his left buttock region to the left leg with numbness, tingling and weakness in his left lower extremity. Current pain level is 5-10/10. Pain is aggravated by standing and walking . Pain is relieved a little with application of heat. He has no history of bladder or bowel incontinence.MRI Lumbar spine shows Grade II spondylolisthesis at L5-S1 measuring 9 mm and chronic bilateral L5 spondylolysis. Severe L5-S1 foraminal narrowing with compression of the exiting L5 nerve roots.He has trialed physical therapy with some pain benefit. He has also trialed massage.He is on gabapentin.He is here for a follow up after a lumbar epidural steroid injection under fluoroscopic guidance on 02/09/2024. He reports 90% pain relief for 3 months. He has return of pain back to baseline.. He has no history of bladder or bowel incontinence.He has seen Dr. Ohara. He wants to hold off on surgery . He has knee arthritis and is using a knee brace with some pain benefit Ly Webb MD [address] , [address], [place], [address], [facility] - Pain Management 05/13/2024 10:27:18 06/23/2024 text/html He is here today for a lumbar epidural steroid injection under fluoroscopic guidance. He has seen Dr. Stevie Ohara and he does not recommend surgery at time. Ly Webb MD [address] , [address], [place], [address], [facility] - Pain Management 06/23/2024 15:34:49 09/30/2024 text/html Ha Fletcher is a 48 year old man with complaints of low back pain radiating into left lower extremity. The pain started in 04/2021. He was putting up a fence in his house and using an auger . He started to have severe pain radiating into left lower extremity. He describes the pain as a shooting pain , sharp from his left buttock region to the left leg with numbness, tingling and weakness in his left lower extremity. Current pain level is 5-10/10. Pain is aggravated by standing and walking . Pain is relieved a little with application of heat. He has no history of bladder or bowel incontinence.MRI Lumbar spine shows Grade II spondylolisthesis at L5-S1 measuring 9 mm and chronic bilateral L5 spondylolysis. Severe L5-S1 foraminal narrowing with compression of the exiting L5 nerve roots.He has trialed physical therapy with some pain benefit. He has also trialed massage.He is on gabapentin.He is here for a follow up after a lumbar epidural steroid injection under fluoroscopic guidance on 06/23/2024. He reports 90% pain relief for 3 months. He has return of pain back to baseline.. He has no history of bladder or bowel incontinence.He has seen Dr. Ohara. He wants to hold off on surgery . He has knee arthritis and is using a knee brace with some pain benefit Ly Webb MD [address] [place] [address] , [address], [place], [address], [facility] 09/30/2024 10:56:28
--- OUTSIDE RECORDS SUMMARY | 2024-10-05 17:09 | XMS_ITS | Continuity of Care Document ---
Author Organization [facility], PAIN OFF[facility] Address [address] [facility] [address] [place] [address] Care Team Providers Care Corner Block Cutter Name Role Phone Dodie ALMONTE Referring Provider CHAZ LAWRENCE Primary Care Provider [phone] Assessment Encounter Date Assessment Date Assessment LastModified by Organization Details LastModified Time 09/30/2024 09/30/2024 Ha Fletcher is a 49 [...] . The risks and benefits of the procedure? ? ? were discussed in detail. He wishes to proceed. An appointment will be booked for the same after insurance approval. He needs a front end driver on the day of the procedure. [...] Modified By Organization Details Last Modified Time 09/30/2024 [id number] He was advised against bed rest lasting longer than four days and to continue activities as tolerated. [email or web address] Not available 09/30/2024 10:15:48 Reason for Referral None Reported. Problems Name Problem SNOMED Code Status Onset Date Resolution Date Notes Provider Name and Address Organization Details Recorded Time Degeneratio n of lumbar interverteb ral disc 95282918 Active 2021 Ly castorena MD [address] , [address], [place], [address], [place] [facility] 2 10:47:32 Lumbar spondylolis thesis 0543623958277 02 Active Ly castorena MD [address] , [address], [place], [address], [place] [facility] 2 11:18:37 Lumbar radiculopat hy 242035460 Active Ly castorena MD [address] , [address], [place], [address], [place] [facility] 11:18:50 Problem Notes None recorded. Procedures Surgical History Date Name Laterality Status Provider Name and Address Organization Details Recorded Time 06/23/20 24 Lumbar Epidural steroid injection under fluoroscopic guidance completed Ly Webb MD [address] , [address], [place], [address], [place] [facility] 06/23/2024 15:23:41 02/09/20 24 Lumbar Epidural steroid injection under fluoroscopic guidance completed Ly Webb MD [address] , [address], [place], [address], [place] [facility] 02/09/2024 08:52:21 09/17/19 24 Lumbar Epidural steroid injection under fluoroscopic guidance completed Ly Webb MD [address] , [address], [place], [address], [place] [facility] 09/17/2023 09:47:48 11/27/19 23 Lumbar Epidural steroid injection under fluoroscopic guidance completed Ly Webb MD [address] , [address], [place], [address], [place] [facility] 11/26/2022 13:45:55 09/24/19 23 Lumbar Epidural steroid injection under fluoroscopic guidance completed Ly Webb MD [address] [facility] , [address], [place], [address], [place] [facility] 09/24/2022 14:42:40 Knee Surgery completed Ly Webb MD [address] , [address], [place], [address], [place] [facility] 07/24/2022 10:51:49 Imaging Results None recorded. Procedure Notes None recorded. Medical Equipment None Reported. Allergies Allergen ID Allergen Name Allergen Category Reaction Reaction Severity Criticality Documentation Date Start Date Code Code System Note Provider Name and Address Organization Details Recorded Time morphine medicatio n nausea mild Not available 07/24/2022 7052 RxNorm Ly castorena MD [address] , [address], [place], [address], [place] [facility] 2 10:45:38 25060 amoxicill in medicatio n nausea moderate low 07/30/2023 723 RxNorm Eri Castro [facility], [place] [facility] 3 10:19:36 [...] Available Not Available Not Available amoxicillin 875 mg-potassiu m clavulanate 125 mg tablet TAKE 1 [...] /min 100 % 100 % 21.5 kg/m2 95607.8 6 g 125 mm[Hg] 79 mm[Hg] Ly castorena MD [address] [facility] , [facility] [address], [facility] [place], [address] 5 10:05:18 Social History Question Answer Notes LastModified by Organizat ion Details LastModified Time Tobacco Smoking Status Never Smoker Ly Webb MD [address] , [address], [place], [address], [place] [facility] 07/24/2022 10:50:54 [...] Or The Highest Degree You Have Received? [id number] Telugu Information not available 07/24/2022 What Is Your Occupation? [employer] Information not available 07/24/2022 What Is Your [...] Immunizations Vaccine Type Date Status Note Provider Cresencio mcgovern and Address Organization Details Recorded Time SARS-COV-2 (COVID-19) vaccine, UNSPECIFIED 08/03/2023 completed Eri saini [place] [facility] 09/17/2023 09:25:50 Past Encounters Encounter ID Performer Location Encounter Start Date Encounter Closed Date Diagnosis/Indication Diagnosis SNOMED-CT Code Diagnosis ICD10 Code Diagnosis Note [id number] Ly Webb MD PAIN OFFICE [address] [place] [address] [place] [address] 09/30/2024 09:57:20 09/30/2024 10:18:01 Lumbar radiculopathy 029012353 M54.16 Lumbar spondylolisthesis 7839930983 39361 M43.16 Degenerati on of lumbar intervertebral disc 30351925 M51.362 Health Concerns Section Related Observation LastModified by Organization Detai ls LastModified Time None Recorded Concern Status LastModified by Organization Details LastModified Time None Recorded Payers Encounter Date Sequence Insurance Name Policy Number Policy Ceja Covered Member ID Ceja Member ID Guarantor Name 09/30/2024 1 [facility] PLAN (MEDICAID HMO) [employer] Ha Fletcher [id number] Ha Fletcher Notes Date Note Type Note Provider Name and Address Organization Details Recorded Time 09/30/2024 text/html Ha Fletcher is a 48 [...] with some pain benefit Ly Webb MD [address] [place] [address] , [address], [place], [address], [facility] 09/30/2024 10:56:28
--- NOTE | 2024-10-06 14:25 | MHC.SL.IMP ---
Date of Plan of Treatment: 10/05/24 Onset of Symptoms/Illness: 08/03/24 Date Treatment Started: 10/05/24 Admitting Diagnosis: R13.10 Dysphagia, unspecified Primary Speech & Language Diagnosis: R13.10 Dysphagia Reason for Today's Visit: 01730 Modified Barium Swallow Study Pre-evaluation Dietary Consistencies: Regular Pre-evaluation Liquid Consistency: Thin Pre-evaluation Medication Administration: Whole with Liquid Medical History: Modified Barium Swallow Study Fluoroscopic Evaluation of Swallowing Function CPT Code 87908 Evaluation Year: 2024 Reason for Study: Patient reporting difficulty swallowing Referring Physician: Christopher Stoddard MD Evaluating Clinician: Dora Andre MA, CCC-AUTO EMISSIONS TECHNICIAN Study Number: 1 Patient Name: Ha Fletcher Status: Outpatient, Ambulatory Age: 49 Gender: Male Medical History Medical History (Updated 08/18/24 @ 13:11 by Jhoan Lainez) Screening for colon cancer Screening for prostate cancer Adult general medical exam Viral illness Joint pain Low back pain Screening for prostate cancer Preop examination Laboratory examination ordered as part of a routine general medical examination Bilateral hip pain GERD (gastroesophageal reflux disease) Lumbar spondylosis Elevated cholesterol Depression Anxiety Surgical History H/O colonoscopy H/O right knee surgery Current (pre-evaluation) Intake/Diet: Route: PO Diet Grade: Regular Liquid Consistencies: Thin Pre-Study Functional Oral Intake Scale (FOIS): 7- Total oral intake with no restrictions Pain: None reported at time of study SUBJECTIVE: Patient is a 49 year old male referred for a modified barium swallow study by Christopher Stoddard MD from [facility]. Patient reports onset of dysphagia beginning of this August after having an episode of vomiting. Patient says that after that event, the act of swallowing felt mechanical. He became more aware of his swallowing and felt a clunk or clicking sensation intermittently with swallowing. Patient says his difficulties worsened over the course of two weeks and then improved. However, he now experiences new symptoms of sore throat and acid reflux. Patient denies pain with swallowing, but endorses some throat discomfort. Note history of GERD in patient's record. He is followed by Jessie Gutiérrez from Gastroenterology for diverticulitis/diverticulosis. Oral Motor Exam Facial Symmetry: Symmetrical Mouth Occlusion: Normal Oral-Facial Teeth Characteristics: Intact/Normal Oral-Facial Lip Pucker Description: Normal Oral-Facial Smile (Lips) Description: Normal Oral-Facial Puff Cheeks Description: Normal Tongue Size: Normal Tongue Excursion Description: Normal Tongue Range of Movement Description: Normal Tongue Speed of Movement Description: Normal Tongue Strength of Movement (against opposing pressure): Normal Tongue Movement Characteristics: Normal/Absent Is patient able to manage secretions?: Yes Is patient able to produce volitional cough?: Yes Food and Liquid Trials: Oral Impairment: Lip Closure: Did not test Oral Impairment: Tongue Control During Bolus Hold: Did not test Oral Impairment: Bolus Preparation/Mastication: 0=Timely and efficient chewing and mashing Oral Impairment: Bolus Transport/Lingual Motion: 0=Brisk tongue motion Oral Impairment: Oral Residue: Did not test Oral Impairment:Initiation of Pharyngeal Swallow: 0=Bolus head at posterior angle of ramus (first hyoid excursion) Pharyngeal Impairment: Soft Palate Elevation: Did not test Pharyngeal Impairment: Laryngeal Elevation: 0=Complete superior movement of thyroid cartilage (see description) Pharyngeal Impairment: Anterior Hyoid Excursion: 0=Complete anterior movement Pharyngeal Impairment: Epiglottic Movement: 0=Complete inversion Pharyngeal Impairment: Laryngeal Vestibular Closure:: 0=Complete: no air/contrast in laryngeal vestibule Pharyngeal Impairment: Pharyngeal Stripping Wave: 0=Present: complete Pharyngeal Impairment: Pharyngeal Contraction: Did not test Pharyngeal Impairment: Pharyngoesophageal Segment Openin=Partial distention/partial duration: partial obstruction of flow Pharyngeal Impairment: Tongue Base (TB) Retraction: 1=Trace column of contrast/air between TB and posterior PW Pharyngeal Impairment: Pharyngeal Residue: 1=Trace residue within or on pharyngeal structures Pharyngeal Impairment: Esophageal Clearance Upright Position: Did not test Impressions and Recommendations OBJECTIVE: Time-out: performed at 15:00 Evaluation Start: 14:30; Stop: 14:35 Patient Positioning: Standing Viewing Planes: LATERAL ONLY Contrast: MBSImP? Standardized Protocol using commercially prepared, standardized Barium viscosities, including: Varibar? THIN LIQUID (40% w/v, <15 cps) , Varibar? PUDDING (40% w/v, <0277-2218 cps) , 1/2 Shortbread Cookie (1 x1 x.25 ) MBSImP ID: [id number] MBSImP Results: Lip closure for intraoral bolus containment could not be assessed due to logistical reasons not related to physiologic impairment. Tongue control during bolus hold could not be assessed due to logistical reasons not related to physiologic impairment. Bolus preparation and mastication resulted in timely and efficient chewing and mashing. Bolus transport/lingual motion was with brisk tongue motion. Oral residue could not be assessed due to logistical reasons not related to physiologic impairment. Initiation of the pharyngeal swallow occurred as the bolus head reached the posterior angle of the mandibular ramus. Soft palate elevation could not be assessed due to logistical reasons not related to physiologic impairment. Laryngeal elevation demonstrated complete superior movement of the thyroid cartilage with complete approximation of the arytenoids to the epiglottic petiole. Anterior hyoid excursion demonstrated complete anterior movement. Epiglottic movement resulted in complete inversion. Laryngeal vestibular closure was complete, as indicated by no air or contrast within the laryngeal vestibule at the height of the swallow. Pharyngeal stripping wave was present and complete. Pharyngeal contraction could not be determined due to logistical reasons not related to physiologic impairment. Pharyngoesophageal segment opening demonstrated partial distension/partial duration, with partial obstruction of bolus flow. Tongue base retraction allowed a trace column of contrast or air between the retracted tongue base and the posterior pharyngeal wall. Pharyngeal residue was a trace within or on pharyngeal structures. Esophageal clearance in the upright position could not be assessed due to logistical reasons not related to physiologic impairment. Oral Impairment Score: 0 (absence of score, component 1component 2component 5) Pharyngeal Impairment Score: 1 (absence of score, component 7component 13) Esophageal Impairment Score: --- (absence of score, component 17) Laryngeal Penetration and Aspiration: Neither penetration nor aspiration was observed in today's study with Cookie, Pudding-thick, Thin. ASSESSMENT: This exam was conducted by the radiologist and the speech pathologist. Patient was standing for lateral view only and fed himself without difficulty. He trialed thin (via individual cup sips), puree, and regular solid consistencies. Patient presented with timely and efficient mastication and timely and brisk posterior lingual transport. Pharyngeal swallow trigger was timely, initiated as the bolus head reached the posterior angle of the ramus. Complete laryngeal elevation with complete epiglottic inversion and complete laryngeal vestibular closure. No evidence of aspiration or penetration during this exam. Trace residue coating the tongue base, valleculae, and pyriforms cleared with subsequent swallows. Liquid Intake Recommendation: Thin Liquid Intake Strategies: Unrestricted Dietary Recommendations: Regular Medication Administration: Whole with Liquid Please contact the pharmacy regarding appropriate crushable or liquid drug formulations that are available whenever modified delivery is recommended. Compensatory Strategies Recommended: Sitting Upright (90 deg), Small Bites and Sips, Rate of Ingestion Change Supervision during eating and or drinking: None Needed Recommendation for Speech Therapy: NA:Typical Evaluation Text Comment: Intake Recommendations: Route: PO Diet Grade: Regular Liquid Consistencies: Thin Post-Study Functional Oral Intake Scale (FOIS): 7- Total oral intake with no restrictions Overall, unremarkable exam. Good oral and pharyngeal clearance. No evidence of aspiration or penetration. Suggested Referrals: The patient might benefit from a referral to: Otolaryngology Indication for Referral: Throat discomfort since vomiting 2 months ago, hx GERD, ? Irritable Larynx Therapy Recommendations: Swallow deemed functional in the oral and pharyngeal phase. Speech therapy and diet modification is not indicated at this time. Prognosis for Improvement: The prognosis for the patient to meet nutritional needs by mouth is excellent based on degree of impairment. Clinician - Supplemental, Miscellaneous Communication: It is important to note MBSS objective studies are snapshots in time and Patient function might vary with factors such as time of day or concomitant medical conditions. For this reason, the final treatment plan for this patient should rest with their medical care team. Additional recommendations should be considered with the totality of the Patient in mind. Thank for the opportunity to participate in the care of this patient. If you have any questions about the content of this report, please contact the [facility]. Education: Education regarding findings from today's study and plans for therapy were provided to Patient only through Verbal Instruction. Understanding was expressed by the Patient only. Mail Weigher Clinician/Clinical Fellow: No Supervisory Statement: N/A Speech Language Pathologist: Dora Andre M.A., CCC-AUTO EMISSIONS TECHNICIAN
== END 2024-10-05 14:13 | disposition home or self-care (01) ==
LOC: HO.XRAY 14:12
PROVIDERS: Visit Provider Family Medicine
DX: R13.10 Dysphagia, unspecified (principal)
CPT/HCPCS: 74230; 92611

== ENCOUNTER → 2024-10-05 14:30 | Outpatient (BNV) | payer OTHER, SELFPAY | PROVIDERS: Visit Provider Physician Assistant Surgical | DX: R13.10 Dysphagia, unspecified (principal) | CPT/HCPCS: 74230 ==

== ENCOUNTER 2024-10-27 16:10 | Outpatient (AMB) | payer OTHER, SELFPAY ==
--- NOTE | 2024-10-27 16:12 | A.OFFVIS_ITS ---
Vital Signs 10/27/24 16:13 Height 5 ft 9 in Weight 151 lb BMI 22.3 BP 122/78 Blood Pressure Location Lt brachial Position Sitting Pulse 66 Intake Visit Reasons: 6 months follow up Intake Note: Patient in office today in follow up of diverticulitis. CC: Patient reports having upper GI symptoms. Per patient st started at the beginning of August after a significant vomiting episode. He reports trouble swallowing. Patient reports that he has to mechanically adjust his larynx and is also having acid reflux now. 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 Accompanied by: Self / Same As Patient Allergies amoxicillin Allergy (Mild, Verified 09/13/24 15:22) nausea, body aches, headaches, vomiting, body acheses morphine Adverse Reaction (Intermediate, Verified 09/13/24 15:22) nausea, vomiting HPI HPI 6 months follow up: Details: Assessment & Plan (1) Diverticulitis: Code(s): K57.92 - Diverticulitis of intestine, part unspecified, without perforation or abscess without bleeding Category: Medical (2) Tubular adenoma of colon: Comment: 06/2022= 3 TA's scope repeat 3 years Code(s): D12.6 - Benign neoplasm of colon, unspecified Category: Medical Plan He has continued to practice diet modification and has had no return of the pain and has not had to use the antibiotics I gave him. Stools are somewhat on the loose side but of course we do not want to attempt making them more formed as this could lead to constipation and may further precipitate diverticulitis attacks. He is agreeable to this. He is going to be due for colonoscopy in 2024 saw see him in 6 months and that will be what we discuss at her next visit. LABS none since 2022 TODAY'S VISIT He has new onset of dysphagia and acid reflux. Apparently this started after an episode of severe nausea and vomiting in August and since then he feels like he has to move his larynx so the side to swallow properly. We will get a barium swallow and since he is due for colonoscopy we will order an EGD/colonoscopy combination. We will also get an H pylori breath test and start him on a trial of pantoprazole. The there are no prior problems with anesthesia or sedation. He denies any cardiac or respiratory problems. There are no infectious disease problems. There is no known family history of colorectal cancer or polyps. [facility] Medical History (Updated 10/27/24 @ 16:21 by FRACISCO Garcia) Preop examination Pharyngitis Lumbar radiculopathy Right knee pain Impacted cerumen of both ears Upper back pain Abdominal pain Diverticulitis Intercostal muscle pain Atypical chest pain Right ankle swelling Heartburn Infection of finger Infection of fingernail Screening for prostate cancer Screening for colon cancer Adult wellness visit Adult general medical exam Viral illness Joint pain Low back pain Screening for prostate cancer Laboratory examination ordered as part of a routine general medical examination Bilateral hip pain GERD (gastroesophageal reflux disease) Lumbar spondylosis Elevated cholesterol Depression Anxiety Surgical History H/O colonoscopy H/O right knee surgery Family History (Updated 07/12/24 @ 16:25 by TORITO Morris) Paternal Aunt Colon cancer Mother Alzheimer dementia Social History Housing: House Alcohol intake: current Alcohol intake frequency: 0-2 drinks per day Alcohol type: beer Patient Tobacco Use Status: Never used Tobacco e-Cigarette/Vaping Use: Never Used Second Hand Smoke Exposure: No service: No Current occupational status: employed 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 Current occupational exposures/hazards: No Cognitive needs: No Hearing needs: No Vision needs: No Review of Systems Const Denies fatigue, Denies fever(s), Denies night sweats, Denies poor appetite and Denies weight loss Eyes Details: glasses Reports requires corrective lenses ENT Reports Normal hearing present, Denies dental pain, Reports dysphagia, Denies hearing loss, Denies mouth pain, Denies odynophagia, Denies throat swelling, Denies tongue swelling and Reports other (Dentition adequate) Card Reports no additional complaints Resp Reports no additional complaints GI Details: Denies abdominal pain, Denies melena, Denies bloating, Denies hematochezia, Denies constipation, Denies GI cramping, Reports dysphagia, Denies excessive flatus, Denies early satiety, Reports heartburn, Denies diarrhea, Denies nausea, Denies odynophagia, Denies vomiting and Denies hematemesis Skin/Breast Denies pruritus, Denies lesions, Denies rash and Denies jaundice Neuro Reports Normal hearing present and Denies Abnormal speech present Endo Denies fatigue Aller/Immun Denies throat swelling and Denies tongue swelling Physical Exam Vital Signs: Last Vital Signs Pulse 66 10/27/24 16:13 BP 122/78 10/27/24 16:13 BMI result Body Mass Index 22.3 Const General: cooperative, no acute distress, well developed and well groomed Nutritional Appearance: average body habitus and well nourished Orientation/consciousness: oriented to person, oriented to place and oriented to time Limitations: No language barrier HEENT Head: Yes normocephalic and Yes atraumatic Eyes General: appearance normal, both eyes and all related structures Pupils: Equal, round and reactive pupils present Neck Neck: Yes normal visual inspection and Yes no lymphadenopathy Thyroid: Thyroid normal Resp Effort & Inspection: normal respiratory effort and able to speak in complete sentences Auscultation: clear to auscultation bilaterally Cardio Rate: regular rate Rhythm: regular rhythm Heart sounds: Normal, physiologic split S2 sound present Peripheral pulses: radial pulses present and posterior tibial pulses present GI Inspection: No distended and No Abdominal panniculus present Palpation (GI): Soft to palpation, nontender, no guarding, not rigid and No hepatosplenomegaly present Percussion: Yes normal to percussion Auscultation: normal bowel sounds Rectal Exam - Male: Yes deferred Skin General skin exam: no rashes or lesions noted, turgor normal, skin not dry, no jaundice, No spider nevi and no striae Rashes: no rashes Nails: normal Neuro General: oriented to person, oriented to place and oriented to time Cranial nerves: Yes Equal, round and reactive pupils present and Yes Normal h earing present Speech: No Abnormal speech present Extrem General: Yes normal to inspection, No clubbing, No cyanosis and No edema Psych Appearance: grossly normal and well kempt Mental Status: mental status grossly normal Speech and movement: Normal speech and movement present Affect: normal affect Attitude: cooperative Thought process: Normal thought process present and not confabulating Thought content: Normal thought content present Insight: Fair insight present (Psych) Judgement: Fair judgement present (Psych) Assessment & Plan Assessment & Plan (1) Preop examination: Code(s): Z01.818 - Encounter for other preprocedural examination Category: Medical (2) Tubular adenoma of colon: Comment: 06/2022= 3 TA's scope repeat 3 years Code(s): D12.6 - Benign neoplasm of colon, unspecified Category: Medical (3) Dysphagia: Comment: Patient is neurologically intact, in no acute distress and managing secretions independently. Code(s): R13.10 - Dysphagia, unspecified Category: Medical Qualifiers: Dysphagia type: unspecified Qualified Code(s): R13.10 - Dysphagia, unspecified Plan He has new onset of dysphagia and acid reflux. Apparently this started after an episode of severe nausea and vomiting in August and since then he feels like he has to move his larynx so the side to swallow properly. We will get a barium swallow and since he is due for colonoscopy we will order an EGD/colonoscopy combination. We will also get an H pylori breath test and start him on a trial of pantoprazole. The there are no prior problems with anesthesia or sedation. He denies any cardiac or respiratory problems. There are no infectious disease problems. There is no known family history of colorectal cancer or polyps. Orders: Orders Comprehensive Met. Panel Today D12.6 - Benign neoplasm of colon, unspecified, Z01.818 - Encounter for other preprocedural examination H Pylori Breath Test Today Complete Blood Count Auto Diff Today D12.6 - Benign neoplasm of colon, unspecified, Z01.818 - Encounter for other preprocedural examination EGD/[place] Combo - GI Use Only Today D12.6 - Benign neoplasm of colon, unspecified, R13.10 - Dysphagia, unspecified, Z01.818 - Encounter for other preprocedural examination Medications: New pantoprazole (Protonix) 40 mg PO DAILY 30 days 30 tabs 1RF sodium,potassium,mag sulfates 17.5-3.13-1.6 gram (Suprep Bowel Prep Kit) 480 mL orally; FOR COLONOSCOPY PREP 354 mL 0RF Coding Level of Care Code Est Pt Level 4 (16068) Diagnoses Preop examination Z01.818 Tubular adenoma of colon D12.6 Dysphagia, unspecified type R13.10 Dysphagia type: unspecified Time Spent (min) 37
[2024-10-27 16:13] VITALS: BP 122/78; PULSE 66; BMI 22.3
== END 2024-10-27 16:52 | disposition home or self-care (01) ==
LOC: HO.HGI 16:10
PROVIDERS: PCP Family Medicine; Visit Provider Nurse Practitioner
DX: R13.10 Dysphagia, unspecified (principal); Z12.11 Encounter for screening for malignant neoplasm of colon; Z86.0101 Personal history of adenomatous and serrated colon polyps
CPT/HCPCS: 99214

== ENCOUNTER 2024-10-27 16:10 | Outpatient (REF) | payer OTHER, SELFPAY ==
[2024-10-27 16:58] LABS: MANUAL DIFF FLAG NO
[2024-10-27 17:08] LABS: Basophils Percent Auto 0.4 % (0-2); Eosinophils Absolute Auto 0.3 X10*3/uL (0.0-0.4); Eosinophils Percent Auto 3.7 % (0-4); Hematocrit 46.8 % (42.0-52.0); Hemoglobin 15.6 g/dl (14.0-18.0); Imm Gran Abs Auto 0.02 X10*3/uL (0.00-0.03); Imm Gran Pct Auto 0.3 % (0.0-0.4); Lymphocytes Absolute Auto 1.6 X10*3/uL (1.2-4.9); Mean Corpuscular HGB Conc 33.3 g/dl (31.0-36.0); Mean Corpuscular Hemoglobin 30.5 pg (27.0-33.0); Mean Corpuscular Volume 91.6 fL (80.0-98.0); Monocytes Absolute Auto 0.5 X10*3/uL (0.1-1.2); Monocytes Percent Auto 6.6 % (2-11); Neutrophils Absolute Auto 4.4 x10*3/uL (2.0-8.3); Platelet Count 279 X10*3/uL (160-400); Red Blood Count 5.11 X10*6/uL (4.60-5.80); Red Cell Distribution Width 12.4 % (11.0-16.0); White Blood Count 6.8 X10*3/uL (4.8-10.8)
[2024-10-27 17:36] LABS: Alanine Aminotransferase 28 U/L (0-40); Albumin Level 4.4 g/dL (3.5-5.0); Alkaline Phosphatase 63 U/L (39-117); Anion Gap 9 (12-20); Aspartate Amino Transferase 26 U/L (5-37); Bilirubin Total 0.5 mg/dL (0.0-1.0); Blood Urea Nitrogen 10 mg/dL (9-16); Calcium 9.5 mg/dL (8.4-10.2); Carbon Dioxide 30 mmol/L (22-29); Chloride 106 mmol/L (96-108); Estimated Glomerular Filt Rate > 60; Glucose Random 106 mg/dL (60-115); Potassium 4.2 mmol/L (3.3-5.1); Sodium 141 mmol/L (135-145); Total Protein 7.2 g/dL (6.5-8.0)
[2024-10-29 11:48] LABS: H Pylori Breath Test Negative (Negative)
== END 2024-10-27 16:11 | disposition home or self-care (01) ==
LOC: HO.LAB 16:10
PROVIDERS: PCP Family Medicine; Visit Provider Nurse Practitioner
DX: Z01.818 Encounter for other preprocedural examination (principal); D12.6 Benign neoplasm of colon, unspecified; R13.10 Dysphagia, unspecified
CPT/HCPCS: 36415; 80053; 83013; 85025; 99212

== ENCOUNTER 2025-01-04 07:23 | Day surgery (SDC) | payer OTHER, SELFPAY ==
--- OUTSIDE RECORDS SUMMARY | 2024-12-20 14:12 | XMS_ITS | Data Portability ---
Author Organization [facility] Pain Managem ent, PAIN OFFICE Address [address] [facility] [facility] [address] [place] [address] Care Team Providers [place] Wellness Coordinator Name Role Phone Dodie ALMONTE Referring Provider [phone] CHAZ LAWRENCE Primary Care Provider Assessment Encounter Date Assessment Date Assessment LastModified by Organization Details LastModified Time 02/09/2024 02/09/2024 Ha Fletcher is a 48 [...] same after insurance approval. He needs a rolloff driver on the day of the procedure. [...] same after insurance approval. He needs a rolloff driver on the day of the procedure. [email or web address] Not available 09/30/2024 10:16:43 11/08/2024 11/08/2024 Ha Fletcher is a 49 year old [...] follow up as needed. [email or web address] Not available 11/08/2024 14:49:05 Plan of Treatment Reminders Order Date Submit Date Provider Last Modified By Organization Details Last Modified Time Details Appointments RETURN 2024 03:00P M Ly castorena MD Not available Not available Not available Lab None recorded . Referral None recorded . Procedures None recorded . Surgeries None recorded . Imaging None recorded . Medication Orders None recorded . Patient TargetsNo targets recorded. Patient Instructions Encounter Date Encounter Id Patient Instructions Last Modified By Organization Details Last Modified Time 02/09/2024 [id number] He was advised against bed rest lasting longer than four days and to continue activities as tolerated. [email or web address] Not available 02/09/2024 08:51:38 05/13/2024 [id number] He was advised against bed rest lasting longer than four days and to continue activities as tolerated. [email or web address] Not available 05/13/2024 10:12:30 06/23/2024 [id number] He was advised against bed rest lasting longer than four days and to continue activities as tolerated. [email or web address] Not available 06/23/2024 15:22:58 09/30/2024 [id number] He was advised against bed rest lasting longer than four days and to continue activities as tolerated. [email or web address] Not available 09/30/2024 10:15:48 11/08/2024 [id number] He was advised against bed rest lasting longer than four days and to continue activities as tolerated. [email or web address] Not available 11/08/2024 14:47:50 Reason for Referral None Reported. Problems Name Problem SNOMED Code Status Onset Date Resolution Date Notes Provider Name and Address Organization Details Recorded Time Degeneratio n of lumbar interverteb ral disc 27089260 Active 2021 Ly castorena MD [address] , [address], [facility] [place], [address], [facility] 2 10:47:32 Lumbar spondylolis thesis 0652598325187 02 Active Ly castorena MD [address] , [address], [place], [address], [place] [facility] 11:18:37 Lumbar radiculopat hy 849513498 Active Ly castorena MD [address] , [address], [place], [address], [place] [facility] 11:18:50 Problem Notes None recorded. Procedures Surgical History Date Name Laterality Status Provider Name and Address Organization Details Recorded Time 11/09/19 25 Lumbar Epidural steroid injection under fluoroscopic guidance completed Ly Webb MD [address] , [address], [place], [address], [place] [facility] 11/08/2024 14:48:35 06/23/20 24 Lumbar Epidural steroid injection under fluoroscopic guidance completed Ly Webb MD [address] , [address], [place], [address], [place] [facility] 06/23/2024 15:23:41 02/09/20 24 Lumbar Epidural steroid injection under fluoroscopic guidance completed Ly Webb MD [address] , [address], [place], [address], [place] [facility] 02/09/2024 08:52:21 09/17/19 24 Lumbar Epidural steroid injection under fluoroscopic guidance completed Ly Webb MD [address] , [address], [place], [address], [place] [facility] 09/17/2023 09:47:48 11/27/19 23 Lumbar Epidural steroid injection under fluoroscopic guidance completed Ly Webb MD [address] , [address], [place], [address], [place] [facility] 11/26/2022 13:45:55 09/24/19 23 Lumbar Epidural steroid injection under fluoroscopic guidance completed Ly Webb MD [address] , [address], [place], [address], [place] [facility] 09/24/2022 14:42:40 Knee Surgery completed Ly Webb MD [address] [facility] , [address], [place], [address], [facility] 07/24/2022 10:51:49 Imaging Results None recorded. Procedure Notes None recorded. Medical Equipment None Reported. Allergies Allergen ID Allergen Name Allergen Category Reaction Reaction Severity Criticality Documentation Date Start Date Code Code System Note Provider Name and Address Organization Details Recorded Time morphine medicatio n nausea mild Not available 07/24/2022 7052 RxNorm Ly castorena MD [address] [facility] , [address], [place], [address], [facility] 2 10:45:38 amoxicill in medicatio n nausea moderate low 07/30/2023 723 RxNorm Eridoug saini, [place] [facility] 3 10:19:36 Medications Name Sig [...] completed Not Available Not Available Not Available pantoprazol e 40 mg tablet,stephanie yed release TAKE 1 TABLET BY MOUTH DAILY active Not Available Not Available No t Available gabapentin 300 mg capsule TAKE 1 [...] completed Not Available Not Available Not Available Suprep Bowel Prep Kit 17.5 gram-3.13 gram-1.6 gram oral solution 480 ML ORALLY FOR COLONOSCO PY PREP active Not Available Not Available No t Available Paxlovid 300 mg (150 mg x [...] % 125 mm[Hg] 75 mm[Hg] Maryanne Vargas [place] [facility] 4 08:33:27 Date Recorded Body height Heart rate Oxygen saturation Oxygen saturation in Arterial blood by Pulse oximetry Body mass index (BMI) Body weight Systolic blood pressure Diastolic blood pressure Provider Name and Address Organization Details Last Updated DateTime 4 177.8 cm 69 /min 98 % 98 % 22 kg/m2 85385.6 3 g 114 mm[Hg] 78 mm[Hg] Ly castorena MD [address] , [address], [place], [address], [place] [facility] 4 09:57:28 Date Recorded Body height Oxygen saturation Oxygen saturation in Arterial blood by Pulse oximetry Heart rate Systolic blood pressure Diastolic blood pressure Provider Name and Address Organization Details Last Updated DateTime 4 177.8 cm 96 % 96 % 74 /min 106 mm[Hg] 70 mm[Hg] Stephanie corbett [place] - [facility] 4 14:59:16 Date Recorded Body height Heart rate Oxygen saturation Oxygen saturation in Arterial blood by Pulse oximetry Body mass index (BMI) Body weight Systolic blood pressure Diastolic blood pressure Provider Name and Address Organization Details Last Updated DateTime 5 177.8 cm 68 /min 100 % 100 % 21.5 kg/m2 89104.8 6 g 125 mm[Hg] 79 mm[Hg] Ly castorena MD [address] , [address], [place], [address], [place] [facility] 5 10:05:18 Date Recorded Body height Heart rate Oxygen saturation Oxygen saturation in Arterial blood by Pulse oximetry Systolic blood pressure Diastolic blood pressure Provider Name and Address Organization Details Last Updated DateTime 5 177.8 cm 70 /min 98 % 98 % 108 mm[Hg] 73 mm[Hg] Maryanne Vargas [place] [facility] 5 14:28:20 Social History Question Answer Notes LastModified by Organizat ion Details LastModified Time Tobacco Smoking Status Never Smoker Ly Webb MD [address] , [address], [place], [address], [place] [facility] 07/24/2022 10:50:54 Are You Blind Or Do You Have Difficulty Seeing? No Information not available 07/24/2022 Are You Deaf Or Do You Have Serious Difficulty Hearing? No Information not available 07/24/2022 What Is The Highest Grade Or Level Of School You Have Completed Or The Highest Degree You Have Received? [id number] [place] Information not available 07/24/2022 What Is Your Relationship Status? Other Engaged Information not available 07/24/2022 Do You Have Difficulty Walking Or Climbing Stairs? Yes Information not available 07/24/2022 Sex: Unknown Functional Status Question Answer Note LastModified by Organizat ion Details LastModified Time Do you use any illicit or recreational drugs? No cannabis - medical for anxiety Information not available 07/24/2022 What is your level of alcohol consumption? Occasional Information not available 07/24/2022 Are you currently employed? Yes Information not available 07/24/2022 Do you have difficulty doing errands alone? 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[employer] Information not available 07/24/2022 Do you have [...] SNOMED-CT Code Diagnosis ICD10 Code Diagnosis Note [id number] Ly Webb MD PAIN OFFICE [address] [facility] [place] [address] 07/24/2022 10:11:09 07/24/2022 11:30:11 Degeneration of lumbar intervertebral disc 35617220 M51.36 Lumbar radiculopathy 128 727732 M54.16 [id number] Ly Webb MD PAIN OFFICE [address] [place] [address] 09/24/2022 14:01:38 09/24/2022 15:09:25 Degeneration of lumbar intervertebral disc 62326351 M51.36 Lumbar radiculopathy 128 034504 M54.16 [id number] Ly Webb MD PAIN OFFICE [address] [place] [address] 10/31/2022 10:44:39 10/31/2022 11:00:47 Degeneration of lumbar intervertebral disc 22820771 M51.36 Lumbar radiculopathy 128 613978 M54.16 [id number] Ly Webb MD [facility] PA[facility] [address] [place] [address] 11/26/2022 13:26:08 11/26/2022 13:51:19 Degeneration of lumbar intervertebral disc 12700493 M51.36 Lumbar radiculopathy 128 072736 M54.16 [id number] Ly Webb MD PAIN OFFICE [address] [place] [address] 07/30/2023 10:15:10 07/30/2023 10:51:10 Lumbar radiculopathy 261335901 M54.16 Degenerati on of lumbar intervertebral disc 87550581 M51.36 [id number] Ly Webb MD PAIN OFFICE [address] [facility] [place] [address] 09/17/2023 09:16:29 09/17/2023 10:28:40 Degeneration of lumbar intervertebral disc 43024743 M51.36 Lumbar radiculopathy 128 153123 M54.16 [id number] Ly Webb MD [facility] PA[facility] OFF[facility] [address] [facility] [place] [address] 12/17/2023 13:26:00 12/17/2023 13:59:05 Lumbar radiculopathy 649979446 M54.16 Degenerati on of lumbar intervertebral disc 11982967 M51.36 [id number] Ly Webb MD PAIN OFFICE [address] [place] [address] 02/09/2024 08:17:18 02/09/2024 11:29:16 Lumbar radiculopathy 894643853 M54.16 Lumbar spondylolisthesis 3755483142 52256 M43.16 Degenerati on of lumbar intervertebral disc 53066526 M51.36 [id number] Ly Webb MD PAIN OFFICE [address] [facility] [place] [address] 05/13/2024 09:52:03 05/13/2024 10:16:43 Lumbar radiculopathy 534439749 M54.16 Lumbar spondylolisthesis 8157465212 39114 M43.16 Degenerati on of lumbar intervertebral disc 47880670 M51.362 [id number] Ly Webb MD PAIN OFFICE [address] [facility] [place] [address] 06/23/2024 14:50:17 06/23/2024 15:28:41 Lumbar spondylolisthesis 5694016541 10830 M43.16 Lumbar radiculopathy 128 455462 M54.16 Degenerati on of lumbar intervertebral disc 94400274 M51.362 [id number] Ly Webb MD PAIN OFFICE [address] [facility] [place] [address] 09/30/2024 09:57:20 09/30/2024 10:18:01 Lumbar radiculopathy 779343563 M54.16 Lumbar spondylolisthesis 8499797310 86165 M43.16 Degenerati on of lumbar intervertebral disc 46616711 M51.362 [id number] Ly Webb MD [facility] PA[facility] OFF[facility] [address] [facility] [place] [address] 11/08/2024 14:22:57 11/08/2024 16:47:38 Lumbar spondylolisthesis 8690111666 66656 M43.16 Degenerati on of lumbar intervertebral disc 51053312 M51.362 Lumbar radiculopathy 128 965228 M54.16 Health Concerns Section Related Observation LastModified by Organization Detai ls LastModified Time None Recorded Concern Status LastModified by Organization Details LastModified Time None Recorded Advance Directives Directive None Recorded Payers Encounter Date Sequence Insurance Name Policy Number Policy Ceja Covered Member ID Ceja Member ID Guarantor Name 02/09/2024 1 [facility] (MEDICAID HMO) MATA Fletcher [id number] Ha Fletcher 05/13/2024 1 [facility] PLAN (MEDICAID HMO) MATA Fletcher [id number] Ha Fletcher 06/23/2024 1 [facility] PLAN (MEDICAID HMO) MATA Loomis Justine [id number] Ha Fletcher 09/30/2024 1 [facility] PLAN (MEDICAID HMO) MATA Fletcher [id number] Ha Fletcher 11/08/2024 1 [facility] PLAN (MEDICAID HMO) MATA Fletcher [id number] Ha Fletcher Notes Date Note Type Note Provider Name and Address Organization Details Recorded Time 02/09/2024 text/html He is here today for a lumbar epidural steroid injection under fluoroscopic guidance. He has seen Dr. Stevie Ohara and he does not recommend surgery at time. Ly Webb MD [address] [place] [address] , [address], [place], [address], [place] [facility] 02/09/2024 15:29:22 05/13/2024 text/html Ha [...] some pain benefit Ly Webb MD [address] [facility] , [address], [place], [address], [facility] 05/13/2024 10:27:18 06/23/2024 text/html He is here today for a lumbar epidural steroid injection under fluoroscopic guidance. He has seen Dr. Stevie Ohara and he does not recommend surgery at time. Ly Webb MD [address] [facility] , [address], [place], [address], [facility] 06/23/2024 15:34:49 09/30/2024 text/html [...] some pain benefit Ly Webb MD [address] [facility] , [address], [place], [address], [facility] 09/30/2024 10:56:28 11/08/2024 text/html He is here today for a lumbar epidural steroid injection under fluoroscopic guidance. Ly Webb MD [address] [facility] , [address], [place], [address], [facility] Pain Management 11/08/2024 16:52:38
[2025-01-02 15:42] VITALS: BMI 22.3
--- NOTE | 2025-01-03 09:45 | HO.ANESPROP2 ---
Documented by User: Ruby Rodriguez NP 01/03/25 09:45 HPI - Anesthesia Eval Consult details Narrative: 49yo M for Upper Endoscopy and Colonoscopy [facility] Active Problems Active Problems: All Active Problems Preop examination (Acute) Dysphagia (Acute) Bilateral knee pain (Acute) Injury of left knee (Acute) Left knee pain (Acute) Injury of knee, right (Acute) Instability of right knee joint (Acute) Arthritis of right knee (Acute) Difficulty sleeping (Acute) Suprapubic pain (Acute) Swollen lymph nodes (Acute) Subconjunctival hematoma (Acute) Tubular adenoma of colon (Acute) Anxiety (Acute) Elevated fasting blood sugar (Acute) Hyperlipidemia (Acute) Testicular pain (Acute) Mixed hyperlipidemia (Acute) Bilateral hip pain (Acute) Spondylosis without myelopathy or radiculopathy, lumbar region (Acute) Past Medical History Medical History Pharyngitis Adult wellness visit Right knee pain Lumbar radiculopathy Upper back pain Diverticulitis Abdominal pain Impacted cerumen of both ears Infection of fingernail Infection of finger Bilateral hip pain GERD (gastroesophageal reflux disease) Lumbar spondylosis Elevated cholesterol Preop examination Screening for prostate cancer Low back pain Joint pain Intercostal muscle pain Viral illness Adult general medical exam Screening for colon cancer Atypical chest pain Screening for prostate cancer Laboratory examination ordered as part of a routine general medical examination Heartburn Right ankle swelling Depression Anxiety Family History Family History Paternal Aunt Colon cancer Mother Alzheimer dementia Family history of problems with anesthesia: No Surgical History Surgical History H/O colonoscopy H/O right knee surgery History of Problems with Anesthesia: No Social History Social History Housing: House Alcohol intake: current Alcohol intake frequency: 0-2 drinks per day Alcohol type: beer Patient Tobacco Use Status: Never used Tobacco e-Cigarette/Vaping Use: Never Used Second Hand Smoke Exposure: No Use of substances other than those prescribed or required for medical reasons: Yes Are you DNR?: No Advance Directives: No Advance Directives Information Provided: Yes Poor oral hygiene: No service: No Current occupational status: employed 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 Current occupational exposures/hazards: No Cognitive needs: No Hearing needs: No Vision needs: No Meds Allergies Allergy/AdvReac Type Severity Reaction Status Date / Time amoxicillin Allergy Mild nausea, Verified 09/13/24 15:22 body aches, headaches, vomiting, body acheses morphine AdvReac Intermediate nausea, Verified 09/13/24 15:22 vomiting Home Medications ?Medication ?Instructions ?Recorded ?Confirmed ?Last Taken ?Type lorazepam 0.5 mg tablet 0.5 mg PO DAILY PRN anxiety 07/01/23 Unknown History ibuprofen 200 mg tablet 400 mg PO Q6H PRN 08/12/23 Unknown History gabapentin 300 mg capsule 300 mg PO TID PRN 10/27/24 Unknown History trazodone 50 mg tablet 25 mg PO BEDTIME PRN sleep 10/27/24 Unknown History Exam Height,Weight and Vital Signs: Height 5 ft 9 in Weight 68.492 kg Assessment and Plan Assessment Anesthesia Assessment: Chart Reviewed Final Anesthetic Review Family History of Problems with Anesthesia: No History of Problems with Anesthesia: No Documented by User: Chata Siddiqi MD 01/04/25 08:29 [facility] Past Medical History Medical History Pharyngitis Adult wellness visit Right knee pain Lumbar radiculopathy Upper back pain Diverticulitis Abdominal pain Impacted cerumen of both ears Infection of fingernail Infection of finger Bilateral hip pain GERD (gastroesophageal reflux disease) Lumbar spondylosis Elevated cholesterol Preop examination Screening for prostate cancer Low back pain Joint pain Intercostal muscle pain Viral illness Adult general medical exam Screening for colon cancer Atypical chest pain Screening for prostate cancer Laboratory examination ordered as part of a routine general medical examination Heartburn Right ankle swelling Depression Anxiety Family History Family History Paternal Aunt Colon cancer Mother Alzheimer dementia Surgical History Surgical History H/O colonoscopy H/O right knee surgery Social History Social History Housing: House Alcohol intake: current Alcohol intake frequency: 0-2 drinks per day Alcohol type: beer Patient Tobacco Use Status: Never used Tobacco e-Cigarette/Vaping Use: Never Used Second Hand Smoke Exposure: No Use of substances other than those prescribed or required for medical reasons: Yes Are you DNR?: No Advance Directives: No Advance Directives Information Provided: Yes Poor oral hygiene: No service: No Current occupational status: employed 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 Current occupational exposures/hazards: No Cognitive needs: No Hearing needs: No Vision needs: No Meds Allergies Allergy/AdvReac Type Severity Reaction Status Date / Time amoxicillin Allergy Mild nausea, Verified 09/13/24 15:22 body aches, headaches, vomiting, body acheses morphine AdvReac Intermediate nausea, Verified 09/13/24 15:22 vomiting Home Medications ?Medication ?Instructions ?Recorded ?Confirmed ?Last Taken ?Type lorazepam 0.5 mg tablet 0.5 mg PO DAILY PRN anxiety 07/01/23 Unknown History ibuprofen 200 mg tablet 400 mg PO Q6H PRN 08/12/23 Unknown History gabapentin 300 mg capsule 300 mg PO TID PRN 10/27/24 Unknown History trazodone 50 mg tablet 25 mg PO BEDTIME PRN sleep 10/27/24 Unknown History Exam Airway Mallampati Class: II TM Dist: >3cm Neck ROM: Full Heart: rrr Lungs: cta Assessment and Plan Assessment Anesthesia Assessment: Anesthesia Plan Discussed Final Anesthetic Review NPO: Yes ASA Class: III Final Preanesthetic Review: No Changes in Pt Med Stat, Meds/Allgs Chart Reviewed, Consent Obtained/Reviewed and Anes Risks/Benef Reviewed Patient Risk: Intermediate Procedure Risk: Low Anesthetic Plan Anesthetic Plan: MAC: Disposition: Standard PACU
[2025-01-04 07:32] VITALS: BMI 20.7
[2025-01-04 07:46] VITALS: BP 127/80; PULSE 79; RESP 16; TEMP 36.4; O2SAT 97
[2025-01-04] MEDS: Lactated Ringers 1,000 ML 100 ML IVCONT (07:55)
--- NOTE | 2025-01-04 08:36 | MHC.SHP ---
Pre-Procedural Eval Section A - 24 Hr Update-Section A only Date of Service: 01/04/25 Section B - Complete if H&P > 30 days Chief Complaint: Encounter for screening for malignant neoplasm of Relevant Family History (Specify if Yes): No Relevant Social History: Other (specify) Present Medications: see Short Stay Collaborative assessment Medical History: Significant History (Pharyngitis Adult wellness visit Right knee pain Lumbar radiculopathy Upper back pain Diverticulitis Abdominal pain Impacted cerumen of both ears Infection of fingernail Infection of finger Bilateral hip pain GERD (gastroesophageal reflux disease) Lumbar spondylosis Elevated cholesterol Preop examin) History of Previous Operations: Relevant previous surgery/procedure and date(s) (H/O colonoscopy H/O right knee surgery) Allergies: Allergies Allergy/AdvReac Type Severity Reaction Status Date / Time amoxicillin Allergy Mild nausea, Verified 09/13/24 15:22 body aches, headaches, vomiting, body acheses morphine AdvReac Intermediate nausea, Verified 09/13/24 15:22 vomiting Review of Systems Sugical H&P ROS: Negative: Constitution, Cardiovascular, Respiratory, Neurological, Psychiatric, Hem-Onc, Allergic/Immunologic, Gastrointestinal, Genitourinary, Musculoskeletal, Integumentary, Endocrine and Eyes/Ears/Nose/Throat Exam Surgical H&P Exam: Normal: HEENT, Normal: Heart, Normal: Lungs, Normal: Extremities, Normal: Abdomen, Normal: Skin and Normal: Neurological Plan Diagnosis/Plan: Unchanged I have reviewed the history and physical and performed a pertinent physical examination on my patient. No changes have occurred unless specified. Time Spent With Patient Time: Total time managing care of this patient today ____ minutes.
--- NOTE | 2025-01-04 09:53 | HO.OPN-COLON ---
Colonoscopy Operative Note Operative Note Date of Service: 01/04/25 Narrative: Operative Information Procedure Description: EGD, Colonoscopy Indication: dysphagia, Screening Anesthesia: MAC FLEXIBLE TRANSORAL UPPER GASTROINTESTINAL ENDOSCOPY AND COLONOSCOPY PROCEDURE NOTE UPPER ENDOSCOPY Consent: Indications for the procedure and potential complications of bleeding, perforation, reaction to medications and missed diagnosis were discussed with the patient and informed consent was obtained. Instrument: Olympus GIF H 190 J mid size upper endoscope Monitoring: Vital signs and clinical assessment, continuous EKG monitoring, Pulse oximetry, Carbon Dioxide monitoring and blood pressure monitoring were done throughout the procedure. Procedure: The patient was placed in the left lateral decubitis position and pre-procedure medications were administered and a bite block was placed. The endoscope was inserted into the mouth and advanced under direct vision to the third part of duodenum. A careful inspection was made as the upper endoscope was withdrawn including a retroflexed examination of the proximal stomach; Findings and interventions are described below. Findings: Larynx:normal Esophagus: GE junction at 42 cm, diaphragm hiatus at 42 cm, bx taken from GEJ, distal and proxiaml esophagus, balloon dilation done to 20 mm at LES and UES, no tears seen Stomach: patchy erythema with few erosions. Biopsies were obtained. Grade 2 flap valve on retroflexed examination of the cardia. Duodenum: bulbar duodenitis, bx taken Intervention: Biopsies as noted above, balloon dilation COLONOSCOPY Instrument: Olympus variable stiffness pediatric scope 190L Colonoscopy Monitoring: Vital signs and clinical assessment, continuous EKG monitoring, Pulse oximetry, Carbon Dioxide monitoring and blood pressure monitoring were done throughout the procedure. Colon withdrawal time was 15 minutes. Procedure: The patient was placed in the left lateral decubitis position and pre-procedure medications were administered. After a digital rectal examination of the ano-rectum, the video colonoscope was inserted into the rectum and advanced through the colon to the cecum/TI. The colonoscope was slowly withdrawn in a retrograde panoramic fashion and the colon mucosa was carefully examined including a retroflexed view of the rectum. Findings and interventions are described below. Procedure Difficulty: easy Findings: Terminal Ileum-normal Cecum:normal Right sided retroflexion- normal Ascending Colon: normal Transverse Colon -normal Descending Colon:normal Sigmoid Colon: at about 42 cm pedunculated polyp noted 10-12 mm, injected with epinephrine and removed with cold snare with one clip applied to stalk Rectum: Retroflexion with small internal hemorrhoids, grade I Anorectum - normal Colon preparation: [place] Bowel Preparation Scale Right colon; 2 Transverse colon: 2 Left colon; 2 (0 = Unprepared colon segment with mucosa not seen due to solid stool that cannot be cleared. 1 = Portion of mucosa of the colon segment seen, but other areas of the colon segment not well seen due to staining, residual stool and/or opaque liquid. 2 = Minor amount of residual staining, small fragments of stool and/or opaque liquid, but mucosa of colon segment seen well. 3 = Entire mucosa of colon segment seen well with no residual staining, small fragments of stool or opaque liquid) Impression and Post Procedure Diagnosis: Endoscopy Findings: duodenitis erosive gastritis Colonoscopy Findings: colon polyp internal hemorrhoids Plan: Await Pathology results Repeat Colonoscopy in 3 years due to polyp or earlier if clinically indicated High fiber diet leaflet avoid straining at stool, epsom salts and sitz bath, anusol supps or cream cut back on nsaids if taking Above findings were reviewed with the patient and relevant handouts were provided if indicated.
[2025-01-04 09:59] VITALS: BP 111/72; PULSE 87; RESP 18; TEMP 36.1; O2SAT 91
[2025-01-04 10:14] VITALS: BP 123/84; PULSE 76; RESP 16; TEMP 36.1; O2SAT 98
== END 2025-01-04 10:40 | disposition home or self-care (01) ==
PROVIDERS: PCP Family Medicine; Visit Provider Internal Medicine Gastroenterology
PROC: (CPT 45385; principal; 2025-01-04 08:30)
DX: Z12.11 Encounter for screening for malignant neoplasm of colon (principal); Z86.0101 Personal history of adenomatous and serrated colon polyps; D12.5 Benign neoplasm of sigmoid colon; K64.0 First degree hemorrhoids; R13.10 Dysphagia, unspecified; K21.9 Gastro-esophageal reflux disease without esophagitis; K29.60 Other gastritis without bleeding; K29.80 Duodenitis without bleeding; K44.9 Diaphragmatic hernia without obstruction or gangrene; R73.01 Impaired fasting glucose; E78.00 Pure hypercholesterolemia, unspecified; Z87.19 Personal history of other diseases of the digestive system; B34.9 Viral infection, unspecified; F32.A Depression, unspecified; F41.9 Anxiety disorder, unspecified; Z88.1 Allergy status to other antibiotic agents; Z88.5 Allergy status to narcotic agent; Z98.890 Other specified postprocedural states
CPT/HCPCS: 45385; 45381; 43249; 43239; 88300; 88305; 88313; 88342; C1726; J0171; J2003; J2704; J3010

== ENCOUNTER → 2025-01-04 07:23 | Outpatient (BNV) | payer OTHER, SELFPAY | PROVIDERS: PCP Family Medicine; Visit Provider Internal Medicine Gastroenterology | DX: Z12.11 Encounter for screening for malignant neoplasm of colon (principal); D12.5 Benign neoplasm of sigmoid colon; K64.0 First degree hemorrhoids; R13.10 Dysphagia, unspecified; K25.9 Gastric ulcer, unspecified as acute or chronic, without hemorrhage or perforation; K29.80 Duodenitis without bleeding | CPT/HCPCS: 43239; 43249; 45381; 45385 ==

== ENCOUNTER 2025-01-17 11:35 | Outpatient (REF) | payer OTHER, SELFPAY ==
--- NOTE | ~2025-01-17 | XR_ITS ---
EXAMINATION: XR CHEST CLINICAL INFORMATION: R52 - Pain, unspecified COMPARISON: None available. TECHNIQUE: 2 views of the chest were obtained. FINDINGS: Heart size is within normal limits. Mediastinal and hilar structures are unremarkable. Lungs are clear and well expanded. There is no sign of pleural effusion. Osseous structures are unremarkable. XR/XR chest 2V IMPRESSION: No acute disease. Electronically signed by: Rob Oleary MD 01/17/2025 01:13 PM EDT
== END 2025-01-17 11:36 | disposition home or self-care (01) ==
LOC: HO.XRAY 11:35
PROVIDERS: PCP Family Medicine; Visit Provider Nurse Practitioner
DX: R10.11 Right upper quadrant pain (principal); K29.60 Other gastritis without bleeding; D12.6 Benign neoplasm of colon, unspecified; R05.9 Cough, unspecified
CPT/HCPCS: 71046; 99212

== ENCOUNTER 2025-01-17 11:35 | Outpatient (AMB) | payer OTHER, SELFPAY ==
--- NOTE | 2025-01-17 11:38 | MHC.OFFVIS ---
Vital Signs 01/17/25 11:49 Height 5 ft 10 in Weight 145 lb BMI 20.8 BP 116/74 Blood Pressure Location Rt brachial Position Sitting Pulse 70 Pulse Source Pulse Oximeter Pulse Oximetry (%) 97 Oxygen Delivery Method Room Air Intake Visit Reasons: s/p double Jara Intake Note: Est pt for mgmt of GERD w/ dysphagia. S/P duo w/ Jara CC; C.O. R sided thoracic / RUQ pain. Pt states that he also associates this presentation with a tingling sensation in his lungs. Pt states that he experiences these sx throughout most days intermittently. Pt has D/C'd his pantoprazole on account of not feeling that he needed it because he was not having heart burn. 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 Accompanied by: Self / Same As Patient Allergies amoxicillin Allergy (Mild, Verified 01/17/25 11:45) nausea, body aches, headaches, vomiting, body acheses morphine Adverse Reaction (Intermediate, Verified 01/17/25 11:45) nausea, vomiting HPI HPI s/p double Jara: Details: Assessment & Plan (1) Preop examination: Code(s): Z01.818 - Encounter for other preprocedural examination Category: Medical (2) Tubular adenoma of colon: Comment: 06/2022= 3 TA's scope repeat 3 years Code(s): D12.6 - Benign neoplasm of colon, unspecified Category: Medical (3) Dysphagia: Comment: Patient is neurologically intact, in no acute distress and managing secretions independently. Code(s): R13.10 - Dysphagia, unspecified Category: Medical Qualifiers: Dysphagia type: unspecified Qualified Code(s): R13.10 - Dysphagia, unspecified Plan He has new onset of dysphagia and acid reflux. Apparently this started after an episode of severe nausea and vomiting in August and since then he feels like he has to move his larynx so the side to swallow properly. We will get a barium swallow and since he is due for colonoscopy we will order an EGD/colonoscopy combination. We will also get an H pylori breath test and start him on a trial of pantoprazole. The there are no prior problems with anesthesia or sedation. He denies any cardiac or respiratory problems. There are no infectious disease problems. There is no known family history of colorectal cancer or polyps. Orders: Orders Comprehensive Met. Panel Today D12.6 - Benign neoplasm of colon, unspecified, Z01.818 - Encounter for other preprocedural examination H Pylori Breath Test Today Complete Blood Count Auto Diff Today D12.6 - Benign neoplasm of colon, unspecified, Z01.818 - Encounter for other preprocedural examination EGD/[place] [facility] - GI Use Only Today D12.6 - Benign neoplasm of colon, unspecified, R13.10 - Dysphagia, unspecified, Z01.818 - Encounter for other preprocedural examination Medications: New pantoprazole (Protonix) 40 mg PO DAILY 30 days 30 tabs 1RF sodium,potassium,mag sulfates 17.5-3.13-1.6 gram (Suprep Bowel Prep Kit) 480 mL orally; FOR COLONOSCOPY PREP 354 mL 0RF LABS: Laboratory Tests 10/27/24 10/27/24 16:47 16:57 WBC 6.8 Hgb 15.6 Hct 46.8 Plt Count 279 Estimated GFR > 60 Total Bilirubin 0.5 AST 26 ALT 28 Alkaline Phosphatase 63 H. pylori Breath Test Negative EGD/COLONOSCOPY 01/04/25 indings: Larynx:normal Esophagus: GE junction at 42 cm, diaphragm hiatus at 42 cm, bx taken from GEJ, distal and proxiaml esophagus, balloon dilation done to 20 mm at LES and UES, no tears seen Stomach: patchy erythema with few erosions. Biopsies were obtained. Grade 2 flap valve on retroflexed examination of the cardia. Duodenum: bulbar duodenitis, bx taken Intervention: Biopsies as noted above, balloon dilation Findings: Terminal Ileum-normal Cecum:normal Right sided retroflexion- normal Ascending Colon: normal Transverse Colon -normal Descending Colon:normal Sigmoid Colon: at about 42 cm pedunculated polyp noted 10-12 mm, injected with epinephrine and removed with cold snare with one clip applied to stalk Rectum: Retroflexion with small internal hemorrhoids, grade I Anorectum - normal Impression and Post Procedure Diagnosis: Endoscopy Findings: duodenitis erosive gastritis Colonoscopy Findings: colon polyp internal hemorrhoids Plan: Await Pathology results Repeat Colonoscopy in 3 years due to polyp or earlier if clinically indicated High fiber diet leaflet avoid straining at stool, epsom salts and sitz bath, anusol supps or cream cut back on nsaids if taking BIOPSY Received: 01/04/25 Diagnosis A. Duodenum, biopsy: Duodenal mucosa within normal limits; preserved villous architecture and no increased intraepithelial lymphocytes seen. B. Stomach, biopsy: Gastric antral and body mucosa within normal limits; negative for Helicobacter pylori, intestinal metaplasia and dysplasia. C. Gastroesophageal junction, biopsy: Gastric cardia type mucosa with mild chronic inflammation; no squamous mucosa seen; negative for intestinal metaplasia and dysplasia. D. Esophagus, distal, biopsy: Squamous mucosa within normal limits; negative for inflammation (including intraepithelial eosinophils), fungal organisms, intestinal metaplasia and dysplasia. E. Esophagus, proximal, biopsy: Tissue not received or processed. F. Colon, sigmoid, polypectomy: Tubular adenoma; negative for high-grade dysplasia. TODAY'S VISIT THE PROCEDURE SHOULD BE REPEATED in 3 years due to the size of the tubular adenoma. The procedure was well tolerated. The results were explained and the patient is agreeable to the follow-up interval as stated. The bowel pattern has returned to normal. Education was provided to tell any 1st degree relatives about their findings to be sure that they are screened by age 45. Educated that they will be put on a recall list when it is time for their repeat scope but should they move out of state or away from the hospital they will need to remember along with their primary to repeat the procedure in a timely fashion to avoid any adverse complications. After explanation he is agreeable to re starting his pantoparzole. He is having RUQ discomfort in a very localized, at times it may radiate to his lower chest but he is unsure about this....He can not characterize the feeling it like I have to shift in my chair. It is intermittent and will last for a day or two. It is not directly r/t eating or BM. It varies from 2/10-01/10. He also can not tie it to specific movement. This could be related to his GERD but will see how he feels after we restart pantoprazole because he is not clear on how long he has been off of it. This has been over the past 4-5 months. He is also having a feeling of tingling in the bilateral lungs with med to deep breaths. This has also been over the past 4-5 mos. No exposure to any fumes, no known illness. No cough, no known trauma. Will get CXR as he has upcoming appt with his PCP and this may help to elucidate the problems. His mother has GB out, will get US and proceed from there. ROV after US. [facility] Medical History (Updated 01/17/25 @ 13:15 by FRACISCO Garcia) Dysphagia Preop examination Injury of left knee Injury of knee, right Left knee pain Pharyngitis Adult wellness visit Right knee pain Lumbar radiculopathy Upper back pain Diverticulitis Abdominal pain Impacted cerumen of both ears Infection of fingernail Infection of finger Bilateral hip pain GERD (gastroesophageal reflux disease) Lumbar spondylosis Elevated cholesterol Screening for prostate cancer Low back pain Joint pain Intercostal muscle pain Viral illness Adult general medical exam Screening for colon cancer Atypical chest pain Screening for prostate cancer Laboratory examination ordered as part of a routine general medical examination Heartburn Right ankle swelling Depression Anxiety Surgical History H/O colonoscopy H/O right knee surgery Family History Paternal Aunt Colon cancer Mother Alzheimer dementia Social History Housing: House Alcohol intake: current Alcohol intake frequency: 0-2 drinks per day Alcohol type: beer Patient Tobacco Use Status: Never used Tobacco e-Cigarette/Vaping Use: Never Used Second Hand Smoke Exposure: No service: No Current occupational status: employed 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 Current occupational exposures/hazards: No Cognitive needs: No Hearing needs: No Vision needs: No Review of Systems Const Denies fatigue, Denies fever(s), Denies night sweats, Denies poor appetite and Denies weight loss Eyes Details: Glasses Reports requires corrective lenses ENT Reports Normal hearing present, Denies dental pain, Denies dysphagia, Denies hearing loss, Denies mouth pain, Denies odynophagia, Denies throat swelling, Denies tongue swelling and Reports other (Dentition adequate) Card Reports chest pain Resp Reports pain on inspiration GI Details: Reports abdominal pain, Denies melena, Denies bloating, Denies hematochezia, Denies constipation, Denies GI cramping, Denies dysphagia, Denies excessive flatus, Denies early satiety, Denies heartburn, Denies diarrhea, Denies nausea, Denies odynophagia, Denies vomiting and Denies hematemesis Skin/Breast Denies pruritus, Denies lesions, Denies rash and Denies jaundice Neuro Reports Normal hearing present and Denies Abnormal speech present Endo Denies fatigue Aller/Immun Denies throat swelling and Denies tongue swelling Physical Exam Vital Signs: Last Vital Signs Pulse 70 01/17/25 11:49 BP 116/74 01/17/25 11:49 Pulse Ox 97 01/17/25 11:49 Oxygen Delivery Method Room Air 01/17/25 11:49 BMI result Body Mass Index 20.8 Const General: cooperative, no acute distress, well developed and well groomed Nutritional Appearance: average body habitus and well nourished Orientation/consciousness: oriented to person, oriented to place and oriented to time Limitations: No language barrier HEENT Head: Yes normocephalic and Yes atraumatic Eyes General: appearance normal, both eyes and all related structures Pupils: Equal, round and reactive pupils present Neck Neck: Yes normal visual inspection and Yes no lymphadenopathy Thyroid: Thyroid normal Resp Effort & Inspection: normal respiratory effort and able to speak in complete sentences Auscultation: clear to auscultation bilaterally Cardio Rate: regular rate Rhythm: regular rhythm Heart sounds: Normal, physiologic split S2 sound present Peripheral pulses: radial pulses present and posterior tibial pulses present GI Inspection: No distended and No Abdominal panniculus present Palpation (GI): Soft to palpation, Tenderness to palpation present (GI) in the RUQ (Currently mild), no guarding, not rigid and No hepatosplenomegaly present Percussion: Yes normal to percussion Auscultation: normal bowel sounds Rectal Exam - Male: Yes deferred Skin General skin exam: no rashes or lesions noted, turgor normal, skin not dry, no jaundice, No spider nevi and no striae Rashes: no rashes Nails: normal Neuro General: oriented to person, oriented to place and oriented to time Cranial nerves: Yes Equal, round and reactive pupils present and Yes Normal hearing present Speech: No Abnormal speech present Extrem General: Yes normal to inspection, No clubbing, No cyanosis and No edema Psych Appearance: grossly normal and well kempt Mental Status: mental status grossly normal Speech and movement: Normal speech and movement present Affect: normal affect Attitude: cooperative Thought process: Normal thought process present and not confabulating Thought content: Normal thought content present Insight: Fair insight present (Psych) Judgement: Fair judgement present (Psych) Assessment & Plan Assessment & Plan (1) RUQ abdominal pain: Code(s): R10.11 - Right upper quadrant pain Category: Medical (2) Erosive gastritis: Comment: 01/2025 EGD, no H pylori Code(s): K29.60 - Other gastritis without bleeding Category: Medical (3) Tubular adenoma of colon: Comment: 01/2025 scope= 11 mm TA repeat in 3 years; 06/2022= 3 TA's scope repeat 3 years Code(s): D12.6 - Benign neoplasm of colon, unspecified Category: Medical (4) Pain aggravated by coughing and deep breathing: Code(s): R52 - Pain, unspecified; R05.9 - Cough, unspecified Category: Medical Plan THE PROCEDURE SHOULD BE REPEATED in 3 years due to the size of the tubular adenoma. The procedure was well tolerated. The results were explained and the patient is agreeable to the follow-up interval as stated. The bowel pattern has returned to normal. Education was provided to tell any 1st degree relatives about their findings to be sure that they are screened by age 45. Educated that they will be put on a recall list when it is time for their repeat scope but should they move out of state or away from the hospital they will need to remember along with their primary to repeat the procedure in a timely fashion to avoid any adverse complications. After explanation he is agreeable to re starting his pantoprazole. He is having RUQ discomfort in a very localized, at times it may radiate to his lower chest but he is unsure about this....He can not characterize the feeling it like I have to shift in my chair. It is intermittent and will last for a day or two. It is not directly r/t eating or BM. It varies from /10-6. He also can not tie it to specific movement. This could be related to his GERD but will see how he feels after we restart pantoprazole because he is not clear on how long he has been off of it. This has been over the past 4-5 months. He is also having a feeling of tingling in the bilateral lungs with med to deep breaths. This has also been over the past 4-5 mos. No exposure to any fumes, no known illness. No cough, no known trauma. Will get CXR as he has upcoming appt with his PCP and this may help to elucidate the problems. His mother has GB out, will get US and proceed from there. ROV after US. Orders: Orders US abdomen complete Today R10.11 - Right upper quadrant pain XR chest 2V Today R05.9 - Cough, unspecified, R52 - Pain, unspecified Medications: New pantoprazole (Protonix) 40 mg PO DAILY 90 tabs 1RF 90 days Coding Level of Care Code Est Pt Level 4 (29856) Diagnoses RUQ abdominal pain R10.11 Erosive gastritis K29.60 Tubular adenoma of colon D12.6 Pain aggravated by coughing and deep breathing R52; R05.9 Time Spent (min) 33
[2025-01-17 11:49] VITALS: BP 116/74; PULSE 70; O2SAT 97; BMI 20.8
--- OUTSIDE RECORDS SUMMARY | 2025-01-17 13:11 | XMS_ITS | Data Portability ---
Author Organization [facility] Pain Managem ent, PAIN OFFICE Address [address] [facility] [address] [place] [address] Care Team Providers Care Environmental Field Professional Name Role Phone Dodie ALMONTE Referring Provider CHAZ LAWRENCE Primary Care Provider Assessment Encounter [...] . The risks and benefits of the procedure were discussed in detail. He wishes to [...] . The risks and benefits of the procedure were discussed in detail. He wishes to proceed. An appointment will be booked for the same after insurance approval. He needs a recycle driver on the day of the procedure. [...] . The risks and benefits of the procedure were discussed in detail. He wishes to [...] . The risks and benefits of the procedure were discussed in detail. He wishes to proceed. An appointment will be booked for the same after insurance approval. He needs a recycle driver on the day of the procedure. [...] . The risks and benefits of the procedure were discussed in detail. He wishes to [...] By Organization Details Last Modified Time 02/09/2024 [id number] He was advised against bed rest lasting longer than four days and to continue activities as tolerated. [email or web address] Not available 02/09/2024 08:51:38 05/13/2024 [id number] He was advised against bed rest lasting longer than four days and to continue activities as tolerated. [email or web address] Not available 05/13/2024 10:12:30 06/23/2024 [id number] He was advised against bed rest lasting longer than four days and to continue activities as tolerated. [email or web address] Not available 06/23/2024 15:22:58 09/30/2024 [id number] He was advised against bed rest lasting longer than four days and to continue activities as tolerated. [email or web address] Not available 09/30/2024 10:15:48 11/08/2024 [id number] He was advised against bed rest lasting longer than four days and to continue activities as tolerated. [email or web address] Not available 11/08/2024 14:47:50 Reason for Referral None Reported. Problems Name Problem SNOMED Code Status Onset Date Resolution Date Notes Provider Name and Address Organization Details Recorded Time Degeneratio n of lumbar interverteb ral disc 88349937 Active 2021 Ly castorena MD [address] , [address], [place], [address], [facility] - [facility] Management 2 10:47:32 Lumbar spondylolis thesis 8698954610706 02 Active Ly castorena MD [address] , [address], [place], [address], [place] [facility] 2 11:18:37 Lumbar radiculopat hy 665341887 Active Ly castorena MD [address] , [address], [place], [address], [place] [facility] 2 11:18:50 Problem Notes None recorded. Procedures Surgical History Date Name Laterality Status Provider Name and Address Organization Details Recorded Time 11/09/19 25 Lumbar Epidural steroid injection under fluoroscopic guidance completed Ly Webb MD [address] , [address], [place], [address], [place] [facility] 11/08/2024 14:48:35 06/23/20 24 Lumbar Epidural steroid injection under fluoroscopic guidance completed Ly Webb MD [address] , [address], [place], [address], [place] [facility] 06/23/2024 15:23:41 02/09/20 24 Lumbar Epidural steroid injection under fluoroscopic guidance completed Ly Webb MD [address] , [address], [place], [address], [place] [facility] 02/09/2024 08:52:21 09/17/19 24 Lumbar Epidural steroid injection under fluoroscopic guidance completed Ly Webb MD [address] , [address], [place], [address], [place] [facility] 09/17/2023 09:47:48 11/27/19 23 Lumbar Epidural steroid injection under fluoroscopic guidance completed Ly Webb MD [address] , [address], [place], [address], [place] [facility] 11/26/2022 13:45:55 09/24/19 23 Lumbar Epidural steroid injection under fluoroscopic guidance completed Ly Webb MD [address] , [address], [place], [address], [place] [facility] 09/24/2022 14:42:40 Knee Surgery completed Ly Webb MD [address] [facility] , [address], [place], [address], [facility] - [facility] 07/24/2022 10:51:49 Imaging Results None recorded. Procedure Notes None recorded. Medical Equipment None Reported. Allergies Allergen ID Allergen Name Allergen Category Reaction Reaction Severity Criticality Documentation Date Start Date Code Code System Note Provider Name and Address Organization Details Recorded Time morphine medicatio n nausea mild Not available 07/24/2022 7052 RxNorm Ly castorena MD [address] , [address], [place], [address], [facility] - Pain Management 2 10:45:38 amoxicill in medicatio n nausea moderate low 07/30/2023 723 RxNorm Eri saini, [place] - [facility] 3 10:19:36 Medications Name [...] /min 100 % 100 % 21.5 kg/m2 77899.8 6 g 125 mm[Hg] 79 mm[Hg] Ly castorena MD [address] [facility] , [address], [place], [address] 5 10:05:18 Date Recorded Body height Heart rate Oxygen saturation Oxygen saturation in Arterial blood by Pulse oximetry Systolic blood pressure Diastolic blood pressure Provider Name and Address Organization Details Last Updated DateTime 5 177.8 cm 70 /min 98 % 98 % 108 mm[Hg] 73 mm[Hg] Maryanne Putz [place] - [facility] 5 14:28:20 Date Recorded Body height Heart rate Oxygen [...] /min 98 % 98 % 22 kg/m2 89015.6 3 g 114 mm[Hg] 78 mm[Hg] Ly castorena MD [address] , [address], [place], [address], [place] [facility] 4 09:57:28 Date Recorded Body height Oxygen saturation Oxygen saturation in Arterial blood by Pulse oximetry Heart rate Systolic blood pressure Diastolic blood pressure Provider Name and Address Organization Details Last Updated DateTime 4 177.8 cm 96 % 96 % 74 /min 106 mm[Hg] 70 mm[Hg] Stephanie corbett [place] - [facility] 4 14:59:16 Social History Question Answer Notes LastModified by Organizat ion Details LastModified Time Tobacco Smoking Status Never Smoker Ly Webb MD [address] , [address], [place], [address], [place] [facility] 07/24/2022 10:50:54 Are You Blind Or Do You Have Difficulty Seeing? No Information not available 07/24/2022 Are You Deaf Or Do You Have Serious Difficulty Hearing? No Information not available 07/24/2022 What Is The Highest Grade Or Level Of School You Have Completed Or The Highest Degree You Have Received? 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 [employer] Information not available 07/24/2022 Do you have [...] SNOMED-CT Code Diagnosis ICD10 Code Diagnosis Note [id number] Ly Webb MD PAIN OFFICE [address] [facility] [place] [address] 07/24/2022 10:11:09 07/24/2022 11:30:11 Degeneration of lumbar intervertebral disc 85983411 M51.36 Lumbar radiculopathy 128 624986 M54.16 99670 Ly Webb MD PAIN OFFICE [address] [facility] [place] [address] 09/24/2022 14:01:38 09/24/2022 15:09:25 Degeneration of lumbar intervertebral disc 36816980 M51.36 Lumbar radiculopathy 128 904557 M54.16 79781 Ly Webb MD PAIN OFFICE [address] [facility] [place] [address] 10/31/2022 10:44:39 10/31/2022 11:00:47 Degeneration of lumbar intervertebral disc 94280729 M51.36 Lumbar radiculopathy 128 175320 M54.16 37330 Ly Webb MD [facility] PAIN OFFICE [address] [facility] [place] [address] 11/26/2022 13:26:08 11/26/2022 13:51:19 Degeneration of lumbar intervertebral disc 81621120 M51.36 Lumbar radiculopathy 128 976592 M54.16 12588 Ly Webb MD PAIN OFFICE [address] [facility] [place] [address] 07/30/2023 10:15:10 07/30/2023 10:51:10 Lumbar radiculopathy 317417368 M54.16 Degenerati on of lumbar intervertebral disc 39103880 M51.36 08100 Ly Webb MD [facility] PAIN OFFICE [address] [facility] [place] [address] 09/17/2023 09:16:29 09/17/2023 10:28:40 Degeneration of lumbar intervertebral disc 99367420 M51.36 Lumbar radiculopathy 128 540439 M54.16 85853 Ly Webb MD [facility] PAIN OFFICE [address] [facility] [place] [address] 12/17/2023 13:26:00 12/17/2023 13:59:05 Lumbar radiculopathy 628716447 M54.16 Degenerati on of lumbar intervertebral disc 82813086 M51.36 80808 Ly Webb MD PAIN OFFICE [address] [facility] [place] [address] 02/09/2024 08:17:18 02/09/2024 11:29:16 Lumbar radiculopathy 613045620 M54.16 Lumbar spondylolisthesis 4386617146 52751 M43.16 Degenerati on of lumbar intervertebral disc 74013039 M51.36 11713 Ly Webb MD PAIN OFFICE [address] [place] [address] 05/13/2024 09:52:03 05/13/2024 10:16:43 Lumbar radiculopathy 492505745 M54.16 Lumbar spondylolisthesis 2925911746 00317 M43.16 Degenerati on of lumbar intervertebral disc 36517353 M51.362 71024 Ly Webb MD PAIN OFFICE [address] [facility] [place] [address] 06/23/2024 14:50:17 06/23/2024 15:28:41 Lumbar spondylolisthesis 9807421535 68318 M43.16 Lumbar radiculopathy 128 036554 M54.16 Degenerati on of lumbar intervertebral disc 06070289 M51.362 69255 Ly Webb MD PAIN OFFICE [address] [place] [address] 09/30/2024 09:57:20 09/30/2024 10:18:01 Lumbar radiculopathy 107909817 M54.16 Lumbar spondylolisthesis 2136041266 18771 M43.16 Degenerati on of lumbar intervertebral disc 06247753 M51.362 57982 Ly Webb MD PAIN OFFICE [address] [facility] [place] [address] 11/08/2024 14:22:57 11/08/2024 16:47:38 Lumbar spondylolisthesis 6723982872 84113 M43.16 Degenerati on of lumbar intervertebral disc 79323011 M51.362 Lumbar radiculopathy 128 877985 M54.16 Health Concerns Section Related Observation LastModified by Organization Detai ls LastModified Time None Recorded Concern Status LastModified by Organization Details LastModified Time None Recorded Advance Directives Directive None Recorded Payers Insurance Date Sequence Insurance Name Policy Number Policy Ceja Covered Member ID Ceja Member ID Guarantor Name 11/05/2024 1 [facility] PL[facility] (MEDICAID HMO) MATA Fletcher [id number] Ha Fletcher Notes Date Note Type Note Provider Name and Address Organization Details Recorded Time 02/09/2024 text/html He is here today for a lumbar epidural steroid injection under fluoroscopic guidance. He has seen Dr. Stevie Ohara and he does not recommend surgery at time. Ly Webb MD [address] [facility] , [address], [place], [address], [place] [facility] 02/09/2024 15:29:22 [...] some pain benefit Ly Webb MD [address] [facility] , [address], [place], [address], [place] [facility] 05/13/2024 10:27:18 06/23/2024 text/html He is here today for a lumbar epidural steroid injection under fluoroscopic guidance. He has seen Dr. Stevie Ohara and he does not recommend surgery at time. Ly Webb MD [address] [facility] , [address], [place], [address], [place] [facility] 06/23/2024 15:34:49 09/30/2024 text/html Ha [...] some pain benefit Ly Webb MD [address] [facility] , [address], [place], [address], [place] [facility] 09/30/2024 10:56:28 11/08/2024 text/html He is here today for a lumbar epidural steroid injection under fluoroscopic guidance. Ly Webb MD [address] [facility] , [address], [place], [address], [place] [facility] 11/08/2024 16:52:38
== END 2025-01-17 13:38 | disposition home or self-care (01) ==
PROVIDERS: PCP Family Medicine; Visit Provider Nurse Practitioner
DX: R10.11 Right upper quadrant pain (principal); K29.60 Other gastritis without bleeding; D12.6 Benign neoplasm of colon, unspecified; R05.9 Cough, unspecified
CPT/HCPCS: 99214

== ENCOUNTER → 2025-01-17 12:31 | Outpatient (BNV) | payer OTHER, SELFPAY | PROVIDERS: PCP Family Medicine; Visit Provider Radiology Diagnostic Radiology | DX: R52 Pain, unspecified (principal) | CPT/HCPCS: 71046 ==

== ENCOUNTER 2025-02-16 08:19 | Outpatient (REF) | payer OTHER, SELFPAY ==
--- NOTE | ~2025-02-16 | US_ITS ---
CLINICAL HISTORY: R10.11 - Right upper quadrant pain US abdomen complete Comparison: None provided Findings: The visualized pancreas is normal. The aorta and inferior vena cava are normal caliber. The liver is normal in size and echotexture. There is no intrahepatic bile duct dilatation. The common duct is 2.6 mm in diameter. The gallbladder is normal. There is no sonographic Cardoza sign. The main portal vein is antegrade. Kidneys are of normal echotexture without focal lesion, nephrolithiasis, or hydronephrosis. The spleen is normal. No ascites. IMPRESSION: 1. Normal complete abdominal ultrasound. This document has been electronically signed by: Eduardo Bryan MD on 02/16/2025 09:59:47
--- OUTSIDE RECORDS SUMMARY | 2025-02-16 08:24 | XMS_ITS | Data Portability ---
Author Organization [facility], PAIN OFFICE Address [address] [facility] [address] [place] [address] Care Team Providers Care Maritime Pilot Name Role Phone Dodie ALMONTE Referring Provider [phone] [address] [place] Primary Care Provider Assessment Encounter [...] same after insurance approval. He needs a tractor trailer moving van driver on the day of the procedure. [...] same after insurance approval. He needs a tractor trailer moving van driver on the day of the procedure. [...] By Organization Details Last Modified Time 02/09/2024 [id number] He was advised against bed rest lasting longer than four days and to continue activities as tolerated. [email or web address] Not available 02/09/2024 08:51:38 05/13/2024 [id number] He was advised against bed rest lasting longer than four days and to continue activities as tolerated. [email or web address] Not available 05/13/2024 10:12:30 06/23/2024 18127 He was advised against bed rest lasting longer than four days and to continue activities as tolerated. [email or web address] Not available 06/23/2024 15:22:58 09/30/2024 92700 He was advised against bed rest lasting longer than four days and to continue activities as tolerated. [email or web address] Not available 09/30/2024 10:15:48 11/08/2024 06341 He was advised against bed rest lasting longer than four days and to continue activities as tolerated. [email or web address] Not available 11/08/2024 14:47:50 Reason for Referral None Reported. Problems Name Problem SNOMED Code Status Onset Date Resolution Date Notes Provider Name and Address Organization Details Recorded Time Lumbar spondylolis thesis 2089357895218 02 Active Ly castorena MD [address] , [address], [place], [address], [facility] - [facility] 2 11:18:37 Lumbar radiculopat hy 654757525 Active Ly castorena MD [address] , [address], [place], [address], [place] [facility] 11:18:50 Degeneratio n of lumbar interverteb ral disc 28006017 Active 2021 Ly castorena MD [address] , [address], [place], [address], [place] [facility] 10:47:32 Problem Notes None recorded. Procedures Surgical History Date Name Laterality Status Provider Name and Address Organization Details Recorded Time 11/09/19 25 Lumbar Epidural steroid injection under fluoroscopic guidance completed Ly Webb MD [address] , [address], [place], [address], [place] [facility] 11/08/2024 14:48:35 06/23/20 24 Lumbar Epidural steroid injection under fluoroscopic guidance completed Ly Webb MD [address] , [address], [place], [address], [place] [facility] 06/23/2024 15:23:41 02/09/20 24 Lumbar Epidural steroid injection under fluoroscopic guidance completed Ly Webb MD [address] , [address], [place], [address], [place] [facility] 02/09/2024 08:52:21 09/17/19 24 Lumbar Epidural steroid injection under fluoroscopic guidance completed Ly Webb MD [address] , [address], [place], [address], [place] [facility] 09/17/2023 09:47:48 11/27/19 23 Lumbar Epidural steroid injection under fluoroscopic guidance completed Ly Webb MD [address] , [address], [place], [address], [place] [facility] 11/26/2022 13:45:55 09/24/19 23 Lumbar Epidural steroid injection under fluoroscopic guidance completed yL Webb MD [address] , [address], [place], [address], [place] [facility] 09/24/2022 14:42:40 Knee Surgery completed Ly Webb MD [address] , [address], [place], [address], [facility] - [facility] 07/24/2022 10:51:49 Imaging Results None recorded. Procedure Notes None recorded. Medical Equipment None Reported. Allergies Allergen ID Allergen Name Allergen Category Reaction Reaction Severity Criticality Documentation Date Start Date Code Code System Note Provider Name and Address Organization Details Recorded Time morphine medicatio n nausea mild Not available 07/24/2022 7052 RxNorm Ly castorena MD [address] [facility] , [address], [place], [address], [facility] - Pain Management 2 10:45:38 amoxicill in medicatio n nausea moderate low 07/30/2023 723 RxNorm Eri saini, [place] - [facility] 3 10:19:36 Medications Name [...] Body mass index (BMI) Body weight Systolic And Diastolic Provider Name and Address Organization Details Last Updated DateTime 5 177.8 cm 68 /min 100 % 100 % 21.5 kg/m2 64719.8 6 g 125/79 mm[Hg] Ly castorena MD [address] [facility] , [address], [facility] [place], [address], [facility] Pain [facility] 5 10:05:18 Date Recorded Body height Heart rate Oxygen saturation Oxygen saturation in Arterial blood by Pulse oximetry Systolic And Diastolic Provider Name and Address Organization Details Last Updated DateTime 5 177.8 cm 70 /min 98 % 98 % 108/73 mm[Hg] Maryanne Vargas [place] [facility] 5 14:28:20 Date Recorded Body height Heart rate Oxygen saturation Oxygen saturation in Arterial blood by Pulse oximetry Systolic And Diastolic Provider Name and Address Organization Details Last Updated DateTime 4 177.8 cm 64 /min 95 % 95 % 125/75 mm[Hg] Maryanne Vargas [place] [facility] 4 08:33:27 Date Recorded Body height Heart rate Oxygen saturation Oxygen saturation in Arterial blood by Pulse oximetry Body mass index (BMI) Body weight Systolic And Diastolic Provider Name and Address Organization Details Last Updated DateTime 4 177.8 cm 69 /min 98 % 98 % 22 kg/m2 13694.6 3 g 114/78 mm[Hg] Ly castorena MD [address] , [address], [place], [address], [place] [facility] 4 09:57:28 Date Recorded Body height Oxygen saturation Oxygen saturation in Arterial blood by Pulse oximetry Heart rate Systolic And Diastolic Provider Name and Address Organization Details Last Updated DateTime 4 177.8 cm 96 % 96 % 74 /min 106/70 mm[Hg] Stephanie Samara corbett [place] - [facility] 4 14:59:16 Social History Question Answer Notes LastModified by [employer] Details LastModified Time Tobacco Smoking Status Never Smoker Ly Webb MD [address] , [address], [place], [address], [place] [facility] 07/24/2022 10:50:54 Are You Blind Or Do You Have Difficulty Seeing? No Information not available 07/24/2022 Are You Deaf Or Do You Have Serious Difficulty Hearing? No Information not available 07/24/2022 What Is The Highest Grade Or Level Of School You Have Completed Or The Highest Degree You Have Received? 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[employer] Information not available 07/24/2022 Do you [...] SNOMED-CT Code Diagnosis ICD10 Code Diagnosis Note [id number] Ly Webb MD PAIN OFFICE [address] [facility] [place] [address] 07/24/2022 10:11:09 07/24/2022 11:30:11 Degeneration of lumbar intervertebral disc 54349832 M51.36 Lumbar radiculopathy 128 189564 M54.16 70600 Ly Webb MD PAIN OFFICE [address] [facility] [place] [address] 09/24/2022 14:01:38 09/24/2022 15:09:25 Degeneration of lumbar intervertebral disc 68662037 M51.36 Lumbar radiculopathy 128 537691 M54.16 62463 Ly Webb MD [facility] PA[facility] [address] [facility] [place] [address] 10/31/2022 10:44:39 10/31/2022 11:00:47 Degeneration of lumbar intervertebral disc 40361982 M51.36 Lumbar radiculopathy 128 159343 M54.16 25396 Ly Webb MD [facility] PAIN OFFICE [address] [facility] [place] [address] 11/26/2022 13:26:08 11/26/2022 13:51:19 Degeneration of lumbar intervertebral disc 37400697 M51.36 Lumbar radiculopathy 128 M54.16 23061 Ly Webb MD [facility] PAIN OFFICE [address] [facility] [place] [address] 07/30/2023 10:15:10 07/30/2023 10:51:10 Lumbar radiculopathy 271518393 M54.16 Degenerati on of lumbar intervertebral disc 74693379 M51.36 13144 Ly Webb MD [facility] PAIN OFFICE [address] [facility] [place] [place] [address] 09/17/2023 09:16:29 09/17/2023 10:28:40 Degeneration of lumbar intervertebral disc 85571670 M51.36 Lumbar radiculopathy 128 019437 M54.16 49451 Ly Webb MD [facility] PA[facility] OFF[facility] [address] [facility] [place] [address] 12/17/2023 13:26:00 12/17/2023 13:59:05 Lumbar radiculopathy 774373032 M54.16 Degenerati on of lumbar intervertebral disc 31004034 M51.36 57457 Ly Webb MD PAIN OFFICE [address] [facility] [place] [address] 02/09/2024 08:17:18 02/09/2024 11:29:16 Lumbar radiculopathy 312581072 M54.16 Lumbar spondylolisthesis 9359310742 42988 M43.16 Degenerati on of lumbar intervertebral disc 20100922 M51.36 05448 Ly Webb MD PAIN OFFICE [address] [facility] [place] [address] 05/13/2024 09:52:03 05/13/2024 10:16:43 Lumbar radiculopathy 208089413 M54.16 Lumbar spondylolisthesis 2446203471 37464 M43.16 Degenerati on of lumbar intervertebral disc 22540515 M51.362 13004 Ly Webb MD PAIN OFFICE [address] [facility] [place] [address] 06/23/2024 14:50:17 06/23/2024 15:28:41 Lumbar spondylolisthesis 7431807128 85639 M43.16 Lumbar radiculopathy 128 479520 M54.16 Degenerati on of lumbar intervertebral disc 16646104 M51.362 20814 Ly Webb MD PAIN OFFICE [address] [facility] [place] [address] 09/30/2024 09:57:20 09/30/2024 10:18:01 Lumbar radiculopathy 068013253 M54.16 Lumbar spondylolisthesis 6849231958 73372 M43.16 Degenerati on of lumbar intervertebral disc 81346435 M51.362 99658 Ly Webb MD PAIN OFFICE [address] [facility] [place] [address] 11/08/2024 14:22:57 11/08/2024 16:47:38 Lumbar spondylolisthesis 4481024546 02734 M43.16 Degenerati on of lumbar intervertebral disc 25545710 M51.362 Lumbar radiculopathy 128 800349 M54.16 Health Concerns Section Related Observation LastModified by Organization Detai ls LastModified Time None Recorded Concern Status LastModified by Organization Details LastModified Time None Recorded Advance Directives Directive None Recorded Payers Insurance Date Sequence Insurance Name Policy Number Policy Ceja Covered Member ID Ceja Member ID Guarantor Name 11/05/2024 1 [facility] PL[facility] (MEDICAID HMO) MATA Fletcher [id number] Ha Fletcher Notes Date Note Type Note Provider Name and Address Organization Details Recorded Time 02/09/2024 text/html He is here today for a lumbar epidural steroid injection under fluoroscopic guidance. He has seen Dr. Stevie Ohara and he does not recommend surgery at time. Ly Webb MD [address] [facility] , [address], [place], [address], [facility] - Pain Management 02/09/2024 15:29:22 [...] some pain benefit Ly Webb MD [address] [facility] , [address], [place], [address], [facility] - Pain Management 05/13/2024 10:27:18 06/23/2024 text/html He is here today for a lumbar epidural steroid injection under fluoroscopic guidance. He has seen Dr. Stevie Ohara and he does not recommend surgery at time. Ly Webb MD [address] [facility] , [address], [place], [address], [facility] - Pain Management 06/23/2024 15:34:49 [...] some pain benefit Ly Webb MD [address] [facility] [address], [place], [address], [facility] - Pain Management 09/30/2024 10:56:28 11/08/2024 text/html He is here today for a lumbar epidural steroid injection under fluoroscopic guidance. Ly Webb MD [address] [facility] , [address], [place], [address], [place] [facility] 11/08/2024 16:52:38
== END 2025-02-16 08:20 | disposition home or self-care (01) ==
LOC: HO.HMGCX 08:19
PROVIDERS: PCP Family Medicine; Visit Provider Nurse Practitioner
DX: R10.11 Right upper quadrant pain (principal)
CPT/HCPCS: 76700

== ENCOUNTER → 2025-02-16 08:21 | Outpatient (BNV) | payer OTHER, SELFPAY | PROVIDERS: PCP Family Medicine; Visit Provider Radiology Diagnostic Radiology | DX: R10.11 Right upper quadrant pain (principal) | CPT/HCPCS: 76700 ==

== ENCOUNTER 2025-03-09 12:20 | Outpatient (AMB) | payer OTHER, SELFPAY ==
[2025-03-09 12:24] VITALS: BP 126/81; PULSE 81; BMI 22.3
--- NOTE | 2025-03-09 12:24 | A.OFFVIS_ITS ---
Vital Signs 03/09/25 12:24 Height 5 ft 10 in Weight 155 lb 3.287 oz BMI 22.3 BP 126/81 Blood Pressure Location Rt brachial Position Sitting Pulse 81 Intake Visit Reasons: Review US results Intake Note: Ha presents to in office follow up for US results. CC: Patient reports doing well today except the RUQ abdominal discomfort. 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 Accompanied by: Self / Same As Patient Allergies amoxicillin Allergy (Mild, Verified 03/09/25 12:27) nausea, body aches, headaches, vomiting, body acheses morphine Adverse Reaction (Intermediate, Verified 03/09/25 12:27) nausea, vomiting HPI HPI Review US results: Details: Assessment & Plan (1) RUQ abdominal pain: Code(s): R10.11 - Right upper quadrant pain Category: Medical (2) Erosive gastritis: Comment: 01/2025 EGD, no H pylori Code(s): K29.60 - Other gastritis without bleeding Category: Medical (3) Tubular adenoma of colon: Comment: 01/2025 scope= 11 mm TA repeat in 3 years; 06/2022= 3 TA's scope repeat 3 years Code(s): D12.6 - Benign neoplasm of colon, unspecified Category: Medical (4) Pain aggravated by coughing and deep breathing: Code(s): R52 - Pain, unspecified; R05.9 - Cough, unspecified Category: Medical Plan THE PROCEDURE SHOULD BE REPEATED in 3 years due to the size of the tubular adenoma. The procedure was well tolerated. The results were explained and the patient is agreeable to the follow-up interval as stated. The bowel pattern has returned to normal. Education was provided to tell any 1st degree relatives about their findings to be sure that they are screened by age 45. Educated that they will be put on a recall list when it is time for their repeat scope but should they move out of state or away from the hospital they will need to samuel mber along with their primary to repeat the procedure in a timely fashion to avoid any adverse complications. After explanation he is agreeable to re starting his pantoprazole. He is having RUQ discomfort in a very localized, at times it may radiate to his lower chest but he is unsure about this....He can not characterize the feeling it like I have to shift in my chair. It is intermittent and will last for a day or two. It is not directly r/t eating or BM. It varies from 09/12-01/10. He also can not tie it to specific movement. This could be related to his GERD but will see how he feels after we restart pantoprazole because he is not clear on how long he has been off of it. This has been over the past 4-5 months. He is also having a feeling of tingling in the bilateral lungs with med to deep breaths. This has also been over the past 4-5 mos. No exposure to any fumes, no known illness. No cough, no known trauma. Will get CXR as he has upcoming appt with his PCP and this may help to elucidate the problems. His mother has GB out, will get US and proceed from there. ROV after US. Orders: Orders US abdomen complete Today R10.11 - Right upper quadrant pain XR chest 2V Today R05.9 - Cough, unspecified, R52 - Pain, unspecified Medications: New pantoprazole (Protonix) 40 mg PO DAILY 90 tabs 1RF 90 days CHEST X-RAY 01/17/2025 FINDINGS: Heart size is within normal limits. Mediastinal and hilar structures are unremarkable. Lungs are clear and well expanded. There is no sign of pleural effusion. Osseous structures are unremarkable. XR/XR chest 2V IMPRESSION: No acute disease. ULTRASOUND OF THE ABDOMEN 02/16/2025 Findings: The visualized pancreas is normal. The aorta and inferior vena cava are normal caliber. The liver is normal in size and echotexture. There is no intrahepatic bile duct dilatation. The common duct is 2.6 mm in diameter. The gallbladder is normal. There is no sonographic Cardoza sign. The main portal vein is antegrade. Kidneys are of normal echotexture without focal lesion, nephrolithiasis, or hydronephrosis. The spleen is normal. No ascites. IMPRESSION: 1. Normal complete abdominal ultrasound. TODAY'S VISIT (He is having RUQ discomfort in a very localized, at times it may radiate to his lower chest but he is unsure about this....He can not characterize the feeling it like I have to shift in my chair. It is intermittent and will last for a day or two. It is not directly r/t eating or BM. It varies from 10-6. He also can not tie it to specific movement. This could be related to his GERD but will see how he feels after we restart pantoprazole because he is not clear on how long he has been off of it.This has been over the past 4-5 months. He is also having a feeling of tingling in the bilateral lungs with med to deep breaths.) He is relieved that there was no severe pathology uncovered. He says that it feels like there is something that rolls over the outside of the ribcage so it sounds like this really has a muscular issue. His GERD was helped in terms of his chest pain with the pantoprazole. I ask if he wishes to continue to follow with our service but he thinks it will be okay if he has a his primary care provider take over prescribing this. Return office visit as needed or in 3 years for his repeat colonoscopy. [facility] Medical History Dysphagia Preop examination Injury of left knee Injury of knee, right Left knee pain Pharyngitis Adult wellness visit Right knee pain Lumbar radiculopathy Upper back pain Diverticulitis Abdominal pain Impacted cerumen of both ears Infection of fingernail Infection of finger Bilateral hip pain GERD (gastroesophageal reflux disease) Lumbar spondylosis Elevated cholesterol Screening for prostate cancer Low back pain Joint pain Intercostal muscle pain Viral illness Adult general medical exam Screening for colon cancer Atypical chest pain Screening for prostate cancer Laboratory examination ordered as part of a routine general medical examination Heartburn Right ankle swelling Depression Anxiety Surgical History H/O colonoscopy H/O right knee surgery Family History Paternal Aunt Colon cancer Mother Alzheimer dementia Social History Housing: House Alcohol intake: current Alcohol intake frequency: 0-2 drinks per day Alcohol type: beer Patient Tobacco Use Status: Never used Tobacco e-Cigarette/Vaping Use: Never Used Second Hand Smoke Exposure: No service: No Current occupational status: employed 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 Current occupational exposures/hazards: No Cognitive needs: No Hearing needs: No Vision needs: No Review of Systems Const Denies fatigue, Denies fever(s), Denies night sweats, Denies poor appetite and Denies weight loss Eyes Details: Glasses Reports requires corrective lenses ENT Reports Normal hearing present, Denies dental pain, Denies dysphagia, Denies hearing loss, Denies mouth pain, Denies odynophagia, Denies throat swelling, Denies tongue swelling and Reports other (Dentition adequate) Card Reports no additional complaints Resp Reports no additional complaints GI Details: Reports abdominal pain, Denies melena, Denies bloating, Denies hematochezia, Denies constipation, Denies GI cramping, Denies dysphagia, Denies excessive flatus, Denies early satiety, Reports heartburn, Denies diarrhea, Denies nausea, Denies odynophagia, Denies vomiting and Denies hematemesis Skin/Breast Denies pruritus, Denies lesions, Denies rash and Denies jaundice Neuro Reports Normal hearing present and Denies Abnormal speech present Endo Denies fatigue Aller/Immun Denies throat swelling and Denies tongue swelling Physical Exam Vital Signs: BMI result Body Mass Index 22.3 Const General: cooperative, no acute distress, well developed and well groomed Nutritional Appearance: well nourished and thin Orientation/consciousness: oriented to person, oriented to place and oriented to time Limitations: No language barrier HEENT Head: Yes normocephalic and Yes atraumatic Eyes Other: glasses General: appearance normal, both eyes and all related structures Pupils: Equal, round and reactive pupils present Neck Neck: Yes normal visual inspection and Yes no lymphadenopathy Thyroid: Thyroid normal Resp Effort & Inspection: normal respiratory effort and able to speak in complete sentences Auscultation: clear to auscultation bilaterally Cardio Rate: regular rate Rhythm: regular rhythm Heart sounds: Normal, physiologic split S2 sound present Peripheral pulses: radial pulses present and posterior tibial pulses present GI Inspection: No distended and No Abdominal panniculus present Palpation (GI): Soft to palpation, nontender, no guarding, not rigid and No hepatosplenomegaly present Percussion: Yes normal to percussion Auscultation: normal bowel sounds Rectal Exam - Male: Yes deferred Skin General skin exam: no rashes or lesions noted, turgor normal, skin not dry, no j aundice, No spider nevi and no striae Rashes: no rashes Nails: normal Neuro General: oriented to person, oriented to place and oriented to time Cranial nerves: Yes Equal, round and reactive pupils present and Yes Normal hearing present Speech: No Abnormal speech present Extrem General: Yes normal to inspection, No clubbing, No cyanosis and No edema Psych Appearance: grossly normal and well kempt Mental Status: mental status grossly normal Speech and movement: Normal speech and movement present Affect: normal affect Attitude: cooperative Thought process: Normal thought process present and not confabulating Thought content: Normal thought content present Insight: Good insight present (Psych) Judgement: Good judgement present (Psych) Results Reviewed Results Reviewed: CHEST X-RAY 01/17/2025 FINDINGS: Heart size is within normal limits. Mediastinal and hilar structures are unremarkable. Lungs are clear and well expanded. There is no sign of pleural effusion. Osseous structures are unremarkable. XR/XR chest 2V IMPRESSION: No acute disease. ULTRASOUND OF THE ABDOMEN 02/16/2025 Findings: The visualized pancreas is normal. The aorta and inferior vena cava are normal caliber. The liver is normal in size and echotexture. There is no intrahepatic bile duct dilatation. The common duct is 2.6 mm in diameter. The gallbladder is normal. There is no sonographic Cardoza sign. The main portal vein is antegrade. Kidneys are of normal echotexture without focal lesion, nephrolithiasis, or hydronephrosis. The spleen is normal. No ascites. IMPRESSION: 1. Normal complete abdominal ultrasound. Assessment & Plan Assessment & Plan (1) RUQ abdominal pain: Code(s): R10.11 - Right upper quadrant pain Category: Medical (2) Erosive gastritis: Comment: 01/2025 EGD, no H pylori Code(s): K29.60 - Other gastritis without bleeding Category: Medical Plan (He is having RUQ discomfort in a very localized, at times it may radiate to his lower chest but he is unsure about this....He can not characterize the feeling it like I have to shift in my chair. It is intermittent and will last for a day or two. It is not directly r/t eating or BM. It varies from 2/10-6/10. He also can not tie it to specific movement. This could be related to his GERD but will see how he feels after we restart pantoprazole because he is not clear on how long he has been off of it.This has been over the past 4-5 months. He is also having a feeling of tingling in the bilateral lungs with med to deep breaths.) He is relieved that there was no severe pathology uncovered. He says that it feels like there is something that rolls over the outside of the ribcage so it sounds like this really has a muscular issue. His GERD was helped in terms of his chest pain with the pantoprazole. I ask if he wishes to continue to follow with our service but he thinks it will be okay if he has a his primary care provider take over prescribing this. Return office visit as needed or in 3 years for his repeat colonoscopy. Coding Level of Care Code Est Pt Level 3 (42808) Diagnoses RUQ abdominal pain R10.11 Erosive gastritis K29.60
== END 2025-03-09 12:59 | disposition home or self-care (01) ==
LOC: HO.HGI 12:20
PROVIDERS: PCP Family Medicine; Visit Provider Nurse Practitioner
DX: R10.11 Right upper quadrant pain (principal); K29.60 Other gastritis without bleeding
CPT/HCPCS: 99213

== ENCOUNTER → 2025-03-09 12:20 | Outpatient (BNVA) | payer OTHER, SELFPAY | PROVIDERS: PCP Family Medicine; Visit Provider Nurse Practitioner | DX: Z71.2 Person consulting for explanation of examination or test findings (principal); R10.11 Right upper quadrant pain; K29.60 Other gastritis without bleeding; D12.6 Benign neoplasm of colon, unspecified | CPT/HCPCS: 99212 ==

== ENCOUNTER 2025-06-21 13:52 | Outpatient (AMB) | payer OTHER, SELFPAY ==
--- NOTE | 2025-06-21 14:14 | MHC.PC.OV ---
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 Allergies amoxicillin Allergy (Mild, Verified 06/21/25 14:15) nausea, body aches, headaches, vomiting, body acheses morphine Adverse Reaction (Intermediate, Verified 06/21/25 14:15) nausea, vomiting Medication List - Last Reconciled 06/21/25 by Christopher Stoddard MD atorvastatin 20 mg PO BEDTIME celecoxib 200 mg PO BID PRN 21 days gabapentin 300 mg PO TID PRN pantoprazole (Protonix) 40 mg PO DAILY 90 days trazodone 25 mg (1/2 x 50 mg) PO BEDTIME PRN 30 days Tobacco use date assessed: 07/12/24 Dental Screening Dental Screen Date: 07/12/24 HPI Discomfort on side and arthritis in fingers HPI Details 49 y/o male presents today with complaints of abd/side discomfort. Also reports ?arthritis in fingers, joint pain. Left 4th and 5th finger stiffness and slowness Circulation and sensation intact Strength is normal Reports RUQ abd pain. Ultrasound had been negative. [facility] Medical History (Updated 06/21/25 @ 14:51 by Jhoan Lainez) Abdominal pain Joint pain Dysphagia Preop examination Injury of left knee Injury of knee, right Left knee pain Pharyngitis Adult wellness visit Right knee pain Lumbar radiculopathy Upper back pain Diverticulitis Impacted cerumen of both ears Infection of fingernail Infection of finger Bilateral hip pain GERD (gastroesophageal reflux disease) Lumbar spondylosis Elevated cholesterol Screening for prostate cancer Low back pain Intercostal muscle pain Viral illness Adult general medical exam Screening for colon cancer Atypical chest pain Screening for prostate cancer Laboratory examination ordered as part of a routine general medical examination Heartburn Right ankle swelling Depression Anxiety Surgical History H/O colonoscopy H/O right knee surgery Family History Paternal Aunt Colon cancer Mother Alzheimer dementia Social History Housing: House Alcohol intake: current Alcohol intake frequency: 0-2 drinks per day Alcohol type: beer Patient Tobacco Use Status: Never used Tobacco e-Cigarette/Vaping Use: Never Used Second Hand Smoke Exposure: No service: No Current occupational status: employed 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 Current occupational exposures/hazards: No Cognitive needs: No Hearing needs: No Vision needs: No Questionnaire Thrive Questionnaire Date Thrive assessed: 08/18/24 I am a: Patient What is your living situation today?: I have a steady place to live Within the past 12 months, did the food you bought not last and you didn't have the money to get more?: Never true Within the past 12 months, did you worry whether your food would run out before you got money to buy more?: Never true Do you have trouble paying for medicines?: No Do you have trouble getting transportation to medical appointments?: No Do you have trouble paying your heating and electricity bill?: No Do you have trouble taking care of your child, family member or friend?: No Do you have trouble with day-to-day activities such as bathing, preparing meals, shopping, managing finances, etc.?: No Are you currently unemployed and looking for a job?: No Are you interested in more education?: No Please select the resources that you would like help with: None Currently or been in a relationship where the following occur: No concerns reported THRIVE Score: 0 FAZAL-7 AMB Questionnaire FAZAL-7 Date FAZAL - 7 assessed: 07/12/24 Source: Developed by Drs. Terry Zacarias, July Sepulveda, Kev Ling and colleagues, with an educational lincoln from [employer]. Review of Systems Const Denies chills, Denies fatigue, Denies fever(s), Denies headache(s) and Denies weakness ENT Denies dizziness and Denies headache(s) Card Denies dyspnea Resp Denies cough, Denies dyspnea, Denies wheezing and Denies other (shortness of breath) Musc Denies numbness and Denies tingling Neuro Denies dizziness, Denies headache(s), Denies numbness, Denies tingling and Denies weakness Psych Denies anxiety and Denies depression Endo Denies fatigue Aller/Immun Denies wheezing Physical exam (Primary Care) Vital Signs: Last Vital Signs Temp 97.5 F 06/21/25 14:16 Pulse 73 06/21/25 14:16 Resp 16 06/21/25 14:16 BP 110/66 06/21/25 14:16 Pulse Ox 96 06/21/25 14:16 Oxygen Delivery Method Room Air 06/21/25 14:16 BMI result Body Mass Index 21.8 Tobacco/Smoking Status: Tobacco use Status Tobacco use date assessed 07/12/24 06/21/25 14:18 Patient Tobacco Use Status Never used Tobacco 06/21/25 14:18 e-Cigarette/Vaping Use Never Used 06/21/25 14:18 Thrive Assessment: Date of Thrive Assessment Date Thrive assessed 08/18/24 06/21/25 14:18 Currently or been in a relationship where the following occur: No concerns reported Const General: well developed; No acute distress Nutritional Appearance: well nourished Orientation/consciousness: patient oriented x3 HENMT Head: Yes normocephalic and Yes atraumatic Eyes General: appearance normal, both eyes and all related structures Pupils: Equal, round and reactive pupils present EOM: EOMs intact bilaterally Resp Effort & Inspection: normal respiratory effort Neuro General: patient oriented x3 and gait normal Cranial nerves: Yes Equal, round and reactive pupils present Psych Affect: normal affect Coding Level of Care Code Est Pt Level 4 (75728) Diagnoses Joint pain M25.50 Abdominal pain R10.9 Rib pain on right side R07.89 Assessment & Plan Assessment & Plan (1) Joint pain: Code(s): M25.50 - Pain in unspecified joint Category: Medical Plan: Left 4th and 5th finger stiffness and slowness Circulation and sensation intact Strength is normal Likely some tendonitis. Check inflammatory markers and x-ray Will follow-up with patient. If no explanation is found in symptoms are not improved with short course of the NSAIDs, will discuss referral May need referral to neuro (2) Abdominal pain: Code(s): R10.9 - Unspecified abdominal pain Category: Medical (3) Rib pain on right side: Code(s): R07.89 - Other chest pain Category: Medical Plan Right upper quadrant/right costal margin discomfort. Ultrasound was negative Rechecking lab work Likely costochondritis or rectus muscle insertion strain As above, trying a short course of NSAID Also ice and heat Will follow-up with patient at upcoming appointment. Patient is followed by Gastroenterology and they are recommending avoiding NSAIDs. Using a short course of celecoxib; will hopefully not irritate his stomach. Discontinue if it does. Otherwise will discontinue at the end of trial and we can discuss other treatments. Orders: Orders Erythrocyte Sedimentation Rate Today M25.50 - Pain in unspecified joint Rheumatoid Factor Today M25.50 - Pain in unspecified joint XR hand LT min 3V Today M25.50 - Pain in unspecified joint XR ribs RT min 3V w CXR1V Today R07.89 - Other chest pain Complete Blood Count Auto Diff Today M25.50 - Pain in unspecified joint, Z00.00 - Encounter for general adult medical examination without abnormal findings Comprehensive Met. Panel Today M25.50 - Pain in unspecified joint CRP High Sensitivity Today M25.50 - Pain in unspecified joint Medications: New celecoxib 200 mg PO BID PRN 42 caps 0RF pain 21 days M25.50 - Pain in unspecified joint
[2025-06-21 14:16] VITALS: BP 110/66; PULSE 73; RESP 16; TEMP 36.4; O2SAT 96; BMI 21.8
--- OUTSIDE RECORDS SUMMARY | 2025-06-22 02:02 | XMS_ITS | Data Portability ---
Author Organization [place] [facility], PAIN OFFICE Address [address] [facility] [address] [place] [address] Care Team Providers Care Paper Feeder Name Role Phone Dodie ALMONTE Referring Provider CHAZ LAWRENCE Primary Care Provider Assessment Encounter Date Assessment Date Assessment LastModified by Organization Details LastModified Time 06/23/2024 06/23/2024 Ha Fletcher is a 48 [...] same after insurance approval. 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 [email or web address] [...] as needed. [email or web address] Not available 11/08/2024 14:49:05 03/08/2025 03/08/2025 Ha Fletcher is a 49 year old [...] same after insurance approval. 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 [email or web address] Not available 03/08/2025 15:24:45 04/20/2025 04/20/2025 Ha Fletcher is a 49 year old [...] follow up as needed. [email or web address] Not available 04/20/2025 14:28:13 Plan of Treatment Reminders Order Date Submit [...] Modified By Organization Details Last Modified Time 06/23/2024 [id number] He was advised against bed rest lasting longer than four days and to continue activities as tolerated. [email or web address] Not available 06/23/2024 15:22:58 09/30/2024 [id number] He was advised against bed rest lasting longer than four days and to continue activities as tolerated. [email or web address] Not available 09/30/2024 10:15:48 11/08/2024 [id number] He was advised against bed rest lasting longer than four days and to continue activities as tolerated. [email or web address] Not available 11/08/2024 14:47:50 03/08/2025 [id number] He was advised against bed rest lasting longer than four days and to continue activities as tolerated. [email or web address] Not available 03/08/2025 15:24:50 04/20/2025 [id number] He was advised against bed rest lasting longer than four days and to continue activities as tolerated. [email or web address] Not available 04/20/2025 14:28:18 Reason for Referral None Reported. Problems Name Problem SNOMED Code Status Onset Date Resolution Date Notes Provider Name and Address Organization Details Recorded Time Lumbar spondylolis thesis 3573730962601 02 Active Ly castorena MD [address] , [address], [place], [address], [facility] - [facility] 2 11:18:37 Lumbar radiculopat hy 410378615 Active Ly castorena MD [address] , [address], [place], [address], [place] [facility] 11:18:50 Degeneratio n of lumbar interverteb ral disc 01978322 Active 2021 Ly castorena MD [address] , [address], [place], [address], [place] [facility] 10:47:32 Problem Notes None recorded. Procedures Surgical History Date Name Laterality Status Provider Name and Address Organization Details Recorded Time 04/20/20 25 Lumbar Epidural steroid injection under fluoroscopic guidance completed Ly Webb MD [address] , [address], [place], [address], [place] [facility] 04/20/2025 14:29:15 11/09/19 25 Lumbar Epidural steroid injection under fluoroscopic guidance completed Ly Webb MD [address] , [address], [place], [address], [place] [facility] 11/08/2024 14:48:35 06/23/20 24 Lumbar Epidural steroid injection under fluoroscopic guidance completed Ly Webb MD [address] , [address], [place], [address], [place] [facility] 06/23/2024 15:23:41 02/09/20 24 Lumbar Epidural steroid injection under fluoroscopic guidance completed Ly Webb MD [address] , [address], [place], [address], [place] [facility] 02/09/2024 08:52:21 09/17/19 24 Lumbar Epidural steroid injection under fluoroscopic guidance completed Ly Webb MD [address] , [address], [place], [address], [place] [facility] 09/17/2023 09:47:48 11/27/19 23 Lumbar Epidural steroid injection under fluoroscopic guidance completed Ly Webb MD [address] , [address], [place], [address], [place] [facility] 11/26/2022 13:45:55 09/24/19 23 Lumbar Epidural steroid injection under fluoroscopic guidance completed Ly Webb MD [address] [facility] , [address], [place], [address], [place] [facility] 09/24/2022 14:42:40 Knee Surgery completed Ly Webb MD [address] [facility] , [address], [place], [address], [place] [facility] 07/24/2022 10:51:49 Imaging Results None recorded. Procedure Notes None recorded. Medical Equipment None Reported. Allergies Allergen ID Allergen Name Allergen Category Reaction Reaction Severity Criticality Documentation Date Start Date Code Code System Note Provider Name and Address Organization Details Recorded Time morphine medicatio n nausea mild Not available 07/24/2022 7052 RxNorm Ly castorena MD [address] [facility] , [address], [place], [address], [place] - [facility] 2 10:45:38 amoxicill in medicatio n nausea moderate low 07/30/2023 723 RxNorm Eri [facility], [place] - [facility] 3 10:19:36 [...] TABLET EVERY 8 HOURS NEEDED FOR PAIN 03/08 completed Not Available Not Available Not Available meloxicam 15 mg tablet TAKE 1 [...] Available Not Available pantoprazol e 40 mg tablet,stepahnie yed release TAKE 1 TABLET BY MOUTH EVERY DAY active Not Available Not Available No [...] 480 ML ORALLY FOR COLONOSCO PY PREP 04/20 completed Not Available Not Available Not Available Paxlovid 300 mg (150 mg x 2)-100 mg tablets in a dose pack TAKE #2 150MG NIRMATREL VIR AND #1 100MG RITONAVIR TWO TIMES A DAY FOR 5 DAYS 07/30 completed Not Available Not Available Not Available Vitals Date Recorded Body height Heart rate Oxygen saturation Oxygen saturation in Arterial blood by Pulse oximetry Pain severity - 0-10 verbal numeric rating [Score] - Reported Body mass index (BMI) Body weight Systolic And Diastolic Provider Name and Address Organization Details Last Updated DateTime 5 177.8 cm 68 /min 100 % 100 % 6 21.5 kg/m2 33177.8 6 g 125/79 mm[Hg] Ly castorena MD [address] [facility] , [address], [place], [address], [place] - [facility] 5 [...] saturation in Arterial blood by Pulse oximetry Pain severity - 0-10 verbal numeric rating [Score] - Reported Systolic And Diastolic Provider Name and Address Organization Details Last Updated DateTime 5 177.8 cm 60 /min 96 % 96 % 5 112/79 mm[Hg] Stephanie corbett [place] - [facility] 5 15:04:54 Date Recorded Body height Heart rate Oxygen saturation Oxygen saturation in Arterial blood by Pulse oximetry Systolic And Diastolic Provider Name and Address Organization Details Last Updated DateTime 5 177.8 cm 65 /min 98 % 98 % 117/75 mm[Hg] Ly castorena MD [address] [employer] [facility] , [address], [place], [address], [place] - [facility] 5 11:32:20 Date Recorded Body height Pain severity - 0-10 verbal numeric rating [Score] - Reported Oxygen saturation Oxygen saturation in Arterial blood by Pulse oximetry Heart rate Systolic And Diastolic Provider Name and Address Organization Details Last Updated DateTime 4 177.8 cm 1 96 % 96 % 74 /min 106/70 mm[Hg] Stephanie corbett [place] - [facility] 4 14:59:16 Social History Question Answer Notes LastModified by Organizat ion Details LastModified Time Tobacco Smoking Status Never Smoker Ly Webb MD [address] , [address], [place], [address], [place] - [facility] 07/24/2022 10:50:54 Are You Blind Or Do You Have Difficulty Seeing? No Information not available 07/24/2022 Are You Deaf Or Do You Have Serious Difficulty Hearing? No Information not available 07/24/2022 What Is The Highest Grade Or Level Of School You Have Completed Or The Highest Degree You Have Received? 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 No Information not available 07/24/2022 Mental Status [...] UNSPECIFIED 08/03/2023 completed Eri saini [place] - [facility] 09/17/2023 09:25:50 Past Encounters Encounter ID Performer Location Encounter Start Date Encounter Closed Date Diagnosis/Indication Diagnosis SNOMED-CT Code Diagnosis ICD10 Code Diagnosis IMO Codes Diagnosis Note [id number] Ly Webb MD PAIN OFFICE [address] [place] [address] [address] [place] [address] 07/24/2022 10:11:09 07/24/2022 11:30:11 Degeneration of lumbar intervertebral disc 89948285 M51.36 Lumbar radiculopathy 128 325507 M54.16 [id number] Ly Webb MD [facility] PA[facility] [address] [facility] [place] [address] 09/24/2022 14:01:38 09/24/2022 15:09:25 Degeneration of lumbar intervertebral disc 21898125 M51.36 Lumbar radiculopathy 128 532074 M54.16 [id number] Ly Webb MD [facility] PA[facility] [address] [facility] [place] [address] 10/31/2022 10:44:39 10/31/2022 11:00:47 Degeneration of lumbar intervertebral disc 19042669 M51.36 Lumbar radiculopathy 128 193800 M54.16 [id number] Ly Webb MD [facility] PA[facility] [address] [facility] [place] [address] 11/26/2022 13:26:08 11/26/2022 13:51:19 Degeneration of lumbar intervertebral disc 03098419 M51.36 Lumbar radiculopathy 128 046258 M54.16 [id number] Ly Webb MD [facility] PA[facility] OFFICE [address] [facility] [place] [address] 07/30/2023 10:15:10 07/30/2023 10:51:10 Lumbar radiculopathy 981562716 M54.16 Degenerati on of lumbar intervertebral disc 01522335 M51.36 [id number] Ly Webb MD [facility] PAIN OFFICE [address] [facility] [place] [address] 09/17/2023 09:16:29 09/17/2023 10:28:40 Degeneration of lumbar intervertebral disc 03671998 M51.36 Lumbar radiculopathy 128 419264 M54.16 [id number] Ly Webb MD [facility] PA[facility] OFFICE [address] [facility] [place] [address] 12/17/2023 13:26:00 12/17/2023 13:59:05 Lumbar radiculopathy 301137872 M54.16 Degenerati on of lumbar intervertebral disc 60646968 M51.36 [id number] Ly Webb MD PAIN OFFICE [address] [facility] [place] [address] 02/09/2024 08:17:18 02/09/2024 11:29:16 Lumbar radiculopathy 812612452 M54.16 Lumbar spondylolisthesis 4136957380 59130 M43.16 Degenerati on of lumbar intervertebral disc 38573802 M51.36 [id number] Ly Webb MD PAIN OFFICE [address] [facility] [place] [address] 05/13/2024 09:52:03 05/13/2024 10:16:43 Lumbar radiculopathy 070402548 M54.16 Lumbar spondylolisthesis 5049332496 18053 M43.16 Degenerati on of lumbar intervertebral disc 83315800 M51.362 [id number] Ly Webb MD PAIN OFFICE [address] [facility] [place] [address] 06/23/2024 14:50:17 06/23/2024 15:28:41 Lumbar spondylolisthesis 3520876579 50852 M43.16 Lumbar radiculopathy 128 467346 M54.16 Degenerati on of lumbar intervertebral disc 21016793 M51.362 [id number] Ly Webb MD PAIN OFFICE [address] [facility] [place] [address] 09/30/2024 09:57:20 09/30/2024 10:18:01 Lumbar radiculopathy 793857785 M54.16 Lumbar spondylolisthesis 9314105074 03707 M43.16 Degenerati on of lumbar intervertebral disc 45663809 M51.362 [id number] Ly Webb MD PAIN OFFICE [address] [facility] [place] [address] 11/08/2024 14:22:57 11/08/2024 16:47:38 Lumbar spondylolisthesis 0612538934 05488 M43.16 Degenerati on of lumbar intervertebral disc 59101439 M51.362 Lumbar radiculopathy 128 462117 M54.16 [id number] Ly Webb MD PAIN OFFICE [address] [place] [address] 03/08/2025 14:58:33 03/08/2025 15:28:58 Lumbar radiculopathy 115722834 M54.16 Lumbar spondylolisthesis 3425698657 76881 M43.16 Degenerati on of lumbar intervertebral disc 98568404 M51.362 [id number] Ly Webb MD PAIN OFFICE [address] [place] [address] 04/20/2025 11:26:44 04/20/2025 14:35:07 Lumbar spondylolisthesis 4905215676 62251 M43.16 Lumbar radiculopathy 128 997275 M54.16 Degenerati on of lumbar intervertebral disc 85096710 M51.362 Health Concerns Section Related Observation LastModified by Organization Detai ls LastModified Time None Recorded Concern Status LastModified by Organization Details LastModified Time None Recorded Advance Directives Directive None Recorded Payers Insurance Date Sequence Insurance Name Policy Number Policy Ceja Covered Member ID Ceja Member ID Guarantor Name 04/17/2025 1 [facility] - HEALTH NET PLAN (MEDICAID HMO) [facility] Ha Fletcher [id number] Ha Fletcher Notes Date Note Type Note Provider Name and Address Organization Details Recorded Time 06/23/2024 text/html He is here today for a lumbar epidural steroid injection under fluoroscopic guidance. He has seen Dr. Stevie Ohara and he does not recommend surgery at time. Ly Webb MD [address] , [address], [place], [address], [facility] Pain Management 06/23/2024 15:34:49 09/30/2024 text/html Ha [...] some pain benefit Ly Webb MD [address] [facility] , [address], [place], [address], [facility] - Pain Management 09/30/2024 10:56:28 11/08/2024 text/html He is here today for a lumbar epidural steroid injection under fluoroscopic guidance. Ly Webb MD [address] [facility] , [address], [place], [address], [facility] - Pain Management 11/08/2024 16:52:38 03/08/2025 text/html Ha Fletcher is a 49 year old man with complaints of low [...] epidural steroid injection under fluoroscopic guidance on 11/08/2024. He reports 90% pain relief for 3 months. He has return of pain back to baseline.. He has no history of bladder or bowel incontinence.He has seen Dr. Ohara. He wants to hold off on surgery . He has knee arthritis and is using a knee brace with some pain benefit yL Webb MD [address] [facility] , [address], [place], [address], [facility] - Pain Management 03/08/2025 15:35:29 04/20/2025 text/html He is here today for a lumbar epidural steroid injection under fluoroscopic guidance. Ly Webb MD [address] [facility] , [address], [place], [address], [facility] - Pain Management 04/20/2025 14:37:44
--- OUTSIDE RECORDS SUMMARY | 2025-06-22 02:02 | XMS_ITS | Continuity of Care Document ---
Author Organization [place] - [facility], PAIN OFFICE Address [address] [facility] [address] [place] [address] Care Team Providers Care Furnace Worker Name Role Phone Dodie ALMONTE Referring Provider CHAZ LAWRENCE Primary Care Provider [phone] Assessment Encounter Date Assessment Date Assessment LastModified by Organization Details LastModified Time 04/20/2025 04/20/2025 Ha Fletcher is a 49 [...] Modified By Organization Details Last Modified Time 04/20/2025 [id number] He was advised against bed rest lasting longer than four days and to continue activities as tolerated. [email or web address] Not available 04/20/2025 14:28:18 Reason for Referral None Reported. Problems Name Problem SNOMED Code Status Onset Date Resolution Date Notes Provider Name and Address Organization Details Recorded Time Lumbar spondylolis thesis 2569095332486 02 Active Ly castorena MD [address] , [address], [place], [address], [place] [facility] 2 11:18:37 Lumbar radiculopat hy 538837619 Active Ly castorena MD [address] , [address], [place], [address], [place] [facility] 2 11:18:50 Degeneratio n of lumbar interverteb ral disc 19925914 Active 2021 Ly castorena MD [address] , [address], [place], [address], [place] [facility] 10:47:32 Problem Notes None recorded. Procedures Surgical History Date Name Laterality Status Provider Name and Address Organization Details Recorded Time 04/20/20 25 Lumbar Epidural steroid injection under fluoroscopic guidance completed Ly Webb MD [address] , [address], [place], [address], [place] [facility] 04/20/2025 14:29:15 11/09/19 25 Lumbar Epidural steroid injection under fluoroscopic guidance completed Ly Webb MD [address] , [address], [place], [address], [place] [facility] 11/08/2024 14:48:35 06/23/20 24 Lumbar Epidural steroid injection under fluoroscopic guidance completed Ly Webb MD [address] , [address], [place], [address], [place] [facility] 06/23/2024 15:23:41 02/09/20 24 Lumbar Epidural steroid injection under fluoroscopic guidance completed Ly Webb MD [address] , [address], [place], [address], [place] [facility] 02/09/2024 08:52:21 09/17/19 24 Lumbar Epidural steroid injection under fluoroscopic guidance completed Ly Webb MD [address] , [address], [place], [address], [place] [facility] 09/17/2023 09:47:48 11/27/19 23 Lumbar Epidural steroid injection under fluoroscopic guidance completed Ly Webb MD [address] , [address], [place], [address], [place] [facility] 11/26/2022 13:45:55 09/24/19 23 Lumbar Epidural steroid injection under fluoroscopic guidance completed Ly Webb MD [address] , [address], [place], [address], [place] [facility] 09/24/2022 14:42:40 Knee Surgery completed Ly Webb MD [address] , [address], [place], [address], [place] [facility] 07/24/2022 10:51:49 Imaging Results None recorded. Procedure Notes None recorded. Medical Equipment None Reported. Allergies Allergen ID Allergen Name Allergen Category Reaction Reaction Severity Criticality Documentation Date Start Date Code Code System Note Provider Name and Address Organization Details Recorded Time 68036 morphine medicatio n nausea mild Not available 07/24/2022 7052 RxNorm Ly castorena MD [address] , [address], [place], [address], [place] [facility] 2 10:45:38 18867 amoxicill in medicatio n nausea moderate low [...] % 117/75 mm[Hg] Ly castorena MD [address] , [address], [place], [address], [place] [facility] 5 11:32:20 Social History Question Answer Notes LastModified by Organizat ion Details LastModified Time Tobacco Smoking Status Never Smoker Ly Webb MD [address] , [address], [place], [address], [place] [facility] 07/24/2022 10:50:54 Are You Blind Or Do You Have Difficulty Seeing? No Information not available 07/24/2022 Are You Deaf Or Do You Have Serious Difficulty Hearing? No Information not available 07/24/2022 What Is The Highest Grade Or Level Of School You Have Completed Or The Highest Degree You Have Received? 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 [employer] Information not available 07/24/2022 Do [...] ICD10 Code Diagnosis IMO Codes Diagnosis Note [id number] Ly Webb MD PAIN OFFICE [address] [facility] [place] [address] 04/20/2025 11:26:44 04/20/2025 14:35:07 Lumbar spondylolisthesis 9775491940 77874 M43.16 Lumbar radiculopathy 128 795432 M54.16 Degenerati on of lumbar intervertebral disc 83328612 M51.362 Health Concerns Section Related Observation LastModified by Organization Detai ls LastModified Time None Recorded Concern Status LastModified by Organization Details LastModified Time None Recorded Payers Encounter Date Sequence Insurance Name Policy Number Policy Ceja Covered Member ID Ceja Member ID Guarantor Name 04/20/2025 1 [facility] - HEALTH NET PLAN (MEDICAID HMO) MATA Fletcher [id number] Ha Fletcher Notes Date Note Type Note Provider Name and Address Organization Details Recorded Time 04/20/2025 text/html He is here today for a lumbar epidural steroid injection under fluoroscopic guidance. Ly Webb MD [address] , [address], [place], [address], [facility] - Pain Management 04/20/2025 14:37:44
== END 2025-06-21 14:50 | disposition home or self-care (01) ==
LOC: HO.HMCFM 13:53
PROVIDERS: PCP Family Medicine; Visit Provider Family Medicine
DX: M25.50 Pain in unspecified joint (principal); R10.9 Unspecified abdominal pain; R07.89 Other chest pain

== ENCOUNTER → 2025-06-21 13:52 | Outpatient (BNVA) | payer OTHER, SELFPAY | PROVIDERS: PCP Family Medicine; Visit Provider Family Medicine | DX: R07.89 Other chest pain (principal); M25.50 Pain in unspecified joint; R10.9 Unspecified abdominal pain | CPT/HCPCS: 99212 ==

== ENCOUNTER 2025-06-28 14:29 | Outpatient (REF) | payer OTHER, SELFPAY ==
--- NOTE | ~2025-06-28 | XR_ITS ---
EXAMINATION: XR HAND, LEFT CLINICAL INFORMATION: M25.50 - Pain in unspecified joint COMPARISON: None available. TECHNIQUE: PA, lateral, and oblique views of the left hand. FINDINGS: No acute fracture, deformity, joint space narrowing, osteophytes, or erosions. XR/XR hand LT min 3V IMPRESSION: Unremarkable left hand Electronically signed by: Rob Oleary MD 06/28/2025 03:06 PM DWAIN
--- NOTE | ~2025-06-28 | XR_ITS ---
EXAMINATION: XR RIBS 3 VIEWS MINIMUM WITH CHEST RIGHT HISTORY: R07.89 - Other chest pain COMPARISON: Comparison is made with the prior examination of the chest dated 01/17/2025. FINDINGS: A single PA view of the chest and 3 views of the right ribs are submitted. Lungs are expanded and clear. There is no pleural effusion, pneumothorax, or pulmonary vascular congestion. The heart is normal in size. The bones are intact. No right rib fracture is seen. XR/XR ribs RT min 3V w CXR1V IMPRESSION: No acute cardiopulmonary abnormality. No evidence of fracture of the right ribs. Electronically signed by: Terry Tejeda MD 06/28/2025 03:07 PM EST
[2025-06-28 15:19] LABS: MANUAL DIFF FLAG NO
[2025-06-28 16:48] LABS: Hematocrit 45.4 % (42.0-52.0); Hemoglobin 15.4 g/dl (14.0-18.0); Imm Gran Abs Auto 0.01 X10*3/uL (0.00-0.03); Imm Gran Pct Auto 0.2 % (0.0-0.4); Lymphocytes Absolute Auto 1.4 X10*3/uL (1.2-4.9); Mean Corpuscular HGB Conc 33.9 g/dl (31.0-36.0); Mean Corpuscular Hemoglobin 30.9 pg (27.0-33.0); Mean Corpuscular Volume 91.2 fL (80.0-98.0); NRBC Abs Auto 0.000 X10*3/uL (0.0-0.012); NRBC Pct Auto 0.0 /100WBC (0.0-0.2); Platelet Count 260 X10*3/uL (160-400); Red Blood Count 4.98 X10*6/uL (4.60-5.80); White Blood Count 4.9 X10*3/uL (4.8-10.8)
--- OUTSIDE RECORDS SUMMARY | 2025-06-28 17:18 | XMS_ITS | Data Portability ---
Author Organization [place] [facility] OFF[facility] Address [address] [facility] [address] [place] [address] Care Team Providers Care Plate Furnace Operator Name Role Phone Dodie ALMONTE Referring Provider [...] same after insurance approval. He needs a buggy driver on the day of the procedure. [...] same after insurance approval. He needs a buggy driver on the day of the procedure. [...] By Organization Details Last Modified Time 06/23/2024 [id number] He was advised against bed rest lasting longer than four days and to continue activities as tolerated. [email or web address] Not available 06/23/2024 15:22:58 09/30/2024 77146 He was advised against bed rest lasting longer than four days and to continue activities as tolerated. [email or web address] Not available 09/30/2024 10:15:48 11/08/2024 [id number] He was advised against bed rest lasting longer than four days and to continue activities as tolerated. [email or web address] Not available 11/08/2024 14:47:50 03/08/2025 20260 He was advised against bed rest lasting longer than four days and to continue activities as tolerated. [email or web address] Not available 03/08/2025 15:24:50 04/20/2025 05365 He was advised against bed rest lasting longer than four days and to continue activities as tolerated. [email or web address] Not available 04/20/2025 14:28:18 Reason for Referral None Reported. Problems Name Problem SNOMED Code Status Onset Date Resolution Date Notes Provider Name and Address Organization Details Recorded Time Lumbar spondylolis thesis 8778873313016 02 Active Ly castorena MD [address] , [address], [place], [address], [facility] - Pain Management 2 11:18:37 Lumbar radiculopat hy 994986042 Active Ly castorena MD [address] , [address], [place], [address], [place] - [facility] 11:18:50 Degeneratio n of lumbar interverteb ral disc 39695439 Active 2021 Ly castorena MD [address] , [address], [place], [address], [place] [facility] 10:47:32 Problem Notes None recorded. Procedures Surgical History Date Name Laterality Status Provider Name and Address Organization Details Recorded Time 04/20/20 25 Lumbar Epidural steroid injection under fluoroscopic guidance completed Ly Webb MD [address] , [address], [place], [address], [place] [facility] 04/20/2025 14:29:15 11/09/19 25 Lumbar Epidural steroid injection under fluoroscopic guidance completed Ly Webb MD [address] , [address], [place], [address], [place] [facility] 11/08/2024 14:48:35 06/23/20 24 Lumbar Epidural steroid injection under fluoroscopic guidance completed Ly Webb MD [address] , [address], [place], [address], [place] [facility] 06/23/2024 15:23:41 02/09/20 24 Lumbar Epidural steroid injection under fluoroscopic guidance completed Ly Webb MD [address] , [address], [place], [address], [place] [facility] 02/09/2024 08:52:21 09/17/19 24 Lumbar Epidural steroid injection under fluoroscopic guidance completed Ly Webb MD [address] , [address], [place], [address], [place] [facility] 09/17/2023 09:47:48 11/27/19 23 Lumbar Epidural steroid injection under fluoroscopic guidance completed Ly Webb MD [address] , [address], [place], [address], [place] [facility] 11/26/2022 13:45:55 09/24/19 23 Lumbar Epidural steroid injection under fluoroscopic guidance completed Ly Webb MD [address] [facility] , [address], [place], [address], [place] [facility] 09/24/2022 14:42:40 Knee Surgery completed Ly Webb MD [address] [facility] , [address], [place], [address], [place] [facility] 07/24/2022 10:51:49 Imaging Results None recorded. Procedure Notes None recorded. Medical Equipment None Reported. Allergies Allergen ID Allergen Name Allergen Category Reaction Reaction Severity Criticality Documentation Date Start Date Code Code System Note Provider Name and Address Organization Details Recorded Time morphine medicatio n nausea mild Not available 07/24/2022 7052 RxNorm Ly castorena MD [address] [facility] , [address], [place], [address], [place] - [facility] 2 10:45:38 amoxicill in medicatio n nausea moderate low 07/30/2023 723 RxNorm Eri Castro [facility], [place] - [facility] 3 [...] Recorded Body height Heart rate Oxygen saturation Pain severity - 0-10 verbal numeric rating [Score] - Reported Body mass index (BMI) Body weight Systolic And Diastolic Provider Name and Address Organization Details Last Updated DateTime 5 177.8 cm 68 /min 100 % 6 21.5 kg/m2 38197.8 6 g 125/79 mm[Hg] Ly castorena MD [address] [facility] , [address], [facility] [place], [address], [place] - [facility] 5 10:05:18 Date Recorded Body height Heart rate Oxygen saturation Systolic And Diastolic Provider Name and Address Organization Details Last Updated DateTime 11/08/2024 177.8 cm 70 /min 98 % 108/73 mm[Hg] Maryanne Vargas [place] - [facility] 11/08/2024 14:28:20 Date Recorded Body height Heart rate Oxygen saturation Pain severity - 0-10 verbal numeric rating [Score] - Reported Systolic And Diastolic Provider Name and Address Organization Details Last Updated DateTime 5 177.8 cm 60 /min 96 % 5 112/79 mm[Hg] Stephanie Toni [place] - [facility] 5 15:04:54 Date Recorded Body height Heart rate Oxygen saturation Systolic And Diastolic Provider Name and Address Organization Details Last Updated DateTime 04/20/2025 177.8 cm 65 /min 98 % 117/75 mm[Hg] Ly Webb MD [address] , [address], [place], [address] , [place] [facility] 04/20/2025 11:32:20 Date Recorded Body height Pain severity - 0-10 verbal numeric rating [Score] - Reported Oxygen saturation Heart rate Systolic And Diastolic Provider Name and Address Organization Details Last Updated DateTime 4 177.8 cm 1 96 % 74 /min 106/70 mm[Hg] Stephanie Toni [place] - [facility] 4 14:59:16 Social History Question Answer Notes LastModified by Organizat ion Details LastModified Time Tobacco Smoking Status Never Smoker Ly Webb MD [address] , [address], [place], [address], [place] [facility] 07/24/2022 10:50:54 Are You Blind Or Do You Have Difficulty Seeing? No Information not available 07/24/2022 Are You Deaf Or Do You Have Serious Difficulty Hearing? No Information not available 07/24/2022 What Is The Highest Grade Or Level Of School You Have Completed Or The Highest Degree You Have Received? 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 [employer] Information not available 07/24/2022 Do [...] ICD10 Code Diagnosis IMO Codes Diagnosis Note [id number] Ly Webb MD PAIN OFFICE [address] [place] [address],[facility] [address] [facility] [place] [address] 07/24/2022 10:11:09 07/24/2022 11:30:11 Degeneration of lumbar intervertebral disc 60371455 M51.36 Lumbar radiculopathy 128 863194 M54.16 [id number] Ly Webb MD [facility] PA[facility]ICE [address] [facility] [place] [address] 09/24/2022 14:01:38 09/24/2022 15:09:25 Degeneration of lumbar intervertebral disc 67619325 M51.36 Lumbar radiculopathy 128 667448 M54.16 20131 Ly Webb MD [facility] PA[facility] OFFICE [address] [facility] [place] [address] 10/31/2022 10:44:39 10/31/2022 11:00:47 Degeneration of lumbar intervertebral disc 71823376 M51.36 Lumbar radiculopathy 128 241317 M54.16 [id number] Ly Webb MD [facility] PA[facility] OFFICE [address] [facility] [place] [address] 11/26/2022 13:26:08 11/26/2022 13:51:19 Degeneration of lumbar intervertebral disc 88250758 M51.36 Lumbar radiculopathy 128 855755 M54.16 38007 Ly Webb MD [facility] PAIN OFFICE [address] [place] [address] 07/30/2023 10:15:10 07/30/2023 10:51:10 Lumbar radiculopathy 406522891 M54.16 Degenerati on of lumbar intervertebral disc 24872866 M51.36 [id number] Ly Webb MD [facility] PAIN OFFICE [address] [place] [address] 09/17/2023 09:16:29 09/17/2023 10:28:40 Degeneration of lumbar intervertebral disc 18209886 M51.36 Lumbar radiculopathy 128 629323 M54.16 65914 Ly Webb MD [facility] PA[facility] OFF[facility] [address] [facility] [place] [address] 12/17/2023 13:26:00 12/17/2023 13:59:05 Lumbar radiculopathy 315531290 M54.16 Degenerati on of lumbar intervertebral disc 60780756 M51.36 22095 Ly Webb MD PAIN OFFICE [address] [place] [address] 02/09/2024 08:17:18 02/09/2024 11:29:16 Lumbar radiculopathy 934258598 M54.16 Lumbar spondylolisthesis 0775924422 51501 M43.16 Degenerati on of lumbar intervertebral disc 17769045 M51.36 [id number] Ly Webb MD PAIN OFFICE [address] [place] [address] [place] [address] 05/13/2024 09:52:03 05/13/2024 10:16:43 Lumbar radiculopathy 688816563 M54.16 Lumbar spondylolisthesis 0688097748 16588 M43.16 Degenerati on of lumbar intervertebral disc 65421843 M51.362 [id number] Ly Webb MD PAIN OFFICE [address] [place] [address] 06/23/2024 14:50:17 06/23/2024 15:28:41 Lumbar spondylolisthesis 9730775013 77192 M43.16 Lumbar radiculopathy 128 523043 M54.16 Degenerati on of lumbar intervertebral disc 62640094 M51.362 71704 Ly Webb MD PAIN OFFICE [address] [place] [address] [place] [address] 09/30/2024 09:57:20 09/30/2024 10:18:01 Lumbar radiculopathy 703777100 M54.16 Lumbar spondylolisthesis 6849385870 17584 M43.16 Degenerati on of lumbar intervertebral disc 75816711 M51.362 [id number] Ly Webb MD [facility] PAIN OFFICE [address] [place] [address] 11/08/2024 14:22:57 11/08/2024 16:47:38 Lumbar spondylolisthesis 5957692975 10914 M43.16 Degenerati on of lumbar intervertebral disc 76886015 M51.362 Lumbar radiculopathy 128 049089 M54.16 04390 Ly Webb MD PAIN OFFICE [address] [facility] [place] [address] 03/08/2025 14:58:33 03/08/2025 15:28:58 Lumbar radiculopathy 813550407 M54.16 Lumbar spondylolisthesis 6741035594 61752 M43.16 Degenerati on of lumbar intervertebral disc 49996371 M51.362 [id number] Ly Webb MD PAIN OFFICE [address] [facility] [place] [address] 04/20/2025 11:26:44 04/20/2025 14:35:07 Lumbar spondylolisthesis 3255208663 93480 M43.16 Lumbar radiculopathy 128 370965 M54.16 Degenerati on of lumbar intervertebral disc 49637316 M51.362 Health Concerns Section Related Observation LastModified by Organization Detai ls LastModified Time None Recorded Concern Status LastModified by Organization Details LastModified Time None Recorded Advance Directives Directive None Recorded Payers Insurance Date Sequence Insurance Name Policy Number Policy Ceja Covered Member ID Ceja Member ID Guarantor Name 04/17/2025 1 [facility] - HEALTH NET PLAN (MEDICAID HMO) [facility] Ha Fletcher [id number] Ha Fletcher Notes Date Note Type Note Provider Name and Address Organization Details Recorded Time 06/23/2024 text/html He is here today for a lumbar epidural steroid injection under fluoroscopic guidance. He has seen Dr. Stevie Ohara and he does not recommend surgery at time. Ly Webb MD [address] [facility] , [address], [place], [address], [facility] Pain Management 06/23/2024 15:34:49 09/30/2024 text/html Ha [...] some pain benefit Ly Webb MD [address] , [address], [place], [address], [facility] - Pain Management 09/30/2024 10:56:28 11/08/2024 text/html He is here today for a lumbar epidural steroid injection under fluoroscopic guidance. Ly Webb MD [address] , [address], [place], [address], [place] - [facility] 11/08/2024 16:52:38 03/08/2025 text/html [...] some pain benefit Ly Webb MD [address] [facility] , [address], [place], [address], [facility] Pain Management 03/08/2025 15:35:29 04/20/2025 text/html He is here today for a lumbar epidural steroid injection under fluoroscopic guidance. Ly Webb MD [address] [facility] , [address], [place], [address], [facility] Pain Management 04/20/2025 14:37:44
--- OUTSIDE RECORDS SUMMARY | 2025-06-28 17:18 | XMS_ITS | Continuity of Care Document ---
Author Organization [facility], PAIN OFFICE Address [address] [facility] [address] [place] [address] Care Team Providers Care Director Federal Name Role Phone Dodie ALMONTE Referring Provider [...] By Organization Details Last Modified Time 04/20/2025 [id number] He was advised against bed rest lasting longer than four days and to continue activities as tolerated. [email or web address] Not available 04/20/2025 14:28:18 Reason for Referral None Reported. Problems Name Problem SNOMED Code Status Onset Date Resolution Date Notes Provider Name and Address Organization Details Recorded Time Lumbar spondylolis thesis 6975299516108 02 Active Ly castorena MD [address] , [address], [place], [address], [place] [facility] 2 11:18:37 Lumbar radiculopat hy 294259883 Active Ly castorena MD [address] , [address], [place], [address], [place] [facility] 2 11:18:50 Degeneratio n of lumbar interverteb ral disc 83998990 Active 2021 Ly castorena MD [address] , [address], [place], [address], [place] [facility] 10:47:32 Problem Notes None recorded. Procedures Surgical History Date Name Laterality Status Provider Name and Address Organization Details Recorded Time 04/20/20 25 Lumbar Epidural steroid injection under fluoroscopic guidance completed Ly Webb MD [address] , [address], [place], [address], [place] [facility] 04/20/2025 14:29:15 11/09/19 25 Lumbar Epidural steroid injection under fluoroscopic guidance completed Ly Webb MD [address] , [address], [place], [address], [place] [facility] 11/08/2024 14:48:35 06/23/20 24 Lumbar Epidural steroid injection under fluoroscopic guidance completed Ly Webb MD [address] , [address], [place], [address], [place] [facility] 06/23/2024 15:23:41 02/09/20 24 Lumbar Epidural steroid injection under fluoroscopic guidance completed Ly Webb MD [address] , [address], [place], [address], [place] [facility] 02/09/2024 08:52:21 09/17/19 24 Lumbar Epidural steroid injection under fluoroscopic guidance completed Ly Webb MD [address] , [address], [place], [address], [place] [facility] 09/17/2023 09:47:48 11/27/19 23 Lumbar Epidural steroid injection under fluoroscopic guidance completed Ly Webb MD [address] , [address], [place], [address], [place] [facility] 11/26/2022 13:45:55 09/24/19 23 Lumbar Epidural steroid injection under fluoroscopic guidance completed Ly Webb MD [address] , [address], [place], [address], [place] [facility] 09/24/2022 14:42:40 Knee Surgery completed Ly Webb MD [address] , [address], [place], [address], [place] [facility] 07/24/2022 10:51:49 Imaging Results None recorded. Procedure Notes None recorded. Medical Equipment None Reported. Allergies Allergen ID Allergen Name Allergen Category Reaction Reaction Severity Criticality Documentation Date Start Date Code Code System Note Provider Name and Address Organization Details Recorded Time 25061 morphine medicatio n nausea mild Not available 07/24/2022 7052 RxNorm Ly castorena MD [address] , [address], [place], [address], [place] [facility] 2 10:45:38 09177 amoxicill in medicatio n nausea moderate low [...] % 117/75 mm[Hg] Ly Webb MD [address] , [address], [place], [address] , [place] [facility] 04/20/2025 11:32:20 Social History Question Answer Notes LastModified by Organizat ion Details LastModified Time Tobacco Smoking Status Never Smoker Ly Webb MD [address] , [address], [place], [address], [place] [facility] 07/24/2022 10:50:54 Are You Blind Or Do You Have Difficulty Seeing? No Information not available 07/24/2022 Are You Deaf Or Do You Have Serious Difficulty Hearing? No Information not available 07/24/2022 What Is The Highest Grade Or Level Of School You Have Completed Or The Highest Degree You Have Received? 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 [employer] Information not available 07/24/2022 Do [...] ICD10 Code Diagnosis IMO Codes Diagnosis Note [id number] Ly Webb MD PAIN OFFICE [address] [place] [address] 04/20/2025 11:26:44 04/20/2025 14:35:07 Lumbar spondylolisthesis 4908802752 38275 M43.16 Lumbar radiculopathy 128 055963 M54.16 Degenerati on of lumbar intervertebral disc 19980019 M51.362 Health Concerns Section Related Observation LastModified by Organization Detai ls LastModified Time None Recorded Concern Status LastModified by Organization Details LastModified Time None Recorded Payers Encounter Date Sequence Insurance Name Policy Number Policy Ceja Covered Member ID Ceja Member ID Guarantor Name 04/20/2025 1 [facility] (MEDICAID HMO) MATA Fletcher [id number] Ha Fletcher Notes Date Note Type Note Provider Name and Address Organization Details Recorded Time 04/20/2025 text/html He is here today for a lumbar epidural steroid injection under fluoroscopic guidance. Ly Webb MD [address] , [address], [place], [address], [facility] - Pain Management 04/20/2025 14:37:44
[2025-06-28 17:34] LABS: Alanine Aminotransferase 20 U/L (0-40); Albumin Level 4.7 g/dL (3.5-5.0); Alkaline Phosphatase 68 U/L (39-117); Anion Gap 12 (12-20); Aspartate Amino Transferase 22 U/L (5-37); Blood Urea Nitrogen 15 mg/dL (9-16); Calcium 9.7 mg/dL (8.4-10.2); Carbon Dioxide 30 mmol/L (22-29); Chloride 104 mmol/L (96-108); Estimated Glomerular Filt Rate > 60; Potassium 3.8 mmol/L (3.3-5.1); Sodium 142 mmol/L (135-145); Total Protein 7.3 g/dL (6.5-8.0)
== END 2025-06-28 14:30 | disposition home or self-care (01) ==
LOC: HO.LAB 14:29
PROVIDERS: PCP Family Medicine; Visit Provider Family Medicine
DX: Z00.00 Encounter for general adult medical examination without abnormal findings (principal); R07.89 Other chest pain; M25.50 Pain in unspecified joint
CPT/HCPCS: 36415; 71101; 73130; 80053; 85025; 85652; 86141; 86431

== ENCOUNTER → 2025-06-28 14:38 | Outpatient (BNV) | payer OTHER, SELFPAY | PROVIDERS: PCP Family Medicine; Visit Provider Radiology Diagnostic Radiology | DX: R07.89 Other chest pain (principal); M79.642 Pain in left hand | CPT/HCPCS: 71101; 73130 ==

== ENCOUNTER 2025-07-14 08:53 | Outpatient (AMB) | payer OTHER, SELFPAY ==
--- NOTE | 2025-07-14 09:05 | MHC.PC.OV ---
Vital Signs 07/14/25 09:12 Height 5 ft 10 in Weight 151 lb 2 oz BMI 21.7 BP 98/62 Blood Pressure Location Rt brachial Position Sitting Respiration 15 Pulse 72 Pulse Source Pulse Oximeter Temp 97.7 F Temp Source Temporal Artery Scan Pulse Oximetry (%) 96 Oxygen Delivery Method Room Air Intake Visit Reasons: cpe Intake Note: Ha presents in the office today for his annual physical. 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 Allergies amoxicillin Allergy (Mild, Verified 07/14/25 09:11) nausea, body aches, headaches, vomiting, body acheses morphine Adverse Reaction (Intermediate, Verified 07/14/25 09:11) nausea, vomiting Medication List - Last Reconciled 07/14/25 by Christopher Stoddard MD atorvastatin 20 mg PO BEDTIME gabapentin 300 mg PO TID PRN pantoprazole (Protonix) 40 mg PO DAILY 90 days trazodone 25 mg (1/2 x 50 mg) PO BEDTIME PRN 30 days Tobacco use date assessed: 07/14/25 Dental Screening Dental Screen Date: 07/14/25 Did you have a dental visit in the last 12 months?: Yes Did you have a dental problem in the last 6 months where you did not have access to dental care?: No Was dental information given to patient?: Patient has dentist HPI cpe HPI Details 49 y/o male presents for a CPE with f/u labs and health maintenance. No recent CPE labs to review. Pt had complaints of joint pain. L hand xray unremarkable. Pt also had complaints of RUQ/R costal margin discomfort. No acute cardiopulmonary abnormality, no evidence of fracture of the R ribs. A1C today 5.5%. Reports rash on flank/thighs. [facility] Medical History (Updated 07/14/25 @ 09:38 by Jhoan Lainez) Screening for prostate cancer Screening for colon cancer Abdominal pain Joint pain Dysphagia Preop examination Injury of left knee Injury of knee, right Left knee pain Pharyngitis Adult wellness visit Right knee pain Lumbar radiculopathy Upper back pain Diverticulitis Impacted cerumen of both ears Infection of fingernail Infection of finger Bilateral hip pain GERD (gastroesophageal reflux disease) Lumbar spondylosis Elevated cholesterol Low back pain Intercostal muscle pain Viral illness Adult general medical exam Atypical chest pain Screening for prostate cancer Laboratory examination ordered as part of a routine general medical examination Heartburn Right ankle swelling Depression Anxiety Surgical History H/O colonoscopy H/O right knee surgery Family History Paternal Aunt Colon cancer Mother Alzheimer dementia Social History (Updated 07/14/25 @ 09:12 by Kira Kamara CMA) Housing: House Alcohol intake: current Alcohol intake frequency: 0-2 drinks per day Alcohol type: beer Patient Tobacco Use Status: Never used Tobacco e-Cigarette/Vaping Use: Never Used Second Hand Smoke Exposure: No Substance Use Type: Marijuana service: No Current occupational status: employed 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 1. Little interest or pleasure in doing things: not at all 2. Feeling down, depressed, or hopeless: several days 3. Trouble falling or staying asleep, or sleeping too much: not at all 4. Feeling tired or having little energy: several days 5. Poor appetite or overeating: not at all 6. Feeling bad about yourself - or that you are a failure or have let yourself or your family down: not at all 7. Trouble concentrating on things, such as reading the newspaper or watching television: not at all 8. Moving or speaking so slowly that other people could have noticed. Or the opposite - being so fidgety or restless that you have been moving around a lot more than usual: not at all 9. Thoughts that you would be better off or of hurting yourself in some way: not at all Total score: 2 Depression Screening Interpretation: Negative Depression Screening Done: Yes 43694 - PHQ-9 Billing: Patient declined-do not bill Source: Developed by Drs. Terry Zacarias, July Sepulveda, Kev Ling and colleagues, with an educational lincoln from [employer]. Thrive Questionnaire Date Thrive assessed: 07/14/25 I am a: Patient What is your living situation today?: I have a steady place to live Within the past 12 months, did the food you bought not last and you didn't have the money to get more?: Never true Within the past 12 months, did you worry whether your food would run out before you got money to buy more?: Never true Do you have trouble paying for medicines?: No Do you have trouble getting transportation to medical appointments?: No Do you have trouble paying your heating and electricity bill?: No Do you have trouble taking care of your child, family member or friend?: No Do you have trouble with day-to-day activities such as bathing, preparing meals, shopping, managing finances, etc.?: No Are you currently unemployed and looking for a job?: No Are you interested in more education?: No Please select the resources that you would like help with: None Currently or been in a relationship where the following occur: No concerns reported THRIVE Score: 0 AUDIT C Alcohol Use Questionnaire (AUDIT-C) 1. How often do you have a drink containing alcohol?: Monthly or less 3. How often do you have six or more drinks on one occasion?: Never Total Score: 1 FAZAL-7 AMB Questionnaire FAZAL-7 Date FAZAL - 7 assessed: 07/14/25 Feeling nervous, anxious, or on edge: 1 = Several days Not being able to stop or control worryin = Not at all Worrying too much about different things: 1 = Several days Trouble relaxin = Not at all Being so restless that it is hard to sit still: 0 = Not at all Becoming easily annoyed or irritable: 1 = Several days Feeling afraid as if something awful might happen: 1 = Several days Total FAZAL-7 score (0-4 normal; 5-9 mild; 10-14 moderate; 15-21 severe): 4 Source: Developed by Drs. Terry Zacarias, July Sepulveda, Kev Ling and colleagues, with an educational lincoln from [employer]. FAZAL-7 Assessment Billing FAZAL-7 Assessment Tool: FAZAL-7 Assessment 54035 Review of Systems Const Denies chills, Denies fatigue, Denies fever(s), Denies headache(s) and Denies weakness Eyes Denies change in vision ENT Denies dizziness, Denies headache(s), Denies hearing loss, Denies nasal congestion, Denies sinus pain, Denies sinus pressure and Denies sore throat Card Denies chest pain, Denies lightheadedness, Denies dyspnea and Denies other (palpitations) Resp Denies cough, Denies dyspnea and Denies wheezing GI Denies abdominal pain, Denies melena, Denies hematochezia, Denies change in bowel habits, Denies dyspepsia and Denies nausea Denies hematuria and Denies dysuria Musc Denies abnormal gait, Denies myalgias, Denies arthralgias, Denies numbness and Denies tingling Skin/Breast Reports rash, Denies unusual bruising and Denies wounds Neuro Denies abnormal gait, Denies dizziness, Denies headache(s), Denies memory loss, Denies numbness, Denies Sensory deficit (Neuro), Denies tingling and Denies weakness Psych Denies anxiety, Denies depression and Denies memory loss Endo Denies cold intolerance, Denies fatigue, Denies heat intolerance, Denies polydipsia and Denies polyuria Stevan/Lymph Denies easy bleeding and Denies easy bruising Aller/Immun Denies wheezing Physical exam (Primary Care) Vital Signs: Last Vital Signs Temp 97.7 F 07/14/25 09:12 Pulse 72 07/14/25 09:12 Resp 15 07/14/25 09:12 BP 98/62 07/14/25 09:12 Pulse Ox 96 07/14/25 09:12 Oxygen Delivery Method Room Air 07/14/25 09:12 BMI result Body Mass Index 21.7 Tobacco/Smoking Status: Tobacco use Status Tobacco use date assessed 07/14/25 07/14/25 09:15 Patient Tobacco Use Status Never used Tobacco 07/14/25 09:12 e-Cigarette/Vaping Use Never Used 07/14/25 09:12 Depression Screening Interpretation: Negative Thrive Assessment: Date of Thrive Assessment Date Thrive assessed 08/18/24 07/14/25 09:07 Currently or been in a relationship where the following occur: No concerns reported Const General: no acute distress, well developed, alert and awake Nutritional Appearance: well nourished Orientation/consciousness: patient oriented x3 HENMT Head: Yes normocephalic and Yes atraumatic Ears: hearing grossly normal bilaterally and TM's normal bilaterally General nose exam: Normal external nose present and Normal nares present Mouth: Normal oral and palatal mucosa present and moist mucous membranes Teeth and gingiva: dentition normal Throat: Yes posterior oropharynx normal Eyes General: appearance normal, both eyes and all related structures Pupils: Equal, round and reactive pupils present and Pupil accommodation reflex normal EOM: EOMs intact bilaterally Neck Neck: Yes normal visual inspection, Yes no lymphadenopathy and Yes trachea midline Thyroid: Thyroid normal Carotids: no bruits Lymphatic: no lymphadenopathy noted Chest Chest palpation & inspection: normal inspection of the chest Resp Effort & Inspection: normal respiratory effort Auscultation: clear to auscultation bilaterally Cardio Rate: regular rate Rhythm: regular rhythm Heart sounds: S1 normal heart sound present, S2 normal heart sound present, no gallops, no murmurs and no rubs Bruits: no abdominal aortic bruits and no carotid bruits GI Palpation (GI): No Abdominal aortic bruit present, Soft to palpation, nontender, No hepatosplenomegaly present and No Rebound tenderness present Auscultation: normal bowel sounds General: Yes no CVA tenderness Back/Spine/Pelvis Back: no CVA tenderness Cervical Spine: cervical ROM normal and No Cervical spine tenderness Thoracic/Lumbar Spine: thoraco-lumbar ROM normal, No pain with thoraco-lumbar ROM, No thoracic spinal tenderness and No lumbar spinal tenderness Skin Lesions: no lesions Rashes: no rashes Trauma: no lacerations or abrasions Wounds: no wounds Nails: normal Neuro General: patient oriented x3 Cranial nerves: Yes Equal, round and reactive pupils present Cognition (Neuro): normal cognition Gait exam (Neuro): Normal gait present Motor exam (neuro): 5/5 motor strength present throughout Sensory Exam: No Sensory deficit (Neuro) Deep tendon reflexes (DTR's): Right patellar reflex intensity grade: 2+ and Left patellar reflex intensity grade: 2+ Extrem General: Yes normal to inspection and No edema Psych Appearance: grossly normal Affect: normal affect Attitude: cooperative Thought process: Normal thought process present Coding Level of Care Code Est Pt Level 3 (35969) New Pt Prev Care 40-64y(11181) Diagnoses Adult general medical exam Z00.00 Rib pain on right side R07.89 Rash R21 Joint pain M25.50 Hyperlipidemia E78.5 Screening for colon cancer Z12.11 Screening for prostate cancer Z12.5 Additional Codes FAZAL-7 Assessment Billing - FAZAL-7 Assessment Tool: FAZAL-7 Assessment 51095 ([id number]) Assessment & Plan Assessment & Plan (1) Adult general medical exam: Code(s): Z00.00 - Encounter for general adult medical examination without abnormal findings Category: Medical Plan: 49-year-old male presents for complete physical exam Encouraged healthy diet with active lifestyle and plenty of exercise (2) Rib pain on right side: Code(s): R07.89 - Other chest pain Category: Medical Plan: Right costal margin pain which persists though is not worse X-rays are normal and prior ultrasound of liver is unremarkable regarding tenderness at costal margin Likely rectus abdominis muscle attachment strain Can use ice/heat and topical NSAIDs. Also using some celecoxib which is helpful and useful as he also has issues with GERD/gastritis - he is tolerating celecoxib. (3) Rash: Code(s): R21 - Rash and other nonspecific skin eruption Category: Medical Plan: Rash at flanks and lateral buttocks Appears to be mild eczema Hydrate well and use moisturizing cream with no dyes or perfumes Can also try a daytime antihistamine If not improving he will let me know. We can try a steroid cream or if still not improving would refer to Dermatology (4) Joint pain: Code(s): M25.50 - Pain in unspecified joint Category: Medical Plan: Ongoing hand pain and patient notes that when he uses celecoxib a couple of times a week it is improved Inflammatory markers and x-rays were unremarkable. Using celecoxib couple of times a week and this helps. Tolerating celecoxib without worsening stomach issues. Can also use ice/heat and topical such as Aspercreme Offered occupational therapy but he declines this for now He will let me know if worsening or medications are not helping. (5) Hyperlipidemia: Code(s): E78.5 - Hyperlipidemia, unspecified Category: Medical Plan: LDL cholesterol was elevated at last check Due to repeat this and we will discuss at his next encounter. (6) Screening for colon cancer: Code(s): Z12.11 - Encounter for screening for malignant neoplasm of colon Category: Medical Plan: Patient had colonoscopy earlier this year. Recommended follow-up in 3 years; 2027 (7) Screening for prostate cancer: Code(s): Z12.5 - Encounter for screening for malignant neoplasm of prostate Category: Medical Plan: Due for PSA test. PSA last year was within normal range Ordered Orders: Orders AMB Hemoglobin A1c Today R73.01 - Impaired fasting glucose Lipid Panel Today E78.5 - Hyperlipidemia, unspecified, Z00.00 - Encounter for general adult medical examination without abnormal findings Basic Metabolic Panel Fasting Today E78.5 - Hyperlipidemia, unspecified Prostate Specific Antigen Scr Today Z12.5 - Encounter for screening for malignant neoplasm of prostate TSH reflex Free T4 Today Z00.00 - Encounter for general adult medical examination without abnormal findings
[2025-07-14 09:12] VITALS: BP 98/62; PULSE 72; RESP 15; TEMP 36.5; O2SAT 96; BMI 21.7
== END 2025-07-14 09:44 | disposition home or self-care (01) ==
LOC: HO.HMCFM 08:54
PROVIDERS: PCP Family Medicine; Visit Provider Family Medicine
DX: Z00.00 Encounter for general adult medical examination without abnormal findings (principal); R07.89 Other chest pain; R21 Rash and other nonspecific skin eruption; E78.5 Hyperlipidemia, unspecified; M79.642 Pain in left hand; Z12.5 Encounter for screening for malignant neoplasm of prostate

== ENCOUNTER → 2025-07-14 08:53 | Outpatient (BNVA) | payer OTHER, SELFPAY | PROVIDERS: PCP Family Medicine; Visit Provider Family Medicine | DX: Z00.00 Encounter for general adult medical examination without abnormal findings (principal); Z12.11 Encounter for screening for malignant neoplasm of colon; Z12.5 Encounter for screening for malignant neoplasm of prostate; R07.89 Other chest pain; R21 Rash and other nonspecific skin eruption; M25.50 Pain in unspecified joint; E78.5 Hyperlipidemia, unspecified | CPT/HCPCS: 96127; 99396 ==